=== PATIENT | female | born 1950 | race Caucasian/White ===

== ENCOUNTER → 2020-02-15 11:07 | Outpatient (BNVA) | payer MEDICARE, OTHER, SELFPAY | PROVIDERS: PCP Nurse Practitioner Family; Visit Provider Specialist | DX: R00.2 Palpitations (principal); I99.8 Other disorder of circulatory system; I10 Essential (primary) hypertension; F17.210 Nicotine dependence, cigarettes, uncomplicated | CPT/HCPCS: 99204 ==

== ENCOUNTER 2020-02-28 08:28 | Outpatient (CLI) | payer MEDICARE, OTHER, SELFPAY ==
--- NOTE | 2020-02-28 08:41 | MR_ITS ---
WS: [id number] MRI HEAD WITHOUT CONTRAST TECHNIQUE: Sagittal T1, T2 axial, T2 axial FLAIR, axial and coronal T1 images, axial susceptibility w eighted imaging, axial diffusion weighted images, and coronal T2 images were obtained. CLINICAL INFORMATION: TIA COMPARISON: None. FINDINGS: No evidence of restricted diffusion to suggest acute ischemia. Ventricular system and basal cisterns are patent. Moderate small vessel changes. Moderate parenchymal volume loss. Small vessel changes in the subhash. Normal posterior fossa. Normal vascular flow voids at the skull base. No extra-axial fluid collections. Paranasal sinuses and mastoid air cells well aerated. No hemosiderin on susceptibly weighted images. Normal optic chiasm and pituitary infundibulum. Mild s ymmetric atrophy involving the temporal lobes and hippocampal formations. MR/MR head wo con* [id number] IMPRESSION: 1. No evidence of restricted diffusion to suggest acute ischemia. 2. Moderate small vessel changes with moderate parenchymal volume loss. Small vessel changes in the subhash. 3. Paranasal sinuses and mastoid air cells are well aerated. 4. Mild symmetric atrophy temporal lobes and hippocampal formations. 5. No hemosiderin on susceptibly weighted images.
--- NOTE | 2020-02-28 09:51 | USCV_ITS ---
Janene Anne Age: 69 Gender: F : 1950 Exam Date: 02/28/2020 09:47 Ordering Phys: Golden Kruger MD ([email or web address]) Technologist: Alvino Ramos Exam Location: [facility] – [place] Indication: CCA DISEASE Risk Factors: None Previous Vascular Surgery: None Right Brachial BP: / Left Brachial BP: / Right Left Velocity (cm/s) Spectral Plaque Velocity (cm/s) Spectral Plaque Syst/Diast Broadening Syst/Diast Broadening 55.10/ 12.10 Prox CCA 55.00 / 14.50 57.30/ 14.30 Mid CCA 52.00 / 16.80 55.10/ 15.40 Homo Distal CCA 41.30 / 10.70 Hetro 99.80/ 31.40 Hetro Prox ICA 49.70 / 17.60 Hetro 54.30/ 13.40 Mid ICA 55.00 / 19.90 64.00/ 23.20 Distal ICA 71.10 / 19.90 85.30 ECA 81.80 1.74 ICA/CCA 1.29 Antegrade Vertebral Antegrade 42.80/ 16.00 cm/s 40.50/ 9.90 cm/s Tri Subclavian Tri CONCLUSIONS Right ICA stenosis <50%. Moderate atheromatous plaque right carotid bulb/ICA. Left ICA stenosis <50%. Moderate atheromatous plaque left carotid bulb/ICA. Normal antegrade Doppler flow noted in the right vertebral artery. Normal antegrade Doppler flow noted in the left vertebral artery. Leeroy Michael MD (Electronically Signed) Final Date: 29 Feb 2020 08:21 S
== END 2020-02-28 08:29 | disposition home or self-care (01) ==
PROVIDERS: Family Provider Nurse Practitioner Family; PCP Nurse Practitioner Family; Visit Provider Specialist
DX: I99.8 Other disorder of circulatory system (principal); I25.84 Coronary atherosclerosis due to calcified coronary lesion; I65.23 Occlusion and stenosis of bilateral carotid arteries
CPT/HCPCS: 70551; 93880

== ENCOUNTER → 2020-04-04 10:10 | Outpatient (BNVA) | payer MEDICARE, OTHER, SELFPAY | PROVIDERS: Family Provider Nurse Practitioner Family; PCP Nurse Practitioner Family; Visit Provider Obstetrics & Gynecology | DX: N39.3 Stress incontinence (female) (male) (principal); N81.10 Cystocele, unspecified | CPT/HCPCS: 81000 ==

== ENCOUNTER 2020-04-19 10:45 | Observation (INO) | payer MEDICARE, OTHER, SELFPAY ==
--- NOTE | 2020-04-17 10:36 | ANES.PREANE2 ---
Pre-Anesthetic Assessment Pre-Anesthetic Assessment: Height/Weight: Height 1.55 m Weight 66.678 kg Preop Diagnosis: Cystocele stage I and stress urinary incontinence Proposed Procedure: Operation Date: 04/19/20 11:00 Proposed Procedures p midurethral single incision sling(Not Applicable) - Kobe Alva MD Social: Social History: Tobacco and No alcohol Exam: Pre-Anes Outpt Exam: alert, oriented x 3, clear to auscultation bilaterally and regular rate & rhythm Airway: Submandibular: WNL Cervical ROM: WNL MP: 2 Dentition: False (lowers) and Partials (upper) History/ROS: No significant history except as noted Pulmonary: Pulmonary: None reported CV/HEM: CV/HEM: HTN : Comments: stress incontinance Hepatic: Hepatic: None reported GI: GI: GERD (well controlled) Metabolic: Metabolic: DM and Hyperlipidemia Musc/skel: Musc/skel: OA/DJD Neuropsych: Neuropsych: Anxiety, CVA (right side weakness, 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) and Depression Anesthetic Plan: ASA status: 3 Anesthesia: Anesthesia Evaluation and General Other: Scop patch Risk of > 500 ml blood loss (7ml/kg in children): Yes, adequate IV access and fluids planned PFSH Anesthesia PFSH: Medical History Carotid arterial disease Chest pain HTN (hypertension) Hx of dizziness Palpitations Tobacco abuse Vaginal prolapse Surgical History (Updated 04/17/20 @ 10:37 by Sathish Almeida MD) H/O arthroscopic knee surgery H/O bladder repair surgery H/O section H/O neck surgery History of carpal tunnel surgery Hx of cholecystectomy Hx of hysterectomy, total Family History Daughter No problems noted. Brother Colon cancer, Onset Age: 64 Diabetes Hypertension Mother Diabetes Hypertension Stroke Denies family history of Clotting disorder Hyperlipidemia Anesthesia complication Bleeding disorder Social History Smoking and tobacco status: current every day smoker cigarettes Packs smoked per day: 0.5 Alcohol intake: never Lives independently: Yes Household members: spouse Marital status: Data Anesthesia CBC & Chem 7: 04/17/20 10:06 Cardiac Studies: No Data to Display
[2020-04-17 11:06] LABS: Basophils # 0.1 10^3/uL (0.0-0.1); Basophils % 1.1 %; Eosinophils # 0.4 10^3/uL (0.0-0.8); Eosinophils % 3.6 %; Hematocrit 40.2 % (37.0-47.0); Hemoglobin 13.3 g/dL (11.5-15.3); Lymphocytes # 3.5 10^3/uL (0.8-4.8); Lymphocytes % 34.8 %; Mean Corpuscular HGB Conc 33.1 g/dL (30.0-36.0); Mean Corpuscular Hemoglobin 31.3 pg (28.0-34.0); Mean Corpuscular Volume 94.6 fL (81-99); Mean Platelet Volume 10.1 fL (7.4-10.4); Monocytes # 0.8 10^3/uL (0.2-0.9); Monocytes % 7.5 %; Neutrophils # 5.3 10^3/uL (1.8-7.7); Neutrophils % 52.8 %; Nucleated Red Blood Cells % 0 %; Platelet Count 229 10^3/cmm (130-400); Red Blood Count 4.25 10^6/uL (4.1-5.3); Red Cell Distribution Width 12.9 % (12.1-15.1)
[2020-04-17 11:09] LABS: Add Urine Microscopic? NO
[2020-04-17 11:30] LABS: Alanine Aminotransferase 21 U/L (0-33); Albumin Level 4.6 g/dL (3.5-5.2); Alkaline Phosphatase 40 IU/L (35-105); Anion Gap 18.8 (5-19); Aspartate Amino Transferase 29 U/L (0-32); Blood Urea Nitrogen 20 mg/dL (8-23); Calcium 9.9 mg/dL (8.5-10.5); Carbon Dioxide 25 mmol/L (22-29); Chloride 99 mmol/L (98-107); Globulin 3.1 g/dL (1.3-4.6); Glomerular Filtration Rate 49.2 mL/min (90-130); Glucose 116 mg/dL (65-115); Osmolality Calculated 284 mOsm/kg (285-295); Potassium 4.8 mmol/L (3.5-5.1); Sodium 138 mmol/L (136-145); Total Bilirubin 0.4 mg/dL (0.15-1.2); Total Protein 7.7 g/dL (6.6-8.7)
[2020-04-17 11:46] LABS: Bilirubin Urine Neg (NEGATIVE); Blood Urine Neg (Negative); Glucose Urine UA Norm (Normal); Ketones Urine Negative (Negative); Leukocyte Esterase Urine Negative (Negative); Nitrate Urine Negative (Negative); Protein Urine Neg (Negative); Urine Appearance Clear (CLEAR); Urine Color Yellow (Yellow); Urobilinogen Urine Norm (Negative); pH Urine 5 (5-7)
[2020-04-19] VITALS (17 sets, daily range): BP systolic 96–128; BP diastolic 53–85; PULSE 62–90; RESP 12–21; TEMP 35.8–36.7; O2SAT 93–100
[2020-04-19] MEDS: sodium chloride 0.9% 1,000 ML 30 ML IV (08:25)
[2020-04-19] MEDS: gabapentin 300 mg Capsule PO (08:34)
[2020-04-19] MEDS: ketorolac 30 mg/mL INJ IVP ×3 (08:34→17:27)
[2020-04-19 08:35] LABS: Glucose Point of Care 133 mg/dL (70-110)
--- NOTE | 2020-04-19 09:04 | W.PM.OPSUD ---
Surgery/Procedure H&P Update DATE OF PROCEDURE: April 19, 2020 DATE H&P PERFORMED: 04/17/20 H&P UPDATE INFORMATION: I have reviewed H&P completed within last 30 days, I have examined patient prior to procedure and No changes to prior documentation PREOP DIAGNOSIS: Cystocele stage I and stress urinary incontinence PLANNED PROCEDURE: Operation Date: 04/19/20 09:10 Proposed Procedures p midurethral single incision sling(Not Applicable) - Kobe Alva MD
--- NOTE | 2020-04-19 10:22 | PM.OP ---
Operative Report Date of procedure: April 19, 2020 Pre-op Diagnosis: Cystocele stage I and stress urinary incontinence Post-op diagnosis: same Procedure Done: Single incision midurethral sling Pathology: none sent Anesthesia: General Estimated blood loss (mL): 10 IV fluids (mL): 900 Urine output (mL): 100 Condition: stable Disposition: PACU Brief History: 69-year-old female post hysterectomy and anterior repair with TOT developed stress urinary incontinence. Procedure: After obtaining informed consent, the patient was taken to the operating room and placed in the supine position, given general anesthesia, and prepped and draped in sterile fashion. The abdomen, vulva and vagina were prepped and draped in a sterile manner. A time out procedure was performed. Exam under anesthesia performed. A Ramirez catheter was placed in the bladder. The anterior vaginal mucosa beneath the midurethra was infiltrated with 0.5% Marcaine with epinephrine. A vertical midline incision was made beneath the midurethra, nearly 1.5 cm length. Careful submucosal dissection was performed bilaterally up to the interior portion of the inferior pubic ramus. The insertion of adductor longus tendon on the patient?s pubic ramus was identified as reference land johnson. Palpated the notch along the internal edge of ischiopubic ramus where the adductor longus tendon and the inferior pubic ramus meet. The needle of the SIS inserted aiming at the location of this notch. One of the integrated self-fixating tips place onto the needle by sliding it over the end of the needle. The needle/sling assembly was inserted toward the location of identified reference notch making sure that the flat of the handle is perpendicular to the desired path. The needle was tracked along the posterior surface of the ischiopubic ramus until the midline johnson on the mesh is approximately at the midline position under the urethra. The needle was removed and the same was repeated on the contralateral side until the appropriate sling tension under the urethra was achieved ensuring that the mesh lays flat. The needle was removed and vaginal incision was closed in a running interlocking fashion with 2-0 Vicryl. Excellent hemostasis was obtained. Sponge, lap, needle, and instrument counts were correct times three. The patient was taken to the recovery room, awake and in stable condition.
--- NOTE | 2020-04-19 10:39 | SUR.PHASEI ---
PT ON RA TRIAL, PT AWAKES TO VOICE, DENIES PAIN AND NAUSEA, VSS ABD SOFT WISAM PAD D/I
[2020-04-19] MEDS: sodium chloride 0.9% 1,000 ML 100 ML IV (10:45)
--- NOTE | 2020-04-19 11:07 | SUR.PHASEI ---
1052 PT RECOVERED AND OUT OF PHASE 1 NOW IN HOLDING , REPORT CALLED , PT NOW WAITING FOR BED PT SLEEPS IF NOT DISTURBED 1107 PT SLEEPING WITH NO COMPLAINTS VSS, WAITING FOR ROOM TO BE CLEANED.
--- NOTE | 2020-04-19 11:38 | SUR.PHASEI ---
1125 PT TO FLOOR MOVES SELF TO BED WITHOUT ASSIST, ROSE PATENT OF CLEAR YELLOW URINE, VSS
[2020-04-19] MEDS: pantoprazole DR 40 mg Tablet PO (12:32)
[2020-04-19] MEDS: sodium chloride 0.9% 500 ML IV (16:09)
[2020-04-19] MEDS: docusate sodium 100 mg Capsule PO (17:27)
[2020-04-19] MEDS: dextrose 5%-lactated ringers 1,000 ML 125 ML IV (17:30)
[2020-04-19] MEDS: sodium chloride 0.9% 500 ML 999 ML IV ×2 (18:18→18:56)
[2020-04-19] MEDS: atorvastatin 40 mg Tablet PO (20:51)
[2020-04-19] MEDS: ALPRAZolam 0.5 mg Tablet PO (20:51)
[2020-04-20 04:15] VITALS: BP 103/64; PULSE 71; RESP 18; TEMP 36.7
[2020-04-20 05:23] LABS: Hematocrit 31.5 % (37.0-47.0); Hemoglobin 9.9 g/dL (11.5-15.3); Mean Corpuscular HGB Conc 31.4 g/dL (30.0-36.0); Mean Corpuscular Hemoglobin 30.7 pg (28.0-34.0); Mean Corpuscular Volume 97.8 fL (81-99); Mean Platelet Volume 10.4 fL (7.4-10.4); Platelet Count 167 10^3/cmm (130-400); Red Blood Count 3.22 10^6/uL (4.1-5.3); Red Cell Distribution Width 13.2 % (12.1-15.1); White Blood Count 8.6 10^3/uL (4.0-10.0)
[2020-04-20 06:15] VITALS: PULSE 77; RESP 18; O2SAT 95
--- NOTE | 2020-04-20 09:00 | P.DS_ITS ---
Discharge Providers MULTI LINE CLAIMS ADJUSTER Date of Admission: 04/19/20 10:45 Date of Discharge: 05/25/20 Attending Provider at Admission: Kobe Alva MD Attending Provider at Discharge: Kobe Alva MD Primary Care Provider: EVARISTO Nunez Reason for Visit Reason for Visit: urinary stress incontinence vaginal prolapse Hospital Course Hospital Course: 69-year-old female with stress urinary incontinence. Single incision mid urethral sling was performed without complication. Overnight observation was uneventful. Physical Exam Narrative: EXAM NARRATIVE: GA: Alert and oriented ?3. HEENT: WNL. Heart: Regular rate and rhythm. Lungs: Clear to auscultation bilaterally. Abdomen: Bowel sounds present, nontender, minimal tenderness, incision clean and dry, no redness, pain or edema. 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 Extremities: No edema, no cyanosis, no calves pain. Urinary Catheter Management^: Ramirez: Cath Placed During This Visit: yes Urinary Catheter Date of Insertion: 04/19/20 Urinary Catheter Time of Insertion: 09:53 Discharge Data Data Completed and Pending: Labs from last 24 hours 04/20/20 04:40 WBC 8.6 RBC 3.22 L Hgb 9.9 L Hct 31.5 L MCV 97.8 MCH 30.7 MCHC 31.4 RDW 13.2 Plt Count 167 MPV 10.4 Vitals: Last Vital Signs Temp 98.1 F 04/20/20 04:15 Pulse 77 04/20/20 06:15 Resp 18 04/20/20 06:15 BP 103/64 04/20/20 04:15 Pulse Ox 95 04/20/20 06:15 Discharge Plan Discharge Patient Disposition: Home Condition: Stable Prescriptions: Continued lisinopril-hydrochlorothiazide 20-12.5 mg tablet 1 tab PO DAILY RF: 0 duloxetine [Cymbalta] 60 mg capsule,delayed release(DR/EC) 60 mg PO DAILY RF: 0 alprazolam 0.5 mg tablet 0.5 mg PO DAILY RF: 0 metoprolol succinate 50 mg tablet extended release 24 hr 50 mg PO DAILY RF: 0 atorvastatin 40 mg tablet 40 mg PO DAILY RF: 0 duloxetine 30 mg capsule, delayed rel sprinkle 60 mg PO DAILY RF: 0 levothyroxine 50 mcg tablet 25 mcg PO DAILY RF: 0 metformin 500 mg tablet 500 mg PO DAILY RF: 0 omeprazole 20 mg capsule,delayed release(DR/EC) 20 mg PO DAILY RF: 0 No Action nitrofurantoin macrocrystal 100 mg capsule 100 mg PO BID 5 Days Qty: 10 RF: 0 Discharge Orders: Discharge Order (Routine); Ordered 04/20/20 Ordered By: Kobe Alva Referrals: Kobe Alva MD [Physician] - 04/28/20 2:45 pm (Please keep these appointments and disregard the appointments that was pr eviously given to you * Your 2 week incision check is 04/28/2020 at 2:45 * Your 6 week appointment is 05/30/2020 at 12:45) Discharge Diet: As Directed Discharge Activity: Increase activity as tolerated Patient Instructions: Hydrocodone/Acetaminophen (By mouth), Ramirez Catheter Placement and Care (DC), Bladder Sling Procedures (DC), Urinary Leg Bag (GEN), OB Abdominal Surgery - [facility], OB Discharge Report, OB Food/Drug Interaction Guide, Post Anesthesia Care Activity Restrictions/Additional Instructions: Pelvic rest for 6 weeks (no sex, no tampons, no vaginal douches). Return to the emergency room if any fever, increased bleeding or pain. Discharge Date/Time: 04/20/20 16:30 Discharge Attestations MULTI LINE CLAIMS ADJUSTER Time Spent in Discharge Care*: greater than 30 min Specific Discharge Activities: Specific discharge activities: educating patient Coding Level of Care Code Acute Axle And Frame Mechanic for Tanya Thompson
[2020-04-20] MEDS: lisinopril 20 mg Tablet PO (09:41)
[2020-04-20] MEDS: levothyroxine 25 mcg Tablet PO (09:42)
[2020-04-20] MEDS: hydroCHLOROthiazide 25 mg Tablet 12.5 MG PO (09:43)
[2020-04-20] MEDS: docusate sodium 100 mg Capsule PO (09:44)
[2020-04-20] MEDS: pantoprazole DR 40 mg Tablet PO (09:44)
[2020-04-20] MEDS: duloxetine 60 mg Capsule PO (09:44)
[2020-04-20] MEDS: metoprolol succinate ER (24 HR) 50 mg Tablet PO (09:47)
[2020-04-20 12:00] VITALS: BP 128/66; PULSE 72; RESP 16; TEMP 36.7; O2SAT 98
[2020-04-20 16:00] VITALS: BP 128/63; PULSE 71; RESP 18; TEMP 36.8; O2SAT 96
== END 2020-04-20 16:30 | disposition home or self-care (01) ==
LOC: OBGYN 10:45
PROVIDERS: Admitting Provider Obstetrics & Gynecology; PCP Nurse Practitioner Family; Visit Provider Obstetrics & Gynecology
PROC: (CPT 57288; principal; 2020-04-19 09:10)
DX: N81.10 Cystocele, unspecified (principal); N39.3 Stress incontinence (female) (male); E11.65 Type 2 diabetes mellitus with hyperglycemia; I10 Essential (primary) hypertension; E78.5 Hyperlipidemia, unspecified; F17.210 Nicotine dependence, cigarettes, uncomplicated; I69.351 Hemiplegia and hemiparesis following cerebral infarction affecting right dominant side; Z79.84 Long term (current) use of oral hypoglycemic drugs; Z90.710 Acquired absence of both cervix and uterus
CPT/HCPCS: 57288; 12345; 36415; 36416; 51702; 51798; 80053; 81003; 82962; 85025; 85027; 86850; 86900; 96361; 96365; 96374; 96375; C1713; G0378; J0690; J1885; J2001; J2704; J3010; J3490; J7030; J7040

== ENCOUNTER → 2020-06-21 07:54 | Outpatient (BNVA) | payer MEDICARE, OTHER, SELFPAY | PROVIDERS: PCP Nurse Practitioner Family; Visit Provider Specialist | DX: I99.8 Other disorder of circulatory system (principal); G31.84 Mild cognitive impairment of uncertain or unknown etiology; I67.9 Cerebrovascular disease, unspecified; F17.210 Nicotine dependence, cigarettes, uncomplicated; I10 Essential (primary) hypertension; E11.9 Type 2 diabetes mellitus without complications | CPT/HCPCS: 96116; 99214 ==

== ENCOUNTER → 2020-08-30 09:15 | Outpatient (BNVA) | payer MEDICARE, OTHER, SELFPAY | PROVIDERS: PCP Nurse Practitioner Family; Visit Provider Specialist | DX: G31.84 Mild cognitive impairment of uncertain or unknown etiology (principal); R56.9 Unspecified convulsions; I99.8 Other disorder of circulatory system; I67.9 Cerebrovascular disease, unspecified; F17.210 Nicotine dependence, cigarettes, uncomplicated | CPT/HCPCS: 96116; 99214 ==

== ENCOUNTER 2020-09-11 07:34 | Outpatient (CLI) | payer MEDICARE, OTHER, SELFPAY ==
--- NOTE | 2020-09-11 08:13 | MR_ITS ---
WS: [id number] MRI BRAIN WITHOUT CONTRAST HISTORY: I99.8 - Other disorder of circulatory system COMPARISON: 02/28/2020 TECHNIQUE: Diffusion imaging, multiplanar T1, T2 and FLAIR imaging obtained. No evidence for acute infarct or hemorrhage. Huggins-white matter differentiation is normal. Mild atrophy with more moderate chronic ischemic changes in the white matter. Bilateral distribution T2 and FLAIR signal hyperintensities. There is additional moderate bilateral microvascular ischemic c hanges in the subhash. No significant progression. Ventricles and extra-axial spaces are normal. No inferior displacement of cerebellar tonsils. The sella turcica and pituitary gland are unremarkabl e. Posterior fossa is also unremarkable. Dural venous sinuses and [place] demonstrate no abnormality on this unenhanced studies. Paranasal sinuses: Clear. Mastoid air cells: Normal. Calvarium and scalp: Intact. MR/MR head wo con* [id number] IMPRESSION: 1. No acute infarct or hemorrhage. 2. Mild stable cerebral atrophy. 3. Moderate chronic microvascular ischemic disease in the supratentorial white matter and bilaterally within the subhash. No significant progression since 2019.
== END 2020-09-11 07:35 | disposition home or self-care (01) ==
LOC: RADWPI 07:37
PROVIDERS: PCP Nurse Practitioner Family; Visit Provider Specialist
DX: I99.8 Other disorder of circulatory system (principal); G31.9 Degenerative disease of nervous system, unspecified; I67.82 Cerebral ischemia
CPT/HCPCS: 70551

== ENCOUNTER 2020-09-27 18:23 | Emergency (ER) | payer MEDICARE, OTHER, SELFPAY ==
--- NOTE | 2020-09-27 18:28 | ECG_ITS ---
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 Measurements Intervals [place] Rate: 78 P: 21 MI: 105 QRS: 81 QRSD: 76 T: 80 QT: 339 QTc: 387 Interpretive Statements SINUS RHYTHM WITH SHORT MI INTERVAL INTERPRETATION BASED ON A DEFAULT AGE OF 40 YEARS Compared to ECG 09/23/2019 10:39:19 Short MI interval now present Electronically Signed On 09-28-2020 22:23:51 BIT TRIPOL[employer] by Sheyla Ervin M.D. [email or web address]
--- NOTE | 2020-09-27 18:28 | XR_ITS ---
WS: [id number] PORTABLE CHEST HISTORY: sob COMPARISON: 09/26/2020 Lungs are clear and well expanded. No pleural effusion or pneumothorax. Cardiac size: Normal. Mediastinum/Aorta: Mild atherosclerosis aorta. Prior anterior cervical fusion. XR/XR chest 1V portable [id number] IMPRESSION: Partially calcified thoracic aorta. No pneumonia.
[2020-09-27 18:34] VITALS: BP 139/83; PULSE 86; RESP 18; TEMP 37; O2SAT 95; BMI 28.7
--- NOTE | 2020-09-27 18:36 | ECG_ITS ---
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 Measurements Intervals [place] Rate: 78 P: 21 MA: 105 QRS: 81 QRSD: 76 T: 80 QT: 339 QTc: 387 Interpretive Statements SINUS RHYTHM WITH SHORT MA INTERVAL INTERPRETATION BASED ON A DEFAULT AGE OF 40 YEARS Compared to ECG 09/23/2019 10:39:19 Short MA interval now present Electronically Signed On 09-28-2020 22:23:06 SALES REPRESENTATIVE FACILITY [employer] by Sheyla Ervin M.D. [email or web address]
--- NOTE | 2020-09-27 18:37 | ED_ITS ---
HPI - SOB/Dyspnea General: Chief Complaint: Shortness of Breath/Dyspnea Stated Complaint: pneumonia, SOB Time Seen by Provider: 09/27/20 18:27 Source: patient Mode of arrival: ambulatory Limitations: no limitations History of Present Illness: HPI Narrative: Mrs. Anne is a very nice 69-year-old female who comes in complaining of shortness of breath and cough. Patient states she has been sick since September 12 and has had 2 rounds of steroids and has been tested for Covid but has not improved. Her Covid test was negative. Patient states her cough is occasionally productive and when is she has yellow-green sputum. She denies any hemoptysis. Symptoms are made worse with exertion. She is wheezing. Patient stopped her steroids approximately 3 to 4 days ago and she started antibiotics yesterday. She was placed on doxycycline. Patient had outpatient lab work and a chest x-ray which showed a markedly elevated white blood cell count and because of this and what she states was a pneumonia on her chest x-ray she was referred here for reevaluation. Patient states overall her symptoms are not better but worse. She did state at the beginning of this that she had some diarrhea and nausea but that has since passed. Patient has a history of smoking but does not carry the diagnosis of COPD or emphysema. Other than what she is described here she denies any other complaints or concerns other than generalized flulike symptoms. Associated symptoms: Reports chest congestion and fever(s); Deny abdominal pain, chest pain, diaphoresis, dizziness, extremity pain, hemoptysis, lightheadedness, nausea, orthopnea, palpitations, syncope or vomiting Review of Systems Const: Reports: fever(s), chills, body aches, fatigue and malaise; Denies: diaphoresis Eyes: Denies: change in vision, blurry vision, photophobia, eye discomfort, eye discharge, eye redness or yellow eyes ENMT: Denies: throat pain, odynophagia, hoarseness, swelling of lips/tongue, ear or mastoid pain, ear discharge, change in hearing or nasal discharge Card: Denies: chest pain, palpitations, irregular heart rhythm, edema, lightheadedness, syncope, pre-syncope, dyspnea on exertion or orthopnea Resp: Reports: dyspnea, productive cough, wheezing and chest congestion; Denies: non-productive cough or hemoptysis GI: Denies: abdominal pain, nausea, vomiting, hematemesis, coffee ground emesis, heartburn, diarrhea, constipation, GI cramping, hematochezia or melena : Denies: flank pain, dysuria, urinary frequency, urinary urgency or hematuria Musc: Denies: neck pain, back pain, extremity pain, extremity swelling, joint pain, joint swelling, joint redness, joint warmth or joint stiffness Skin/Breast: Denies: rash, pruritus, erythema, skin pain or skin tenderness Neuro: Denies: headache(s), numbness in extremities, weakness in extremities, sensory changes, lack of coordination, difficulty walking, dizziness, vertigo, confusion, Slurred speech present or seizure-like activity Rui/Lymph: Denies: easy bruising, easy bleeding, petechiae, purpura or enlarged lymph nodes All/Imm: Denies: urticaria, throat swelling, tongue swelling, facial swelling or acute wheezing PFSH ED PFSH: Medical History Aftercare following surgery of the genitourinary system Anxiety Carotid arterial disease Chest pain DM type 2 (diabetes mellitus, type 2) GERD (gastroesophageal reflux disease) HTN (hypertension) Hx of dizziness Hyperlipidemia Hypertension Hypothyroidism Palpitations Tobacco abuse Vaginal prolapse Surgical History H/O arthroscopic knee surgery H/O bladder repair surgery H/O section H/O neck surgery History of carpal tunnel surgery Hx of cholecystectomy Hx of hysterectomy, total Family History Daughter No problems noted. Brother Colon cancer, Onset Age: 64 Diabetes Hypertension Mother Diabetes Hypertension Stroke Denies family history of Clotting disorder Hyperlipidemia Anesthesia complication Bleeding disorder Social History Smoking and tobacco status: current every day smoker cigarettes Packs smoked per day: 0.5 Alcohol intake: never Lives independently: Yes Marital status: Physical Exam Const: COMMON NORMALS: no acute distress, patient oriented x3, no limitations and alert GENERAL APPEARANCE: cooperative HENMT: COMMON NORMALS: normocephalic, atraumatic, external ears normal, EAC's normal and Normal external nose present HEAD & SCALP: normal to inspection, normocephalic and atraumatic FACE & SINUS: normal facial exam and face symmetric NOSE: Normal external nose present and Normal nares present EXTERNAL EAR: Yes external ears normal EXTERNAL AUDITORY CANAL: EAC's normal MOUTH: Normal oral and palatal mucosa present, lip normal and tongue normal Eye: COMMON NORMALS: Equal, round and reactive pupils present and conjunctivae normal GENERAL EYE: appearance normal, both eyes and all related structures ALIGNMENT: Yes alignment normal PERIORBITAL: periorbital findings normal EYELID: eyelids normal CONJUNCTIVA: Yes conjunctivae normal SCLERA: sclerae normal PUPIL: Yes Equal, round and reactive pupils present Neck/C-Spine: COMMON NORMALS: full ROM, no lymphadenopathy, supple, no meningeal signs and no JVD GENERAL: Yes normal visual inspection and Yes trachea midline Chest: COMMONS NORMALS: normal inspection of the chest and normal palpation of entire chest wall Resp: COMMON NORMALS: No retractions and No use of accessory muscles EFFORT & INSPECTION: Yes able to speak in complete sentences, Yes symmetric chest movement, Yes labored, Yes Actively coughing and Yes audible wheezes AUSCULTATION: no crackles, no rales, rhonchi and wheezes Cardio: COMMON NORMALS: no JVD, regular rate, regular rhythm, S1 normal heart sound present and S2 normal heart sound present RATE: regular rate RHYTHM: regular rhythm HEART SOUNDS: S1 normal heart sound present, S2 normal heart sound present, no click, no gallops, no murmurs and no rubs GI: COMMON NORMALS: Soft to palpation and No hepatosplenomegaly present PALPATION: Yes Soft to palpation, No Tenderness to palpation present (GI), No Guarding due to palpation present (GI), No Rigid due to palpation, Yes No hepatosplenomegaly present, No Hernia present, No Palpable mass present and No Pulsatile mass present : COMMON NORMALS: Yes no CVA tenderness BLADDER/KIDNEY EXAM: Yes no CVA tenderness EXTERNAL FEMALE EXAM: No Hernia present Back/Pelvis: COMMON NORMALS: no CVA tenderness, thoracic and lumbar spine normal to inspection, no thoracic nor lumbar tenderness and thoraco-lumbar ROM normal Extremity: COMMON NORMALS: normal to inspection, full ROM, capillary refill normal, no joint enlargement, no clubbing, cyanosis or edema and no calf tenderness Neuro: COMMON NORMALS: patient oriented x3, CN's II-XII intact bilaterally, moves all extremities, no focal motor deficits and no sensory deficits noted SENSORIUM/ORIENTATION: Yes alert MENINGEAL SIGNS: Yes no meningeal signs SPEECH: speech normal Psych: COMMON NORMALS: mental status grossly normal, Normal thought process present, cooperative, normal affect, speech normal and activity/motor behavior normal SPEECH: Yes normal speech THOUGHT PROCESS: Normal thought process present Skin: COMMON NORMALS: no rashes or lesions noted, turgor normal, no jaundice, no petechiae and no mottling GENERAL SKIN EXAM: no rashes or lesions noted and turgor normal Course Vital Signs: Vital signs: Vital Signs Temperature 99.6 F 09/27/20 21:53 Pulse Rate 86 09/27/20 22:42 Respiratory Rate 18 09/27/20 22:42 Blood Pressure 98/66 09/27/20 21:53 Pulse Oximetry 96 09/27/20 22:42 MDM - SOB/Dyspnea MDM Narrative: Medical decision making narrative: 2209 -patient is feeling much better and is ready to go home. I have offered to put her in the hospital for further care but she declines. I am going to send the PTC test for Covid as I think the patient likely had this and may be does have a rebound bacterial infection. After her albuterol and fluids here and her fever has resolved she is feeling much better. The patient was offered admission but she declined. She feels that she would rest better at home. Her white blood cell count is markedly elevated but she has been on 10 days of steroids finishing 2 days ago. I think this along with an acute infection is likely the cause for this significant raise in her white blood cell count. Overall the patient is not significantly hypoxic and at rest she looks much better. She is ready to go home and declines admission but she does understand she is more than welcome to return if her symptoms worsen or she changes her mind. Lab Data: Attestation: I reviewed the patient's lab results. Labs: Lab Results 09/27/20 09/27/20 09/27/20 Range/Units 19:02 19:02 19:02 WBC 25.6 H (4.0-10.0) 10^3/ uL RBC 4.69 (4.1-5.3) 10^6/u L Hgb 13.8 (11.5-15.3) g/dL Hct 41.7 (37.0-47.0) % MCV 88.9 (81-99) fL MCH 29.4 (28.0-34.0) pg MCHC 33.1 (30.0-36.0) g/dL RDW 13.3 (12.1-15.1) % Plt Count 307 (130-400) 10^3/c mm MPV 10.0 (7.4-10.4) fL Neut % (Auto) 73.3 % Lymph % (Auto) 19.7 % Sierra % (Auto) 5.1 % Eos % (Auto) 0.7 % Baso % (Auto) 0.3 % Neut # (Auto) 18.83 H (1.8-7.7) 10^3/u L Lymph # (Auto) 5.0 H (0.8-4.8) 10^3/u L Sierra # (Auto) 1.3 H (0.2-0.9) 10^3/u L Eos # (Auto) 0.2 (0.0-0.8) 10^3/u L Baso # (Auto) 0.1 (0.0-0.1) 10^3/u L Nucleated RBC % (a uto) 0 % Nucleated RBCs # 0.0 /100WBC PT 12.70 (12.1-14.9) SECO NDS INR 0.93 (0.8-1.2) D-Dimer (0-0.59) ug/mIFE U Specimen Type Sample Site ABG pH (7.35-7.45) ABG pCO2 (35-45) mmHg ABG pO2 (80.0-100.0) mmH g ABG HCO3 (22-26) mmol/L ABG Base Excess (-2.0-2.0) mmol/ L Ben Test Hematocrit (37-47) % O2 Delivery Device O2 Liters/Min % Accounting Technician ID Sodium 135 L (136-145) mmol/L Potassium 5.1 (3.5-5.1) mmol/L Chloride 95 L (98-107) mmol/L Carbon Dioxide 27 (22-29) mmol/L Anion Gap 18.1 (5-19) BUN 23 (8-23) mg/dL Creatinine 1.1 H (0.5-0.9) mg/dL GFR Calculation 49.2 L (90-130) mL/min Glucose 114 (65-115) mg/dL Calculated Osmolal ity 285 (285-295) mOsm/k g Calcium 10.0 (8.5-10.5) mg/dL Total Bilirubin 0.5 (0.15-1.2) mg/dL AST 23 (0-32) U/L ALT 23 (0-33) U/L Alkaline Phosphata se 59 (35-105) IU/L Troponin T Baselin e (0-10) ng/L Troponin T 120 Min [place] (0-10) ng/L Delta Troponin T (0-10) ABS# NT-Pro-B Natriuret Pep 490 H (0-125) pg/mL Total Protein 6.6 (6.6-8.7) g/dL Albumin 3.7 (3.5-5.2) g/dL Globulin 2.9 (1.3-4.6) g/dL Influenza Type A A g (Negative) Influenza Type B A g (Negative) SARS-CoV-2 Ag (Rap id) (Negative) 09/27/20 09/27/20 09/27/20 Range/Units 19:02 19:02 19:02 WBC (4.0-10.0) 10^3/ uL RBC (4.1-5.3) 10^6/u L Hgb (11.5-15.3) g/dL Hct (37.0-47.0) % MCV (81-99) fL MCH (28.0-34.0) pg MCHC (30.0-36.0) g/dL RDW (12.1-15.1) % Plt Count (130-400) 10^3/c mm MPV (7.4-10.4) fL Neut % (Auto) % Lymph % (Auto) % Sierra % (Auto) % Eos % (Auto) % Baso % (Auto) % Neut # (Auto) (1.8-7.7) 10^3/u L Lymph # (Auto) (0.8-4.8) 10^3/u L Sierra # (Auto) (0.2-0.9) 10^3/u L Eos # (Auto) (0.0-0.8) 10^3/u L Baso # (Auto) (0.0-0.1) 10^3/u L Nucleated RBC % (a uto) % Nucleated RBCs # /100WBC PT (12.1-14.9) SECO NDS INR (0.8-1.2) D-Dimer 1.70 H (0-0.59) ug/mIFE U Specimen Type Arterial Sample Site Brachial, right ABG pH 7.55 H (7.35-7.45) ABG pCO2 32.2 L (35-45) mmHg ABG pO2 93.2 (80.0-100.0) mmH g ABG HCO3 27.9 H (22-26) mmol/L ABG Base Excess 5.8 H (-2.0-2.0) mmol/ L Ben Test N/a Hematocrit 42.9 (37-47) % O2 Delivery Device Nc O2 Liters/Min 2.0 % Accounting Technician ID Harkr Sodium (136-145) mmol/L Potassium (3.5-5.1) mmol/L Chloride (98-107) mmol/L Carbon Dioxide (22-29) mmol/L Anion Gap (5-19) BUN (8-23) mg/dL Creatinine (0.5-0.9) mg/dL GFR Calculation (90-130) mL/min Glucose (65-115) mg/dL Calculated Osmolal ity (285-295) mOsm/k g Calcium (8.5-10.5) mg/dL Total Bilirubin (0.15-1.2) mg/dL AST (0-32) U/L ALT (0-33) U/L Alkaline Phosphata se (35-105) IU/L Troponin T Baselin e 18 H (0-10) ng/L Troponin T 120 Min [place] (0-10) ng/L Delta Troponin T (0-10) ABS# NT-Pro-B Natriuret Pep (0-125) pg/mL Total Protein (6.6-8.7) g/dL Albumin (3.5-5.2) g/dL Globulin (1.3-4.6) g/dL Influenza Type A A g (Negative) Influenza Type B A g (Negative) SARS-CoV-2 Ag (Rap id) (Negative) 09/27/20 09/27/20 09/27/20 Range/Units 19:15 19:15 21:51 WBC (4.0-10.0) 10^3/ uL RBC (4.1-5.3) 10^6/u L Hgb (11.5-15.3) g/dL Hct (37.0-47.0) % MCV (81-99) fL MCH (28.0-34.0) pg MCHC (30.0-36.0) g/dL RDW (12.1-15.1) % Plt Count (130-400) 10^3/c mm MPV (7.4-10.4) fL Neut % (Auto) % Lymph % (Auto) % Sierra % (Auto) % Eos % (Auto) % Baso % (Auto) % Neut # (Auto) (1.8-7.7) 10^3/u L Lymph # (Auto) (0.8-4.8) 10^3/u L Sierra # (Auto) (0.2-0.9) 10^3/u L Eos # (Auto) (0.0-0.8) 10^3/u L Baso # (Auto) (0.0-0.1) 10^3/u L Nucleated RBC % (a uto) % Nucleated RBCs # /100WBC PT (12.1-14.9) SECO NDS INR (0.8-1.2) D-Dimer (0-0.59) ug/mIFE U Specimen Type Sample Site ABG pH (7.35-7.45) ABG pCO2 (35-45) mmHg ABG pO2 (80.0-100.0) mmH g ABG HCO3 (22-26) mmol/L ABG Base Excess (-2.0-2.0) mmol/ L Ben Test Hematocrit (37-47) % O2 Delivery Device O2 Liters/Min % Accounting Technician ID Sodium (136-145) mmol/L Potassium (3.5-5.1) mmol/L Chloride (98-107) mmol/L Carbon Dioxide (22-29) mmol/L Anion Gap (5-19) BUN (8-23) mg/dL Creatinine (0.5-0.9) mg/dL GFR Calculation (90-130) mL/min Glucose (65-115) mg/dL Calculated Osmolal ity (285-295) mOsm/k g Calcium (8.5-10.5) mg/dL Total Bilirubin (0.15-1.2) mg/dL AST (0-32) U/L ALT (0-33) U/L Alkaline Phosphata se (35-105) IU/L Troponin T Baselin e (0-10) ng/L Troponin T 120 Min [place] 14.75 H (0-10) ng/L Delta Troponin T -3.25 L (0-10) ABS# NT-Pro-B Natriuret Pep (0-125) pg/mL Total Protein (6.6-8.7) g/dL Albumin (3.5-5.2) g/dL Globulin (1.3-4.6) g/dL Influenza Type A A g Negative (Negative) Influenza Type B A g Negative (Negative) SARS-CoV-2 Ag (Rap id) Negative (Negative) Imaging Data^: CXR: Attestation: I personally reviewed and interpreted this imaging study as follows: My impression: Possible bilateral lower lobe interstitial infiltrates, right greater than left. CT Chest: Radiologist's impression: [address] [address] [address] Scan Report Signed Patient: Janene Anne Unit #: [id number] : 1950 Age/Sex: 69 / F ADM Date: 09/27/20 Loc: ER Room/Bed: Attending Dr: Ordering Provider/Ordering MD: Mary Danielle DO Date of Service: 09/27/20 Procedure(s): CT angio chest PE protcl [id number] Accession Number(s): [id number] Report Number: [id number] PROCEDURE INFORMATION: Exam: CT Angiography Chest With Contrast Exam date and time: 09/27/2020 9:08 PM Age: 69 years old Clinical indication: Cough and dyspnea; Additional info: Dyspnea, positive d-dimer TECHNIQUE: Imaging protocol: Computed tomographic angiography of the chest with intravenous contrast. 3D rendering (Not supervised by radiologist): MIP and/or 3D reconstructed images were created by the technologist. Radiation optimization: All CT scans at this facility use at least one of these dose optimization techniques: automated exposure control; mA and/or kV adjustment per patient size (includes targeted exams where dose is matched to clinical indication); or iterative reconstruction. Contrast material: VISI 320; Contrast volume: 61.5 ml; Contrast route: INTRAVENOUS (IV); COMPARISON: CTA Chest-Pulmonary Emb [id number] 12/09/2016 12:13 AM RADIATION DOSE METRICS: Total DLP (mGy-cm): 593.91 FINDINGS: Pulmonary arteries: Normal. No pulmonary emboli. Aorta: Unremarkable. No aortic aneurysm. No aortic dissection. Lungs: Bilateral airspace opacities greatest in the mid to lower lung field suggestive of an infectious process. Pleural space: Unremarkable. No pneumothorax. No pleural effusion. Heart: Unremarkable. No cardiomegaly. No pericardial effusion. Lymph nodes: Unremarkable. No enlarged lymph nodes. Gallbladder and bile ducts: Cholecystectomy. Bones/joints: Unremarkable. No acute fracture. Soft tissues: Unremarkable. CT/CT angio chest PE protcl [id number] IMPRESSION: 1. Negative for pulmonary embolus. 2. Bilateral airspace opacities greatest in the mid to lower lung field suggestive of an infectious process. 3. Cholecystectomy. Radiation Dose CTDIVOL = (mGy): DLP = 593.91 (mGy-cm) Dictated By: Rome Tanner MD Signed By: Rome Tanner MD Signed Date/Time: 09/27/202144 DD/ 42 EKG Data^: EKG 1: Attestation: I personally reviewed and interpreted this EKG as follows: EKG Interpretation Date: 09/27/20 EKG interpretation time: 18:40 Interpretation: Normal sinus rhythm at 78 beats a minute, short AK interval, normal QTC, normal axis, T waves inverted in aVL otherwise no acute ST or T wave changes. Discharge Plan Discharge Patient Disposition: Home Clinical Impression: Pneumonia Qualifiers: Pneumonia type: due to unspecified organism Laterality: bilateral Lung location: lower lobe of lung Qualified Code(s): J18.9 - Pneumonia, unspecified organism Condition: Stable Prescriptions: New Zofran 4 mg tablet 4 mg PO Q6H PRN (Reason: nausea and vomiting) Qty: 20 RF: 0 Tessalon Perles 100 mg capsule 200 mg PO TID PRN (Reason: cough) Qty: 60 RF: 0 cefdinir 300 mg capsule 300 mg PO Q12H 10 Days Qty: 20 RF: 0 albuterol sulfate 90 mcg/actuation HFA aerosol inhaler 2 inh INHALATION Q4H PRN (Reason: shortness of breath or wheezing) Qty: 6.7 RF: 0 No Action lisinopril-hydrochlorothiazide 20-12.5 mg tablet 1 tab PO BID@, RF: 0 duloxetine [Cymbalta] 60 mg capsule,delayed release(DR/EC) 60 mg PO DAILY@ RF: 0 atorvastatin 40 mg tablet 40 mg PO DAILY@ RF: 0 duloxetine 30 mg capsule, delayed rel sprinkle 30 mg PO DAILY@ RF: 0 metformin 500 mg tablet 500 mg PO DAILY@ RF: 0 omeprazole 20 mg capsule,delayed release(DR/EC) 20 mg PO DAILY PRN (Reason: Acid Reflux) RF: 0 doxycycline hyclate 100 mg capsule 100 mg PO BID@, RF: 0 tizanidine 2 mg tablet 2 mg PO DAILY@21 PRN (Reason: Muscle Spasm) RF: 0 alprazolam 1 mg tablet 1 mg PO DAILY@ RF: 0 Aspir-81 81 mg Tablet,Delayed Release (Dr/Ec) 81 mg PO DAILY@ RF: 0 levothyroxine 25 mcg tablet 25 mcg PO DAILY@ RF: 0 metoprolol tartrate 50 mg tablet 50 mg PO DAILY@ RF: 0 rivastigmine tartrate 3 mg capsule See Rx Instructions .ROUTE .COMPLEX RF: 0 Discharge Orders: Discharge ED (Routine); Ordered 09/27/20 Ordered By: Mary Danielle Referrals: Meghan Holley FNP [Primary Care Provider] - 1-3 days Discharge Diet: Advance as tolerated Discharge Activity: Limit activity as instructed Patient Instructions: Pneumonia (ED) Activity Restrictions/Additional Instructions: Please return to the ER immediately for any of the signs or symptoms listed on your discharge instruction sheets, worsening/changing of your symptoms, you are not getting better as quickly as expected, or for ANY other cause or concerns. Return to the ER for difficulty breathing, vomiting, you are feeling worse at all, or for any other cause for concern. A second Covid test has been sent on you so keep yourself at home and quarantined until advised further by us. Take the antibiotics previously prescribed you in addition to the medicines I have prescribed. You have been offered admission for further evaluation and care but declined, if you change your mind or your symptoms worsen at all please return here immediately for recheck. 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
[2020-09-27] MEDS: acetaminophen 500 mg Tablet 1000 MG PO (19:12)
[2020-09-27] MEDS: cefTRIAXone 1,000 MG in sodium chloride 0.9% (plus) 50 ML 100 MG IV (19:13)
[2020-09-27] MEDS: albuterol 8 gm MDI 6 PUFF INHALATION (19:16)
[2020-09-27 19:17] VITALS: PULSE 80; RESP 18; O2SAT 90
[2020-09-27 19:23] VITALS: PULSE 89
[2020-09-27 19:48] LABS: Basophils # 0.1 10^3/uL (0.0-0.1); Basophils % 0.3 %; Eosinophils # 0.2 10^3/uL (0.0-0.8); Eosinophils % 0.7 %; Hematocrit 41.7 % (37.0-47.0); Hemoglobin 13.8 g/dL (11.5-15.3); Lymphocytes % 19.7 %; Mean Corpuscular HGB Conc 33.1 g/dL (30.0-36.0); Mean Corpuscular Hemoglobin 29.4 pg (28.0-34.0); Mean Corpuscular Volume 88.9 fL (81-99); Monocytes # 1.3 10^3/uL (0.2-0.9); Monocytes % 5.1 %; Neutrophils # 18.83 10^3/uL (1.8-7.7); Neutrophils % 73.3 %; Nucleated Red Blood Cells % 0 %; Platelet Count 307 10^3/cmm (130-400); Red Blood Count 4.69 10^6/uL (4.1-5.3); Red Cell Distribution Width 13.3 % (12.1-15.1); White Blood Count 25.6 10^3/uL (4.0-10.0)
[2020-09-27 19:50] LABS: INR 0.93 (0.8-1.2)
[2020-09-27 19:54] VITALS: BP 171/98; PULSE 76; RESP 25; TEMP 38.6; O2SAT 95
[2020-09-27 20:00] LABS: Troponin(5th) Baseline 18 ng/L (0-10)
[2020-09-27 20:05] LABS: Alanine Aminotransferase 23 U/L (0-33); Albumin Level 3.7 g/dL (3.5-5.2); Alkaline Phosphatase 59 IU/L (35-105); Blood Urea Nitrogen 23 mg/dL (8-23); Carbon Dioxide 27 mmol/L (22-29); Chloride 95 mmol/L (98-107); Creatinine Clr Calc Pharmacy 41.1258; Globulin 2.9 g/dL (1.3-4.6); Glomerular Filtration Rate 49.2 mL/min (90-130); Glucose 114 mg/dL (65-115); NT Pro B Type Natriuretic Pept 490 pg/mL (0-125); Osmolality Calculated 285 mOsm/kg (285-295); Sodium 135 mmol/L (136-145); Total Bilirubin 0.5 mg/dL (0.15-1.2); Total Protein 6.6 g/dL (6.6-8.7)
[2020-09-27 20:12] LABS: ABG PCO2 32.2 mmHg (35-45); ABG PH Result 7.55 (7.35-7.45); Arterial Blood Gas Hematocrit 42.9 % (37-47); Base Excess ABG 5.8 mmol/L (-2.0-2.0); Blood Gas Sample Type Arterial; HCO3 ABG 27.9 mmol/L (22-26); PO2 ABG 93.2 mmHg (80.0-100.0)
[2020-09-27 20:13] LABS: Blood Gas Operator Identificat HARKR; Blood Gas Sample Site Brachial, right; Oxygen Device NC
[2020-09-27 20:19] LABS: Anion Gap 18.1 (5-19); Aspartate Amino Transferase 23 U/L (0-32); Potassium 5.1 mmol/L (3.5-5.1)
[2020-09-27] MEDS: dexamethasone 4 mg/mL INJ 10 MG IVP (20:34)
[2020-09-27] MEDS: ondansetron 2 mg/ML SDV 2 mL 4 MG IVP (20:43)
--- NOTE | 2020-09-27 20:43 | CTR_ITS ---
PROCEDURE INFORMATION: Exam: CT Angiography Chest With Contrast Exam date and time: 09/27/2020 9:08 PM Age: 69 years old Clinical indication: Cough and dyspnea; Additional info: Dyspnea, positive d-dimer TECHNIQUE: Imaging protocol: Computed tomographic angiography of the chest with intravenous contrast. 3D rendering (Not supervised by radiologist): MIP and/or 3D reconstructed images were created by the technologist. Radiation optimization: All CT scans at this facility use at least one of these dose optimization techniques: automated exposure control; mA and/or kV adjustment per patient size (includes targeted exams where dose is matched to clinical indication); or iterative reconstruction. Contrast material: VISI 320; Contrast volume: 61.5 ml; Contrast route: INTRAVENOUS (IV); COMPARISON: CTA Chest-Pulmonary Emb [id number] 12/09/2016 12:13 AM RADIATION DOSE METRICS: Total DLP (mGy-cm): 593.91 FINDINGS: Pulmonary arteries: Normal. No pulmonary emboli. Aorta: Unremarkable. No aortic aneurysm. No aortic dissection. Lungs: Bilateral airspace opacities greatest in the mid to lower lung field suggestive of an infectious process. Pleural space: Unremarkable. No pneumothorax. No pleural effusion. Heart: Unremarkable. No cardiomegaly. No pericardial effusion. Lymph nodes: Unremarkable. No enlarged lymph nodes. Gallbladder and bile ducts: Cholecystectomy. Bones/joints: Unremarkable. No acute fracture. Soft tissues: Unremarkable. CT/CT angio chest PE protcl [id number] IMPRESSION: 1. Negative for pulmonary embolus. 2. Bilateral airspace opacities greatest in the mid to lower lung field suggestive of an infectious process. 3. Cholecystectomy. Radiation Dose CTDIVOL = (mGy): DLP = 593.91 (mGy-cm)
[2020-09-27 20:59] LABS: Influenza A by IFA Negative (Negative); Influenza B by IFA Negative (Negative)
[2020-09-27 21:00] LABS: SARS Covid-2 Antigen Negative (Negative)
[2020-09-27 21:53] VITALS: BP 98/66; PULSE 64; RESP 21; TEMP 37.6; O2SAT 93
[2020-09-27 22:15] LABS: Troponin 5 2HR 14.75 ng/L (0-10)
[2020-09-27 22:37] LABS: Troponin 5 2HR Delta -3.25 ABS# (0-10)
[2020-09-27 22:42] VITALS: PULSE 86; RESP 18; O2SAT 96
[2020-09-27] MEDS: albuterol 8 gm MDI 2 PUFF INHALATION (22:42)
[2020-09-28 17:12] LABS: Coronavirus Lab Test PTC Negative
--- NOTE | 2020-09-29 09:00 | PC.NURSE ---
Pt called and notified of negative COVID results.
== END 2020-09-27 22:50 | disposition home or self-care (01) ==
PROVIDERS: Emergency Medicine; Emergency Provider Emergency Medicine; PCP Nurse Practitioner Family
DX: J18.9 Pneumonia, unspecified organism (principal); Z79.82 Long term (current) use of aspirin; E11.9 Type 2 diabetes mellitus without complications; I10 Essential (primary) hypertension; E78.5 Hyperlipidemia, unspecified; F17.210 Nicotine dependence, cigarettes, uncomplicated
CPT/HCPCS: 12345; 36415; 36600; 71045; 71275; 80053; 82803; 83880; 84484; 85025; 85378; 85610; 87040; 87426; 87635; 87804; 93005; 94640; 96365; 96367; 96375; 99282; 99284; J0456; J0696; J1100; J2405; J3535

== ENCOUNTER 2021-05-03 08:19 | Outpatient (CLI) | payer MEDICARE, OTHER, SELFPAY ==
--- NOTE | 2021-05-03 08:29 | MM_ITS ---
WS: [id number] Bilateral screening digital mammogram, 05/03/2021 Clinical Data: SCREENING Comparison: 05/21/2018, 07/14/2014, 07/13/2013, 04/23/2012. 03/08/2008. Findings: The breast parenchymal pattern shows fibroglandular tissue No spiculated masses or clustered calcific ations are seen. There are no secondary signs of carcinoma. There is a mole marker on the left breast . There are lymph nodes in both axilla. MM/[place] [id number] Impression: 1. Negative bilateral mammogram unchanged. 2. Recommend annual screening mammograms. BIRADS: 1-Negative FOLLOW UP: 1 Year Follow-up The CAD checker product design was used.
== END 2021-05-03 08:20 | disposition home or self-care (01) ==
LOC: RADSHAW 08:23
PROVIDERS: PCP Nurse Practitioner Family; Visit Provider Nurse Practitioner Family
DX: Z12.31 Encounter for screening mammogram for malignant neoplasm of breast (principal)
CPT/HCPCS: 77067

== ENCOUNTER 2021-05-27 20:27 | Emergency (ER) | payer MEDICARE, OTHER, SELFPAY ==
[2021-05-27 20:35] VITALS: BP 132/64; PULSE 87; RESP 26; TEMP 37.9; O2SAT 94; BMI 28.5
[2021-05-27 20:37] VITALS: BP 129/85; PULSE 88; RESP 28; TEMP 38.4; O2SAT 93
[2021-05-27 21:07] VITALS: BP 127/80; PULSE 92; RESP 24; O2SAT 94
--- NOTE | 2021-05-27 21:08 | XRR_ITS ---
PROCEDURE INFORMATION: Exam: XR Chest Exam date and time: 05/27/2021 9:08 PM Age: 70 years old Clinical indication: Shortness of breath; Additional info: SOB TECHNIQUE: Imaging protocol: XR of the chest. Views: 1 view. COMPARISON: CR XR chest 2V* [id number] 04/16/2021 4:21 PM FINDINGS: Lungs: The lungs are hyperinflated, consistent with COPD. Mild fibrosis the left lung base. No consolidative pulmonary infiltrates are noted. Pleural spaces: No pleural effusion. No pneumothorax. Heart/Mediastinum: No cardiomegaly. Bones/joints: Postop changes of the cervical spine. Degenerative change of the thoracic spine. XR/XR chest 1V portable [id number] IMPRESSION: 1. The lungs are hyperinflated, consistent with COPD. 2. Mild fibrosis the left lung base. No consolidative pulmonary infiltrates are noted. 3. There is no interval change from the prior examination.
--- NOTE | 2021-05-27 21:08 | ECG_ITS ---
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 Measurements Intervals [place] Rate: 87 P: 75 RI: 168 QRS: 68 QRSD: 70 T: 66 QT: 336 QTc: 405 Interpretive Statements SINUS RHYTHM Compared to ECG 09/27/2020 18:40:15 Short RI interval no longer present Electronically Signed On 05-28-2021 23:55:04 CDT by Sheyla Ervin M.D. [id number] [email or web address]
[2021-05-27 21:30] LABS: ABG PCO2 36.2 mmHg (35-45); ABG PH Result 7.45 (7.35-7.45); Arterial Blood Gas Hematocrit 41.1 % (37-47); Base Excess ABG 1.5 mmol/L (-2.0-2.0); Blood Gas Allen Test Pos; Blood Gas Sample Site Radial, left; Blood Gas Sample Type Arterial; HCO3 ABG 25.2 mmol/L (22-26); Oxygen Device ROOM AIR; PO2 ABG 56.8 mmHg (80.0-100.0)
--- NOTE | 2021-05-27 21:36 | W.ED.COVID ---
HPI - COVID General: Chief Complaint: COVID symptoms Stated Complaint: cough/sob Time Seen by Provider: 05/27/21 20:40 Triage information: Has fever, cough or shortness of breath. Exposure to COVID + person last 14 days History of Present Illness: HPI Narrative: 70-year-old female with a history of pneumonia, and hypertension. She presents with sudden onset of shortness of breath, wheezing, and fever yesterday. Symptoms worsened today. She has taken some ibuprofen for headache and fever. She was vaccinated in November for COVID-19 Prior covid testing: no COVID 19 common symptoms: positive fever(s), chills, cough, non-productive cough, dyspnea, fatigue, headache(s), nasal congestion and nausea; negative vomiting or diarrhea COVID 19 other sytmptoms: positive chest pressure Onset (ago): hour(s) (24) Pertinent comorbid conditions: diabetes and hypertension COVID Results: SARS-CoV-2 Antigen (Rapid) Negative (Negative) 05/27/21 21:50 05/27/21 SARS-CoV-2 RNA (RT-PCR) Pending 05/27/21 21:50 05/27/21 Nasal/Oral Coronavirus 2019 PCR Negative 09/27/20 22:40 09/27/20 Review of Systems Const: Reports: fever(s), chills and fatigue ENMT: Reports: nasal congestion Resp: Reports: dyspnea and non-productive cough GI: Reports: nausea; Denies: vomiting or diarrhea Neuro: Reports: headache(s) PFS ED PFSH: Medical History (Updated 05/28/21 @ 00:50 by Jagdish Mcclain DO) Aftercare following surgery of the genitourinary system Anxiety Carotid arterial disease Chest pain DM type 2 (diabetes mellitus, type 2) GERD (gastroesophageal reflux disease) History of TIA (transient ischemic attack) HTN (hypertension) Hx of dizziness Hyperlipidemia Hypertension Hypothyroidism Palpitations Tobacco abuse Vaginal prolapse Surgical History H/O arthroscopic knee surgery H/O bladder repair surgery H/O section H/O neck surgery History of carpal tunnel surgery Hx of cholecystectomy Hx of hysterectomy, total Family History Daughter No problems noted. Brother Colon cancer, Onset Age: 64 Diabetes Hypertension Mother Diabetes Hypertension Stroke Denies family history of Clotting disorder Hyperlipidemia Anesthesia complication Bleeding disorder Social History Smoking and tobacco status: current every day smoker cigarettes Packs smoked per day: 0.5 Alcohol intake: never Lives independently: Yes Marital status: Physical Exam Const: GENERAL APPEARANCE: cooperative, well kempt and ill appearing ORIENTATION/CONSCIOUSNESS: Yes awake, Yes oriented to person, Yes oriented to place and Yes oriented to time HENMT: COMMON NORMALS: normocephalic HEAD & SCALP: normocephalic Eye: COMMON NORMALS: Equal, round and reactive pupils present and EOMs intact bilaterally PUPIL: Yes Equal, round and reactive pupils present Chest: COMMONS NORMALS: normal inspection of the chest Resp: EFFORT & INSPECTION: Yes tachypneic, Yes respiratory distress, Yes Actively coughing and Yes uses accessory muscles AUSCULTATION: wheezes Cardio: COMMON NORMALS: regular rate and regular rhythm RATE: regular rate RHYTHM: regular rhythm GI: COMMON NORMALS: Normal to inspection, nondistended, normoactive bowel sounds present, Soft to palpation and non-tender PALPATION: Yes Soft to palpation Neuro: SENSORIUM/ORIENTATION: Yes oriented to person, Yes oriented to place and Yes oriented to time Psych: APPEARANCE: Yes well kempt Course Vital Signs: Vital signs: Vital Signs Temperature 101.2 F H 05/27/21 20:37 Pulse Rate 88 05/27/21 20:37 Respiratory Rate 24 H 05/27/21 22:35 Blood Pressure 129/85 05/27/21 20:37 Pulse Oximetry 94 05/27/21 22:35 MDM - COVID MDM Narrative: Medical decision making narrative: 70-year-old female, presents in with fever shortness of breath and headache. She has had Covid vaccination. Her chest x-ray is clear. CTA shows no pulmonary embolism, infiltrate, or pneumonitis. There is mild fibrosis present. Her white blood cell count is 15 her BMP is normal. Her fever is now broken and she is feeling better. She has had dexamethasone here. She is not requiring oxygen. She is wheezing significantly. She was offered admission, but would prefer to go home. She has a nebulizer machine. She will be prescribed albuterol, given corticosteroids for the wheezing, and she will be covered with doxycycline for now. Her rapid antigen COVID-19 test was negative, her PCR is pending. She was counseled regarding returning for monoclonal antibody infusion should her PCR turn positive. She was also counseled extensively on returning should her symptoms worsen despite treatment. Lab Data: Labs: Lab Results 05/27/21 05/27/21 05/27/21 Range/Units 21:20 21:35 21:35 WBC 15.0 H (4.0-10.0) 10^3/ uL RBC 4.38 (4.1-5.3) 10^6/u L Hgb 13.3 (11.5-15.3) g/dL Hct 39.1 (37.0-47.0) % MCV 89.3 (81-99) fl MCH 30.4 (28.0-34.0) pg MCHC 34.0 (30.0-36.0) g/dL RDW 13.3 (12.1-15.1) % Plt Count 236 (130-400) 10^3/c mm MPV 10.0 (7.4-10.4) fL Neut % (Auto) 69.8 % Lymph % (Auto) 19.1 % [place] % (Auto) 8.3 % Eos % (Auto) 1.7 % Baso % (Auto) 0.9 % Neut # (Auto) 10.47 H (1.8-7.7) 10^3/u L Lymph # (Auto) 2.9 (0.8-4.8) 10^3/u L [place] # (Auto) 1.3 H (0.2-0.9) 10^3/u L Eos # (Auto) 0.3 (0.0-0.8) 10^3/u L Baso # (Auto) 0.1 (0.0-0.1) 10^3/u L Nucleated RBC % (a uto) 0 % Nucleated RBCs # 0.0 /100WBC D-Dimer 0.91 H (0-0.59) ug/mIFE U Specimen Type Arterial Sample Site Radial, left ABG pH 7.45 (7.35-7.45) ABG pCO2 36.2 (35-45) mmHg ABG pO2 56.8 L (80.0-100.0) mmH g ABG HCO3 25.2 (22-26) mmol/L ABG Base Excess 1.5 (-2.0-2.0) mmol/ L Ben Test Pos Hematocrit 41.1 (37-47) % O2 Delivery Device Room air Labor Economics Professor ID ellpe Sodium (136-145) mmol/L Potassium (3.5-5.1) mmol/L Chloride (98-107) mmol/L Carbon Dioxide (22-29) mmol/L Anion Gap (5-19) BUN (8-23) mg/dL Creatinine (0.5-0.9) mg/dL GFR Calculation (90-130) mL/min Glucose (65-115) mg/dL Calculated Osmolal ity (285-295) mOsm/k g Lactic Acid (0.5-2.2) mmol/L Calcium (8.5-10.5) mg/dL Total Bilirubin (0.15-1.2) mg/dL AST (0-32) U/L ALT (0-33) U/L Alkaline Phosphata se (35-105) IU/L Lactate Dehydrogen ase (135-214) U/L C-Reactive Protein (0.0-4.9) mg/L NT-Pro-B Natriuret Pep (0-125) pg/mL Total Protein (6.6-8.7) g/dL Albumin (3.5-5.2) g/dL Globulin (1.3-4.6) g/dL Procalcitonin (0-0.5) ng/mL SARS-CoV-2 Ag (Rap id) (Negative) 05/27/21 05/27/21 05/27/21 Range/Units 21:35 21:35 21:50 WBC (4.0-10.0) 10^3/ uL RBC (4.1-5.3) 10^6/u L Hgb (11.5-15.3) g/dL Hct (37.0-47.0) % MCV (81-99) fl MCH (28.0-34.0) pg MCHC (30.0-36.0) g/dL RDW (12.1-15.1) % Plt Count (130-400) 10^3/c mm MPV (7.4-10.4) fL Neut % (Auto) % Lymph % (Auto) % [place] % (Auto) % Eos % (Auto) % Baso % (Auto) % Neut # (Auto) (1.8-7.7) 10^3/u L Lymph # (Auto) (0.8-4.8) 10^3/u L [place] # (Auto) (0.2-0.9) 10^3/u L Eos # (Auto) (0.0-0.8) 10^3/u L Baso # (Auto) (0.0-0.1) 10^3/u L Nucleated RBC % (a uto) % Nucleated RBCs # /100WBC D-Dimer (0-0.59) ug/mIFE U Specimen Type Sample Site ABG pH (7.35-7.45) ABG pCO2 (35-45) mmHg ABG pO2 (80.0-100.0) mmH g ABG HCO3 (22-26) mmol/L ABG Base Excess (-2.0-2.0) mmol/ L Ben Test Hematocrit (37-47) % O2 Delivery Device Labor Economics Professor ID Sodium 139 (136-145) mmol/L Potassium 4.2 (3.5-5.1) mmol/L Chloride 103 (98-107) mmol/L Carbon Dioxide 24 (22-29) mmol/L Anion Gap 16.2 (5-19) BUN 17 (8-23) mg/dL Creatinine 0.8 (0.5-0.9) mg/dL GFR Calculation 70.9 L (90-130) mL/min Glucose 106 (65-115) mg/dL Calculated Osmolal ity 290 (285-295) mOsm/k g Lactic Acid 1.2 (0.5-2.2) mmol/L Calcium 9.4 (8.5-10.5) mg/dL Total Bilirubin 0.8 (0.15-1.2) mg/dL AST 18 (0-32) U/L ALT 13 (0-33) U/L Alkaline Phosphata se 57 (35-105) IU/L Lactate Dehydrogen ase 196 (135-214) U/L C-Reactive Protein 64.1 H (0.0-4.9) mg/L NT-Pro-B Natriuret Pep 250 H (0-125) pg/mL Total Protein 6.8 (6.6-8.7) g/dL Albumin 4.3 (3.5-5.2) g/dL Globulin 2.5 (1.3-4.6) g/dL Procalcitonin 0.08 (0-0.5) ng/mL SARS-CoV-2 Ag (Rap id) Negative (Negative) COVID Results: SARS-CoV-2 Antigen (Rapid) Negative (Negative) 05/27/21 21:50 05/27/21 SARS-CoV-2 RNA (RT-PCR) Pending 05/27/21 21:50 05/27/21 Nasal/Oral Coronavirus 2019 PCR Negative 09/27/20 22:40 09/27/20 Discharge Plan Discharge Patient Disposition: Home Clinical Impression: Bronchitis Condition: Stable Prescriptions: New albuterol sulfate 2.5 mg /3 mL (0.083 %) solution for nebulization 2.5 mg inhalation Q4H PRN (Reason: shortness of breath or wheezing) Qty: 90 RF: 0 doxycycline hyclate 100 mg capsule 100 mg PO BID 7 Days Qty: 14 RF: 0 prednisone 20 mg tablet 40 mg PO DAILY 5 Days Qty: 10 RF: 0 No Action lisinopril-hydrochlorothiazide 20-12.5 mg tablet 1 tab PO BID@, RF: 0 duloxetine [Cymbalta] 60 mg capsule,delayed release(DR/EC) 60 mg PO DAILY@ RF: 0 atorvastatin 40 mg tablet 40 mg PO DAILY@21 RF: 0 duloxetine 30 mg capsule, delayed rel sprinkle 30 mg PO DAILY@09 RF: 0 metformin 500 mg tablet 500 mg PO DAILY@ RF: 0 omeprazole 20 mg capsule,delayed release(DR/EC) 20 mg PO DAILY PRN (Reason: Acid Reflux) RF: 0 amlodipine 5 mg tablet 5 mg PO DAILY Qty: 90 RF: 3 tizanidine 2 mg tablet 2 mg PO DAILY@21 PRN (Reason: Muscle Spasm) RF: 0 alprazolam 1 mg tablet 1 mg PO DAILY@21 RF: 0 Aspir-81 81 mg Tablet,Delayed Release (Dr/Ec) 81 mg PO DAILY@09 RF: 0 levothyroxine 25 mcg tablet 25 mcg PO DAILY@09 RF: 0 metoprolol tartrate 50 mg tablet 50 mg PO DAILY@09 RF: 0 rivastigmine tartrate 3 mg capsule See Rx Instructions .ROUTE .COMPLEX RF: 0 albuterol sulfate 90 mcg/actuation HFA aerosol inhaler 2 inh INHALATION Q4H PRN (Reason: shortness of breath or wheezing) Qty: 6.7 RF: 0 Discharge Orders: Discharge ED (Routine); Ordered 05/28/21 Ordered By: Jagdish Mcclain Referrals: Meghan Holley FNP [Primary Care Provider] - 1-3 days Patient Instructions: Acute Bronchitis (ED) Activity Restrictions/Additional Instructions: Use albuterol every 4 hours scheduled for the next 36 hours, then as needed. Other medications as directed. Return for worsening shortness of breath, inability to control fever, vomiting liquids or medications, lethargy, any other concerning symptoms. You will get a call if your COVID-19 PCR test comes back positive. If it does, dial the hospital at [phone], ask for the Covid hotline, and a nurse will direct you as to how to get the monoclonal antibody infusion. Coding Level of Care Code ED Dental Scheduling Coordinator for Tanya Fwmarcie Exam Detailed
[2021-05-27] MEDS: ketorolac 30 mg/mL INJ 15 MG IVP (21:50)
[2021-05-27] MEDS: dexamethasone 4 mg/mL INJ 6 MG IVP (21:50)
[2021-05-27] MEDS: ondansetron 2 mg/ML SDV 2 mL 4 MG IVP (21:50)
[2021-05-27 22:00] VITALS: BP 137/80; PULSE 88; RESP 24; O2SAT 93
[2021-05-27 22:00] LABS: Basophils # 0.1 10^3/uL (0.0-0.1); Basophils % 0.9 %; Eosinophils # 0.3 10^3/uL (0.0-0.8); Eosinophils % 1.7 %; Hematocrit 39.1 % (37.0-47.0); Hemoglobin 13.3 g/dL (11.5-15.3); Lymphocytes # 2.9 10^3/uL (0.8-4.8); Lymphocytes % 19.1 %; Mean Corpuscular Hemoglobin 30.4 pg (28.0-34.0); Mean Corpuscular Volume 89.3 fl (81-99); Monocytes # 1.3 10^3/uL (0.2-0.9); Monocytes % 8.3 %; Neutrophils # 10.47 10^3/uL (1.8-7.7); Neutrophils % 69.8 %; Nucleated Red Blood Cells % 0 %; Platelet Count 236 10^3/cmm (130-400); Red Blood Count 4.38 10^6/uL (4.1-5.3); Red Cell Distribution Width 13.3 % (12.1-15.1)
[2021-05-27] MEDS: sodium chloride 0.9% 1,000 ML 150 ML IV (22:08)
[2021-05-27 22:18] LABS: D Dimer 0.91 ug/mIFEU (0-0.59)
[2021-05-27 22:20] LABS: Lactic Sepsis W/Reflex 1.2 mmol/L (0.5-2.2)
[2021-05-27 22:27] LABS: NT Pro B Type Natriuretic Pept 250 pg/mL (0-125); Procalcitonin 0.08 ng/mL (0-0.5)
[2021-05-27 22:35] VITALS: RESP 24; O2SAT 94
[2021-05-27 22:35] LABS: SARS Covid-2 Antigen Negative (Negative)
[2021-05-27] MEDS: morphine 4 mg/mL SDV 1 mL IVP (22:35)
[2021-05-27 22:38] LABS: Alanine Aminotransferase 13 U/L (0-33); Albumin Level 4.3 g/dL (3.5-5.2); Alkaline Phosphatase 57 IU/L (35-105); Anion Gap 16.2 (5-19); Aspartate Amino Transferase 18 U/L (0-32); Blood Urea Nitrogen 17 mg/dL (8-23); C Reactive Protein 64.1 mg/L (0.0-4.9); Calcium 9.4 mg/dL (8.5-10.5); Carbon Dioxide 24 mmol/L (22-29); Chloride 103 mmol/L (98-107); Creatinine Clr Calc Pharmacy 55.5639; Globulin 2.5 g/dL (1.3-4.6); Glomerular Filtration Rate 70.9 mL/min (90-130); Glucose 106 mg/dL (65-115); Lactate Dehydrogenase 196 U/L (135-214); Osmolality Calculated 290 mOsm/kg (285-295); Potassium 4.2 mmol/L (3.5-5.1); Sodium 139 mmol/L (136-145); Total Bilirubin 0.8 mg/dL (0.15-1.2); Total Protein 6.8 g/dL (6.6-8.7)
--- NOTE | 2021-05-27 23:07 | CTR_ITS ---
PROCEDURE INFORMATION: Exam: CTA Chest With Contrast Exam date and time: 05/27/2021 11:07 PM Age: 70 years old Clinical indication: Cough and fever and shortness of breath; Patient HX: C/O SOB, cough and fever; Additional info: Chest pain TECHNIQUE: Imaging protocol: Computed tomographic angiography of the chest with contrast. 3D rendering (Not supervised by radiologist): MIP and/or 3D reconstructed images were created by the technologist. Radiation optimization: All CT scans at this facility use at least one of these dose optimization techniques: automated exposure control; mA and/or kV adjustment per patient size (includes targeted exams where dose is matched to clinical indication); or iterative reconstruction. Contrast material: OMNI 350; Contrast volume: 73 ml; Contrast route: INTRAVENOUS (IV); COMPARISON: CT angio chest PE protcl [id number] 09/27/2020 9:17 PM RADIATION DOSE METRICS: Total DLP (mGy-cm): 600.44 FINDINGS: Pulmonary arteries: No pulmonary emboli. Aorta: Mild aortic atherosclerosis. No aortic aneurysm. No aortic dissection. Lungs: Mild fibrosis at the lung apices. No consolidative pulmonary infiltrate noted. Pleural spaces: No pleural effusion or pneumothorax noted. Heart: No cardiomegaly. No pericardial effusion. Lymph nodes: No enlarged lymph nodes. Bones/joints: No postop changes of the cervical spine. Degenerative thoracic spine changes are noted. No fracture or other acute osseous abnormality. Soft tissues: The soft tissues appear unremarkable. CT/CT angio chest PE protcl [id number] IMPRESSION: 1. Pulmonary arteries appear unremarkable. No evidence of pulmonary embolism. 2. No evidence of thoracic aortic aneurysm or dissection. 3. Mild fibrosis at the lung apices. No consolidative pulmonary infiltrate noted. Radiation Dose CTDIVOL = (mGy): DLP = 600.44 (mGy-cm)
[2021-05-27 23:30] VITALS: BP 124/77; PULSE 87; RESP 22; O2SAT 93
[2021-05-27] MEDS: iohexol 350 mg/mL 100 mL Btl IV (23:53)
[2021-05-28 00:45] VITALS: BP 121/70; PULSE 89; RESP 22; O2SAT 93
[2021-05-28 01:02] VITALS: PULSE 70; RESP 22; O2SAT 96
[2021-05-28] MEDS: doxycycline 100 mg Tablet PO (01:26)
[2021-05-28 01:40] VITALS: BP 119/88; PULSE 89; RESP 22; TEMP 37.2; O2SAT 93
[2021-05-29 19:42] LABS: Quest SARS-CoV-2 RNA NOT DETECTED (NOT DETECTED)
--- NOTE | 2021-05-30 09:22 | PC.NURSE ---
notified of negative covid results by message
== END 2021-05-28 01:40 | disposition home or self-care (01) ==
PROVIDERS: Emergency Provider Emergency Medicine; PCP Nurse Practitioner Family
DX: J40 Bronchitis, not specified as acute or chronic (principal); Z79.84 Long term (current) use of oral hypoglycemic drugs; Z79.82 Long term (current) use of aspirin; E11.9 Type 2 diabetes mellitus without complications; Z86.73 Personal history of transient ischemic attack (TIA), and cerebral infarction without residual deficits; I10 Essential (primary) hypertension; E78.5 Hyperlipidemia, unspecified; F17.210 Nicotine dependence, cigarettes, uncomplicated; Z20.822 Contact with and (suspected) exposure to COVID-19
CPT/HCPCS: 36600; 71045; 71275; 80053; 82803; 83605; 83615; 83880; 84145; 85025; 85378; 86140; 87040; 87426; 87635; 93005; 94640; 96361; 96374; 96375; 99284; J1100; J1885; J2270; J2405; J7030; J7611; Q9967

== ENCOUNTER 2021-09-09 17:08 | Emergency (ER) | payer MEDICARE, OTHER, SELFPAY ==
[2021-09-09 17:41] VITALS: BP 128/79; PULSE 79; RESP 16; TEMP 36.8; O2SAT 96; BMI 27.9
--- NOTE | 2021-09-09 17:52 | XRR_ITS ---
PROCEDURE INFORMATION: Exam: XR Left Knee Exam date and time: 09/09/2021 5:52 PM Age: 70 years old Clinical indication: Pain; Knee; Left TECHNIQUE: Imaging protocol: XR Left knee. Views: 3 views. COMPARISON: No relevant prior studies available. FINDINGS: Bones/joints: Negative for acute bony abnormality. Soft tissues: There is an ossific density in the suprapatellar bursa corresponding to normal variation XR/XR knee LT 3V* [id number] IMPRESSION: No acute left knee bone abnormality Radiation Dose CTDIVOL = (mGy): DLP = (mGy-cm)
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
[2021-09-09] MEDS: acetaminophen 500 mg Tablet PO (19:01)
[2021-09-09] MEDS: ibuprofen 200 mg Tablet 400 MG PO (19:01)
[2021-09-09 19:02] VITALS: BP 128/79; PULSE 79; RESP 16; TEMP 36.8; O2SAT 96
--- NOTE | 2021-09-10 11:03 | DCPLANNER ---
seaport planning manager had message to schedule a follow up appointment for patient with ortho. seaport planning manager called the ortho clinic, spoke with Micaela, gave clinic patients information. seaport planning manager was told that patients information would be printed and reviewed. Clinic will call patient with appointment information.
--- NOTE | 2021-09-12 11:29 | DCPLANNER ---
Patient has a follow up appointment scheduled for Friday, October 29, 2020 at 2:[address] Lara at ortho. Clinic will call patient with appointment information.
--- NOTE | 2021-10-30 08:42 | DCPLANNER ---
Patient had a follow up appointment scheduled for 10.29.[address] Lara at [facility] - patient did attend appointment.
== END 2021-09-09 19:02 | disposition home or self-care (01) ==
PROVIDERS: Emergency Provider Nurse Practitioner Family; PCP Nurse Practitioner Family
DX: M17.12 Unilateral primary osteoarthritis, left knee (principal); Z79.84 Long term (current) use of oral hypoglycemic drugs; Z79.82 Long term (current) use of aspirin; E11.9 Type 2 diabetes mellitus without complications; Z86.73 Personal history of transient ischemic attack (TIA), and cerebral infarction without residual deficits; I10 Essential (primary) hypertension; E78.5 Hyperlipidemia, unspecified; F17.210 Nicotine dependence, cigarettes, uncomplicated
CPT/HCPCS: 73562; 99283

== ENCOUNTER 2021-10-03 17:45 | Emergency (ER) | payer MEDICARE, OTHER, SELFPAY ==
[2021-10-03 18:28] VITALS: BP 148/72; PULSE 62; RESP 18; TEMP 37.1; O2SAT 99; BMI 27.6
--- NOTE | 2021-10-03 20:05 | CTR_ITS ---
PROCEDURE INFORMATION: Exam: CT Head Without Contrast Exam date and time: 10/03/2021 8:05 PM Age: 70 years old Clinical indication: Pain; Dizziness; Headache; Additional info: Dizziness and headache TECHNIQUE: Imaging protocol: Computed tomography of the head without contrast. Radiation optimization: All CT scans at this facility use at least one of these dose optimization techniques: automated exposure control; mA and/or kV adjustment per patient size (includes targeted exams where dose is matched to clinical indication); or iterative reconstruction. COMPARISON: 1. MR head wo con* [id number] 2020-09-11 08:06 2. MR head wo con* [id number] 2020-02-28 08:52 RADIATION DOSE METRICS: Total DLP (mGy-cm): 736.1 FINDINGS: Brain: Diffuse mild cerebral age related volume loss. Mild patchy low attenuation in the white matter compatible with mild chronic small vessel ischemic disease. No midline shift, mass, fluid collection, or evidence of hemorrhage. Cerebral ventricles: Ventricular enlargement proportional to volume loss. Paranasal sinuses: Visualized sinuses are unremarkable. No fluid levels. Mastoid air cells: Visualized mastoid air cells are well aerated. Bones/joints: Unremarkable. No acute fracture. Soft tissues: Unremarkable. CT/CT head wo con* [id number] IMPRESSION: Mild involutional changes, no acute intracranial abnormality.
--- NOTE | 2021-10-03 20:06 | ECG_ITS ---
[facility] Test Date: 2021-10-03 Pat Name: Janene Anne Department: Room: Gender: Female Platform Stapler: : 1950 Requested By: Jhonny Paul Order Number: [id number] Jani MD: Justin Patterson M.D. Measurements Intervals Lottie Rate: 60 P: 3 HI: 144 QRS: 52 QRSD: 85 T: 64 QT: 421 QTc: 422 Interpretive Statements SINUS RHYTHM LOW QRS VOLTAGE IN PRECORDIAL LEADS [QRS DEFLECTION < 1.0 mV IN CHEST LEADS] Compared to ECG 05/27/2021 20:45:17 Low QRS voltage now present Electronically Signed On 10-04-2021 8:45:34 SHIP KEEPER by Justin Patterson M.D. [id number]
--- NOTE | 2021-10-03 20:22 | ED_ITS ---
HPI - Dizziness General: Chief Complaint: Dizziness Stated Complaint: DIZZY SPELL THIS A.M. H/A Time Seen by Provider: 10/03/21 20:05 History of Present Illness: HPI Narrative: Patient is a 70-year-old female comes to the ED with sudden onset of strokelike symptoms earlier today. Patient says symptoms started at around 2:15 PM. Patient was at [employer] grocery store and pushing a cart when all of a sudden she felt nauseous, her hands started shaking and dizziness. Dizziness described more as feeling off balance versus any spinning sensation. She also felt some mental confusion and her tongue felt numb. Symptoms lasted for a couple hours and resolved while patient was here in the ED waiting room. After symptoms resolved she now is complaining of having a headache. Headache is located at the vertex of the head and she rates it about a 7 out of 10. Denies any palpitations, chest pain, shortness of breath, diaphoresis, nausea/vomiting, abdominal pain, bladder or bowel symptoms. Associated symptoms: Reports headache(s); Denies chest pain, chills, nausea, nasal congestion, palpitations or vomiting Associated neuro symptoms: Reports confusion (resolved); Deny numbness in extremities Review of Systems Const: Denies: fever(s), chills or fatigue Eyes: Denies: change in vision or eye discomfort ENMT: Denies: throat pain, odynophagia, nasal discharge or nasal congestion Card: Denies: chest pain, palpitations, edema, swelling of feet/ankles, dyspnea on exertion or orthopnea Resp: Denies: dyspnea, productive cough or non-productive cough GI: Denies: abdominal pain, nausea, vomiting, diarrhea, constipation or hematochezia : Denies: flank pain, dysuria or hematuria Musc: Denies: neck pain, back pain or extremity swelling Skin/Breast: Denies: rash or new lesions Neuro: Reports: headache(s), sensory changes (tongue numbness-resolved), dizziness (resolved) and confusion (resolved); Denies: numbness in extremities or weakness in extremities [facility] ED PFSH: Medical History Aftercare following surgery of the genitourinary system Anxiety Carotid arterial disease Chest pain DM type 2 (diabetes mellitus, type 2) GERD (gastroesophageal reflux disease) History of TIA (transient ischemic attack) HTN (hypertension) Hx of dizziness Hyperlipidemia Hypertension Hypothyroidism Palpitations Tobacco abuse Vaginal prolapse Surgical History H/O arthroscopic knee surgery H/O bladder repair surgery H/O section H/O neck surgery History of carpal tunnel surgery Hx of cholecystectomy Hx of hysterectomy, total Family History Daughter No problems noted. Brother Colon cancer, Onset Age: 64 Diabetes Hypertension Mother Diabetes Hypertension Stroke Denies family history of Clotting disorder Hyperlipidemia Anesthesia complication Bleeding disorder Social History Smoking and tobacco status: current every day smoker cigarettes Packs smoked per day: 0.5 Alcohol intake: never Lives independently: Yes Marital status: Physical Exam Const: COMMON NORMALS: no acute distress, patient oriented x3, healthy appearing and alert GENERAL APPEARANCE: cooperative and comfortable HENMT: COMMON NORMALS: normocephalic HEAD & SCALP: normocephalic MOUTH: Normal oral and palatal mucosa present THROAT: posterior oropharynx normal and uvula midline Neck/C-Spine: COMMON NORMALS: supple GENERAL: Yes normal visual inspection Resp: COMMON NORMALS: normal respiratory effort, No retractions, No use of accessory muscles and clear to auscultation bilaterally AUSCULTATION: clear to auscultation bilaterally Cardio: COMMON NORMALS: regular rate, regular rhythm, S1 normal heart sound present, S2 normal heart sound present, No gallops present (Cardio), No clicks present (Cardio), No murmurs present (Cardio) and Peripheral pulses 2+ throughout RATE: regular rate RHYTHM: regular rhythm HEART SOUNDS: S1 normal heart sound present and S2 normal heart sound present PERIPHERAL PULSES: Peripheral pulses 2+ throughout GI: COMMON NORMALS: Normal to inspection, nondistended, normoactive bowel sounds present, Soft to palpation, non-tender and no masses PALPATION: Yes Soft to palpation : COMMON NORMALS: Yes no CVA tenderness BLADDER/KIDNEY EXAM: Yes no CVA tenderness Back/Pelvis: COMMON NORMALS: no CVA tenderness Extremity: COMMON NORMALS: normal to inspection Neuro: COMMON NORMALS: patient oriented x3, CN's II-XII intact bilaterally, moves all extremities, no focal motor deficits and no sensory deficits noted SENSORIUM/ORIENTATION: Yes alert SENSORY EXAM: Yes extremities (intact) MOTOR EXAM: 5/5 motor strength present throughout Skin: GENERAL SKIN EXAM: dry skin Course Vital Signs: Vital signs: Vital Signs Temperature 98.7 F 10/03/21 18:28 Pulse Rate 64 10/03/21 22:37 Respiratory Rate 18 10/03/21 22:37 Blood Pressure 145/70 10/03/21 22:37 Pulse Oximetry 99 10/03/21 22:37 MDM - Dizziness MDM Narrative: Medical decision making narrative: Patient is a 70-year-old female comes to the ED after having an episode of dizziness, confusion and tongue numbness. Symptoms resolved while in the waiting room in the ED. She started developing a headache right after other symptoms resolved. Denies any chest pain, shortness of breath, diaphoresis. Vital stable. Exam is benign and no neuro deficits noted. Labs were unremarkable. CT of head showed no acute findings. CTA of neck and head showed no acute findings. EKG showed normal sinus rhythm, [address] segment elevation or depression seen. Patient was given a dose of Toradol while here in the ED and headache improved. She had no reoccurring symptoms while here in the ED. Patient diagnosed with a headache and dizziness discharged home. She was told to follow-up with her PCP in 7 to 10 days for reevaluation. Return to ED precautions given. Patient stood agree with plan. Lab Data: Attestation: I reviewed the patient's lab results. Labs: Lab Results 10/03/21 10/03/21 10/03/21 20:49 20:49 20:49 WBC 12.8 10^3/uL H 10 ^3/uL (4.0-10.0) RBC 5.02 10^6/uL 10^6 /uL (4.1-5.3) Hgb 15.3 g/dL g/dL (11.5-15.3) Hct 44.3 % % (37.0-47.0) MCV 88.2 fl fl (81-99) MCH 30.5 pg pg (28.0-34.0) MCHC 34.5 g/dL g/dL (30.0-36.0) RDW 13.3 % % (12.1-15.1) Plt Count 270 10^3/cmm 10^3 /cmm (130-400) MPV 10.2 fL fL (7.4-10.4) Neut % (Auto) 60.3 % % Lymph % (Auto) 30.1 % % Wood[place] % (Auto) 6.4 % % Eos % (Auto) 2.0 % % Baso % (Auto) 1.0 % % Neut # (Auto) 7.73 10^3/uL H 10 ^3/uL (1.8-7.7) Lymph # (Auto) 3.9 10^3/uL 10^3/ uL (0.8-4.8) Woodson # (Auto) 0.8 10^3/uL 10^3/ uL (0.2-0.9) Eos # (Auto) 0.3 10^3/uL 10^3/ uL (0.0-0.8) Baso # (Auto) 0.1 10^3/uL 10^3/ uL (0.0-0.1) Nucleated RBC % (a uto) 0 % % Nucleated RBCs # 0.0 /100WBC /100W BC Sodium 142 mmol/L mmol/L (136-145) Potassium 4.6 mmol/L mmol/L (3.5-5.1) Chloride 105 mmol/L mmol/L (98-107) Carbon Dioxide 22 mmol/L mmol/L (22-29) Anion Gap 19.6 H (5-19) BUN 13 mg/dL mg/dL (8-23) Creatinine 0.8 mg/dL mg/dL (0.5-0.9) GFR Calculation 70.9 mL/min L mL/ min (90-130) Glucose 94 mg/dL mg/dL (65-115) Calculated Osmolal ity 294 mOsm/kg mOsm/ kg (285-295) Calcium 9.7 mg/dL mg/dL (8.5-10.5) Total Bilirubin 0.5 mg/dL mg/dL (0.15-1.2) AST 24 U/L U/L (0-32) ALT 18 U/L U/L (0-33) Alkaline Phosphata se 56 IU/L IU/L (35-105) Troponin T Baselin e 9 ng/L ng/L (0-10) Troponin T 120 Min [place] Troponin T Total Protein 8.3 g/dL g/dL (6.6-8.7) Albumin 4.9 g/dL g/dL (3.5-5.2) Globulin 3.4 g/dL g/dL (1.3-4.6) 10/03/21 22:40 WBC RBC Hgb Hct MCV MCH MCHC RDW Plt Count MPV Neut % (Auto) Lymph % (Auto) Woodson % (Auto) Eos % (Auto) Baso % (Auto) Neut # (Auto) Lymph # (Auto) Woodson # (Auto) Eos # (Auto) Baso # (Auto) Nucleated RBC % (a uto) Nucleated RBCs # Sodium Potassium Chloride Carbon Dioxide Anion Gap BUN Creatinine GFR Calculation Glucose Calculated Osmolal ity Calcium Total Bilirubin AST ALT Alkaline Phosphata se Troponin T Baselin e Troponin T 120 Min [place] Cancelled Delta Troponin T Cancelled Total Protein Albumin Globulin Imaging Data^: CT Head: Attestation: I personally reviewed and interpreted this imaging study as follows: Radiologist's impression: [address] [address] [address] Scan Report Signed Patient: Janene Anne Unit #: [id number] : 1950 Age/Sex: 70 / F ADM Date: 10/03/21 Loc: ER Room/Bed: Attending Dr: Ordering Provider/Ordering MD: Jhonny Paul Date of Service: 10/03/21 Procedure(s): CT head wo con* [id number] Accession Number(s): [id number] Report Number: [id number] PROCEDURE INFORMATION: Exam: CT Head Without Contrast Exam date and time: 10/03/2021 8:05 PM Age: 70 years old Clinical indication: Pain; Dizziness; Headache; Additional info: Dizziness and headache TECHNIQUE: Imaging protocol: Computed tomography of the head without contrast. Radiation optimization: All CT scans at this facility use at least one of these dose optimization techniques: automated exposure control; mA and/or kV adjustment per patient size (includes targeted exams where dose is matched to clinical indication); or iterative reconstruction. COMPARISON: 1. MR head wo con* [id number] 2020-09-11 08:06 2. MR head wo con* [id number] 2020-02-28 08:52 RADIATION DOSE METRICS: Total DLP (mGy-cm): 736.1 FINDINGS: Brain: Diffuse mild cerebral age related volume loss. Mild patchy low attenuation in the white matter compatible with mild chronic small vessel ischemic disease. No midline shift, mass, fluid collection, or evidence of hemorrhage. Cerebral ventricles: Ventricular enlargement proportional to volume loss. Paranasal sinuses: Visualized sinuses are unremarkable. No fluid levels. Mastoid air cells: Visualized mastoid air cells are well aerated. Bones/joints: Unremarkable. No acute fracture. Soft tissues: Unremarkable. CT/CT head wo con* [id number] IMPRESSION: Mild involutional changes, no acute intracranial abnormality. Dictated By: Thai Alonzo MD Signed By: Thai Alonzo MD Signed Date/Time: 10/03/212151 DD/ [address]: Attestation: I personally reviewed and interpreted this imaging study as follows: Radiologist's impression: [address] [address] [address] Scan Report Signed Patient: Janene Anne Unit #: [id number] : 1950 Age/Sex: 70 / F ADM Date: 10/03/21 Loc: ER Room/Bed: Attending Dr: Ordering Provider/Ordering MD: Jhonny Paul Date of Service: 10/03/21 Procedure(s): CT angio headneck* [id number] Accession Number(s): [id number] Report Number: [id number] PROCEDURE INFORMATION: Exam: CT Angiography Head With Contrast, Arteriography Exam date and time: 10/03/2021 8:21 PM Age: 70 years old Clinical indication: Dizziness and giddiness and speech disturbance; Prior surgery; Surgery type: Cervical fusion; Patient HX: Patient had sudden onset of severe dizziness with shakiness and slurred speech earlier today. ; Additional info: Sudden onset of dizziness and headache TECHNIQUE: Imaging protocol: Computed tomography angiography of the head with contrast. Exam focused on the arteries. 3D rendering (Not supervised by radiologist): MIP and/or 3D reconstructed images were created by the technologist. Radiation optimization: All CT scans at this facility use at least one of these dose optimization techniques: automated exposure control; mA and/or kV adjustment per patient size (includes targeted exams where dose is matched to clinical indication); or iterative reconstruction. Contrast material: OMNI 350; Contrast volume: 95 ml; Contrast route: INTRAVENOUS (IV); COMPARISON: 1. MRA Head [id number] 2019-09-24 09:[address] head wo con* [id number] 2021-10-03 21:35 RADIATION DOSE METRICS: Total DLP (mGy-cm): 4148.41 FINDINGS: ANTERIOR CIRCULATION: Right internal carotid artery: Unremarkable. Intracranial segment is patent with no significant stenosis. No aneurysm. Right middle cerebral artery: Unremarkable. No occlusion or significant stenosis. No aneurysm. Right anterior cerebral artery: Unremarkable. No occlusion or significant stenosis. No aneurysm. Left internal carotid artery: Unremarkable. Intracranial segment is patent with no significant stenosis. No aneurysm. Left middle cerebral artery: Unremarkable. No occlusion or significant stenosis. No aneurysm. Left anterior cerebral artery: Unremarkable. No occlusion or significant stenosis. No aneurysm. POSTERIOR CIRCULATION: Right vertebral artery: Unremarkable. No occlusion or significant stenosis. No aneurysm. Left vertebral artery: Unremarkable. No occlusion or significant stenosis. No aneurysm. Basilar artery: Unremarkable. No occlusion or significant stenosis. No aneurysm. Right posterior cerebral artery: Unremarkable. No occlusion or significant stenosis. No aneurysm. Left posterior cerebral artery: Unremarkable. No occlusion or significant stenosis. No aneurysm. Veins: The visualized deep and superficial dural venous sinuses and cortical veins are patent. Brain: No definite mass, mass effect, or midline shift. Cerebral ventricles: No ventriculomegaly. Bones/joints: Unremarkable. No acute fracture. Soft tissues: Unremarkable. PROCEDURE INFORMATION: Exam: CT Angiography Neck With Contrast Exam date and time: 10/03/2021 8:21 PM Age: 70 years old Clinical indication: Dizziness and giddiness and speech disturbance; Prior surgery; Surgery type: Cervical fusion; Patient HX: Patient had sudden onset of severe dizziness with shakiness and slurred speech earlier today. ; Additional info: Sudden onset of dizziness and headache TECHNIQUE: Imaging protocol: Computed tomography angiography of the neck with contrast. 3D rendering (Not supervised by radiologist): MIP and/or 3D reconstructed images were created by the technologist. Radiation optimization: All CT scans at this facility use at least one of these dose optimization techniques: automated exposure control; mA and/or kV adjustment per patient size (includes targeted exams where dose is matched to clinical indication); or iterative reconstruction. Contrast material: OMNI 350; Contrast volume: 95 ml; Contrast route: INTRAVENOUS (IV); COMPARISON: 1. MRA Head [id number] 2019-09-24 09:[address] head wo con* [id number] 2021-10-03 21:35 RADIATION DOSE METRICS: Total DLP (mGy-cm): 4148.41 FINDINGS: Right common carotid artery: No stenosis. No dissection or occlusion. Right internal carotid artery: No stenosis of the extracranial segment. No dissection or occlusion. Right external carotid artery: No occlusion or stenosis of the origin. Left common carotid artery: Mild atherosclerotic plaque in the predominately distal left common carotid artery and the bifurcation. Left internal carotid artery: Mild atherosclerotic plaque in the proximal left internal carotid artery and carotid bulb with less than 50% stenosis by NASCET criteria. Left external carotid artery: Mild atherosclerotic plaque at the left external carotid artery origin. Right vertebral artery: No stenosis. No dissection or occlusion. Left vertebral artery: No stenosis. No dissection or occlusion. Left subclavian artery: Mild left subclavian artery origin stenosis. Soft tissues: Normal. No significant soft tissue swelling. Bones/joints: Cervical spinal fusion. CT/CT angio headneck* [id number] IMPRESSION: No large vessel stenosis or occlusion. IMPRESSION: Mild proximal left ICA stenosis. REFERENCES: NASCET CRITERIA. The degree of internal carotid artery stenosis is based on NASCET criteria. Normal is no stenosis. Mild is less than 50% stenosis. Moderate is 50-69% stenosis. Severe is 70% to 99% stenosis. Total occlusion is no detectable patent lumen. Dictated By: Thai Alonzo MD Signed By: Thai Alonzo MD Signed Date/Time: 10/03/212199 DD/ 20 EKG Data^: EKG 1: Attestation: I personally reviewed and interpreted this EKG as follows: EKG interpretation date: 10/03/21 Interpretation: Sinus rhythm, 60 bpm, no ST segment elevation or depression seen. EKG 2: Attestation: I personally reviewed and interpreted this EKG as follows: EKG interpretation date: 10/03/21 Interpretation: Sinus rhythm, 63 bpm, no ST segment elevation or depression seen. Discharge Plan Discharge Patient Disposition: Home Clinical Impression: Dizziness Headache Qualifiers: Headache type: unspecified Headache chronicity pattern: acute headache Intracta bility: not intractable Qualified Code(s): R51.9 - Headache, unspecified Condition: Stable Prescriptions: No Action lisinopril-hydrochlorothiazide 20-12.5 mg tablet 1 tab PO BID@,21 RF: 0 duloxetine [Cymbalta] 60 mg capsule,delayed release(DR/EC) 60 mg PO DAILY@09 RF: 0 atorvastatin 40 mg tablet 40 mg PO DAILY@21 RF: 0 duloxetine 30 mg capsule, delayed rel sprinkle 30 mg PO DAILY@09 RF: 0 metformin 500 mg tablet 500 mg PO DAILY@09 RF: 0 omeprazole 20 mg capsule,delayed release(DR/EC) 20 mg PO DAILY PRN (Reason: Acid Reflux) RF: 0 amlodipine 5 mg tablet 5 mg PO DAILY Qty: 90 RF: 3 tizanidine 2 mg tablet 2 mg PO DAILY@21 PRN (Reason: Muscle Spasm) RF: 0 alprazolam 1 mg tablet 1 mg PO DAILY@21 RF: 0 Aspir-81 81 mg Tablet,Delayed Release (Dr/Ec) 81 mg PO DAILY@09 RF: 0 levothyroxine 25 mcg tablet 25 mcg PO DAILY@ RF: 0 metoprolol tartrate 50 mg tablet 50 mg PO DAILY@09 RF: 0 rivastigmine tartrate 3 mg capsule See Rx Instructions .ROUTE .COMPLEX RF: 0 albuterol sulfate 90 mcg/actuation HFA aerosol inhaler 2 inh INHALATION Q4H PRN (Reason: shortness of breath or wheezing) Qty: 6.7 RF: 0 albuterol sulfate 2.5 mg /3 mL (0.083 %) solution for nebulization 2.5 mg inhalation Q4H PRN (Reason: shortness of breath or wheezing) Qty: 90 RF: 0 diclofenac sodium 50 mg tablet,delayed release (DR/EC) 50 mg PO BID Qty: 14 RF: 0 Discharge Orders: Discharge ED (Routine); Ordered 10/03/21 Ordered By: Jhonny Paul Referrals: Meghan Holley FNP [Primary Care Provider] - Discharge Diet: Regular Discharge Activity: Increase activity as tolerated Patient Instructions: Acute Headache (ED), Dizziness (ED) Activity Restrictions/Additional Instructions: Follow-up with medical provider as directed in 7 to 10 days reevaluation. Continue taking home medications as previously prescribed. Return to the ER or your medical provider if condition worsens. Please read and understand discharge instructions. Thank you for choosing [facility] for your healthcare needs today. Please realize this is an emergency room and that we are providing you with a medical screening exam and this may not be complete and all inclusive of all the testing and or work up that you may need to determine your ailment or severity of your illness. It is very important that you follow up as instructed or that you return to the Emergency Department should you have concerns or if your condition changes or worsens in any way. Stand Alone Forms: Work/School Release Coding Level of Care Code ED Marketing Strategy Lead for Tanya Thompson Exam Comprehensive
[2021-10-03 21:14] LABS: Basophils # 0.1 10^3/uL (0.0-0.1); Eosinophils # 0.3 10^3/uL (0.0-0.8); Hematocrit 44.3 % (37.0-47.0); Hemoglobin 15.3 g/dL (11.5-15.3); Lymphocytes # 3.9 10^3/uL (0.8-4.8); Lymphocytes % 30.1 %; Mean Corpuscular HGB Conc 34.5 g/dL (30.0-36.0); Mean Corpuscular Hemoglobin 30.5 pg (28.0-34.0); Mean Corpuscular Volume 88.2 fl (81-99); Mean Platelet Volume 10.2 fL (7.4-10.4); Monocytes # 0.8 10^3/uL (0.2-0.9); Monocytes % 6.4 %; Neutrophils # 7.73 10^3/uL (1.8-7.7); Neutrophils % 60.3 %; Nucleated Red Blood Cells % 0 %; Platelet Count 270 10^3/cmm (130-400); Red Blood Count 5.02 10^6/uL (4.1-5.3); Red Cell Distribution Width 13.3 % (12.1-15.1); White Blood Count 12.8 10^3/uL (4.0-10.0)
[2021-10-03 21:24] LABS: Alanine Aminotransferase 18 U/L (0-33); Albumin Level 4.9 g/dL (3.5-5.2); Alkaline Phosphatase 56 IU/L (35-105); Aspartate Amino Transferase 24 U/L (0-32); Blood Urea Nitrogen 13 mg/dL (8-23); Calcium 9.7 mg/dL (8.5-10.5); Carbon Dioxide 22 mmol/L (22-29); Chloride 105 mmol/L (98-107); Globulin 3.4 g/dL (1.3-4.6); Glomerular Filtration Rate 70.9 mL/min (90-130); Glucose 94 mg/dL (65-115); Osmolality Calculated 294 mOsm/kg (285-295); Sodium 142 mmol/L (136-145); Total Bilirubin 0.5 mg/dL (0.15-1.2); Total Protein 8.3 g/dL (6.6-8.7)
[2021-10-03 21:26] LABS: Anion Gap 19.6 (5-19); Potassium 4.6 mmol/L (3.5-5.1)
[2021-10-03 21:28] LABS: Troponin(5th) Baseline 9 ng/L (0-10)
[2021-10-03] MEDS: iohexol 350 mg/mL 100 mL Btl IV (21:36)
--- NOTE | 2021-10-03 22:06 | ECG_ITS ---
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 Measurements Intervals [place] Rate: 63 P: 10 WA: 144 QRS: 62 QRSD: 77 T: 64 QT: 415 QTc: 426 Interpretive Statements SINUS RHYTHM LOW QRS VOLTAGE IN PRECORDIAL LEADS [QRS DEFLECTION < 1.0 mV IN CHEST LEADS] Compared to ECG 10/03/2021 21:00:24 No significant changes Electronically Signed On 10-04-2021 8:54:33 PATTERN HANGER by Justin Patterson M.D. [id number]
[2021-10-03] MEDS: ketorolac 30 mg/mL INJ IVP (22:07)
[2021-10-03 22:37] VITALS: BP 145/70; PULSE 64; RESP 18; O2SAT 99
== END 2021-10-03 22:40 | disposition home or self-care (01) ==
PROVIDERS: Emergency Provider Physician Assistant; PCP Nurse Practitioner Family
DX: R51.9 Headache, unspecified (principal); R42 Dizziness and giddiness; Z79.84 Long term (current) use of oral hypoglycemic drugs; Z79.82 Long term (current) use of aspirin; E11.9 Type 2 diabetes mellitus without complications; Z86.73 Personal history of transient ischemic attack (TIA), and cerebral infarction without residual deficits; I10 Essential (primary) hypertension; E78.5 Hyperlipidemia, unspecified; F17.210 Nicotine dependence, cigarettes, uncomplicated
CPT/HCPCS: 70450; 70496; 70498; 80053; 84484; 85025; 93005; 96374; 99283; J1885; Q9967

== ENCOUNTER → 2021-10-29 14:18 | Outpatient (BNVA) | payer MEDICARE, OTHER, SELFPAY | PROVIDERS: PCP Nurse Practitioner Family; Referring Provider Nurse Practitioner Family; Visit Provider Specialist | DX: M17.12 Unilateral primary osteoarthritis, left knee (principal) | CPT/HCPCS: 73560; 73565 ==

== ENCOUNTER → 2022-05-28 07:57 | Outpatient (BNVA) | payer MEDICARE, OTHER, SELFPAY | PROVIDERS: PCP Nurse Practitioner Family; Referring Provider Nurse Practitioner Family; Visit Provider Student in an Organized Health Care Education/Training Program | DX: M65.311 Trigger thumb, right thumb (principal); M79.644 Pain in right finger(s); M79.641 Pain in right hand | CPT/HCPCS: 20600; 73130; 99203; J3301; J3490 ==

== ENCOUNTER 2022-07-08 13:04 | Outpatient (CLI) | payer MEDICARE, OTHER, SELFPAY ==
--- NOTE | 2022-07-08 13:10 | CT_ITS ---
WS: [id number] CT ABDOMEN WITHOUT CONTRAST HISTORY: PERIUMBILICAL ABDOMINAL PAIN Contiguous single phase 5 mm axial imaging performed through the abdomen. Oral contrast has been prov ided. Coronal and sagittal reformats are submitted. All CT scans at [facility] use at least o ne of these dose optimization techniques: automated exposure control; mA and/or kV adjustment per pat ient size (includes targeted exams where dose is matched to clinical indication); or iterative recons truction. CONTRAST: None DLP: 643.90 mGy.cm COMPARISON: 06/09/2019 Lower thorax: Unremarkable. Liver: Normal. No intrahepatic dilatation. Gallbladder: Prior cholecystectomy. Pancreas: Normal. Spleen: Normal. Adrenals: Normal. Right kidney: Normal. Left kidney: Normal. Aorta: Atherosclerosis aorta. No aneurysm. GI tract: Stomach is well distended with oral contrast. No proximal small bowel obstruction. The colo n within the upper abdomen is normal. No adenopathy or free fluid. Abdominal wall: There may be a very tiny supraumbilical hernia measuring 4 mm containing fat only. No large supraumbilical hernia. Visualized osseous structures: Unremarkable. CT/CT abdomen wo con [id number] IMPRESSION: 1. Very tiny, 4 mm supraumbilical fat-containing hernia. 2. Atherosclerosis aorta. 3. Prior cholecystectomy.
[2022-07-08] MEDS: iohexol 350 mg/mL 100 mL Btl PO (14:21)
== END 2022-07-08 13:05 | disposition home or self-care (01) ==
LOC: RAD 13:05
PROVIDERS: PCP Nurse Practitioner Family; Visit Provider Nurse Practitioner Family
DX: R10.33 Periumbilical pain (principal); I70.0 Atherosclerosis of aorta; Z90.49 Acquired absence of other specified parts of digestive tract; K43.9 Ventral hernia without obstruction or gangrene
CPT/HCPCS: 74150

== ENCOUNTER 2022-12-16 20:51 | Inpatient (IN) | payer MEDICARE, OTHER, SELFPAY ==
[2022-12-16 20:55] VITALS: BP 154/80; PULSE 102; RESP 24; TEMP 37.5; O2SAT 92; BMI 27.9
[2022-12-16 20:58] VITALS: BP 147/68; PULSE 20; RESP 22; O2SAT 98
--- NOTE | 2022-12-16 20:58 | ECG_ITS ---
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 Measurements Intervals [place] Rate: 84 P: 31 PA: 145 QRS: 42 QRSD: 80 T: 35 QT: 351 QTc: 416 Interpretive Statements SINUS RHYTHM LOW QRS VOLTAGE IN EXTREMITY LEADS [QRS DEFLECTION < 0.5 mV IN LIMB LEADS] Compared to ECG 12/17/2022 01:46:50 No significant changes Electronically Signed On 12-17-2022 18:16:26 SET UP MOLD TECHNICIAN by Golden Kruger M.D. [id number]
--- NOTE | 2022-12-16 21:22 | XRR_ITS ---
PROCEDURE INFORMATION: Exam: XR Chest Exam date and time: 12/16/2022 9:29 PM Age: 71 years old Clinical indication: Shortness of breath; Additional info: SOB TECHNIQUE: Imaging protocol: Radiologic exam of the chest. Views: 1 view. COMPARISON: CR XR chest 1V portable [id number] 05/27/2021 9:11 PM FINDINGS: Lungs: Stable mild scarring left lung base. No consolidation. Pleural spaces: Unremarkable. No pleural effusion. No pneumothorax. Heart/Mediastinum: Unremarkable. No cardiomegaly. Bones/joints: Stable postsurgical changes in the cervical spine. XR/XR chest 1V portable [id number] IMPRESSION: No acute findings.
--- NOTE | 2022-12-16 21:37 | W.ED.SOB ---
HPI - SOB/Dyspnea General: Chief Complaint: Shortness of Breath/Dyspnea Stated Complaint: SOB Time Seen by Provider: 12/16/22 21:25 History of Present Illness: HPI Narrative: Ms. Anne is a 71-year-old lady with history of COPD no baseline oxygen requirement presenting to the emergency department for respiratory symptoms. She reports symptoms have mildly been worsening for a few days however markedly worsening over the past 2 days. She has dyspnea on exertion as well as low oxygen saturations at home. She notes cough which is productive with green sputum. She has had fevers and chills today. She endorses generalized malaise. No other specific changes in health, exacerbating, or alleviating factors identified. Onset (ago): day(s) Context: other Timing: progressively worsening Severity: severe Exacerbating factors: exertion and coughing Relieving factors: nothing Known history of: COPD Associated symptoms: Reports chest congestion and cough Review of Systems General: Reports: 10 or more systems reviewed and unremarkable except in HPI and below Resp: Reports: chest congestion PFS ED PFSH: Medical History (Updated 12/20/22 @ 00:00 by DIANA Eng) Aftercare following surgery of the genitourinary system Anxiety Carotid arterial disease Chest pain DM type 2 (diabetes mellitus, type 2) GERD (gastroesophageal reflux disease) History of TIA (transient ischemic attack) HTN (hypertension) Hx of dizziness Hyperlipidemia Hypertension Hypothyroidism Mild cognitive impairment with memory loss Palpitations Small vessel disease, cerebrovascular Tobacco abuse Trigger thumb, right thumb Urinary retention with incomplete bladder emptying Vaginal prolapse Surgical History (Updated 12/17/22 @ 13:10 by Audelia Joy MD) H/O arthroscopic knee surgery H/O bladder repair surgery H/O section H/O neck surgery History of carpal tunnel surgery Hx of cholecystectomy Hx of hysterectomy, total S/P bladder repair single incision midurethral sling performed on 04/19/[address] Alva at [facility] Family History Daughter No problems noted. Brother Colon cancer, Onset Age: 64 Diabetes Hypertension Mother Diabetes Hypertension Stroke Denies family history of Clotting disorder Hyperlipidemia Anesthesia complication Bleeding disorder Social History Smoking and tobacco status: current every day smoker cigarettes Packs smoked per day: 0.5 Alcohol intake: never Lives independently: Yes Marital status: Physical Exam Const: COMMON NORMALS: alert GENERAL APPEARANCE: cooperative and well developed HENMT: COMMON NORMALS: normocephalic and atraumatic HEAD & SCALP: normocephalic and atraumatic Eye: COMMON NORMALS: conjunctivae normal CONJUNCTIVA: Yes conjunctivae normal SCLERA: sclerae normal Neck/C-Spine: COMMON NORMALS: supple GENERAL: Yes trachea midline Resp: EFFORT & INSPECTION: Yes tachypneic and Yes labored AUSCULTATION: diminished lung sounds Cardio: COMMON NORMALS: regular rate and regular rhythm RATE: regular rate RHYTHM: regular rhythm GI: COMMON NORMALS: Soft to palpation PALPATION: Yes Soft to palpation and No Tenderness to palpation present (GI) Extremity: GENERAL: Yes normal exam except as noted and No edema Neuro: COMMON NORMALS: moves all extremities SENSORIUM/ORIENTATION: Yes alert and No Orientation impaired Psych: COMMON NORMALS: mental status grossly normal and Normal thought process present THOUGHT PROCESS: Normal thought process present Course Vital Signs: Vital signs: Vital Signs Temperature 98.1 F 12/19/22 12:00 Pulse Rate 68 12/19/22 12:00 Respiratory Rate 17 12/19/22 12:00 Blood Pressure 128/74 12/19/22 12:00 Pulse Oximetry 95 12/19/22 12:00 Oxygen Delivery Me thod 12/19/22 07:48 Oxygen Flow Rate 2 12/19/22 11:43 Fraction of Inspir ed Oxygen 2 12/19/22 07:48 MDM - SOB/Dyspnea Medical Decision Making 72-year-old lady with history of COPD presenting with worsening respiratory symptoms including new oxygen requirement. Exam as above EKG notable for sinus tachycardia, normal axis and intervals, no STEMI. Labs notable for leukocytosis without other significant hematologic abnormality. Metabolic panel with mild elevation in creatinine. ABG with respiratory alkalosis, TSH elevated with normal free T4. Rapid COVID and flu negative. Chest x-ray with no lobar consolidation or pneumothorax. During ED course patient treated with albuterol, steroids, repeat albuterol, antibiotic coverage for COPD exacerbation and despite this with mild improvement still requiring oxygen which is new. Most likely etiology of patient's symptoms is COPD exacerbation with hypoxia. The results of ED evaluation were discussed with the patient including plan for admission due to requirement for level of care not available if discharged to prevent significant worsening/deterioration. Patient agreeable with plan. Discussed with hospitalist service who was agreeable to admit patient. Medical Records I reviewed the patient's medical records. Lab Data I reviewed the patient's lab results. 12/19/22 04:17 12/19/22 04:17 Labs/Radiology: Radiology Impressions Chest X-Ray 12/16/22 21:22 IMPRESSION: No acute findings. Chest CT 12/17/22 10:19 IMPRESSION: No acute chest findings Laboratory Results WBC 15.0 10^3/uL (4.0-10.0) H 12/16/22 21:30 RBC 4.98 10^6/uL (4.1-5.3) 12/16/22 21:30 Hgb 14.9 g/dL (11.5-15.3) 12/16/22 21:30 Hct 45.0 % (37.0-47.0) 12/16/22 21:30 MCV 90.4 fl (81-99) 12/16/22 21:30 MCH 29.9 pg (28.0-34.0) 12/16/22 21:30 MCHC 33.1 g/dL (30.0-36.0) 12/16/22 21:30 RDW 14.0 % (12.1-15.1) 12/16/22 21:30 Plt Count 306 10^3/cmm (130-400) 12/16/22 21:30 MPV 10.3 fL (7.4-10.4) 12/16/22 21:30 Neut % (Auto) 63.9 % 12/16/22 21:30 Lymph % (Auto) 24.8 % 12/16/22 21:30 [place] % (Auto) 9.5 % 12/16/22 21:30 Eos % (Auto) 0.6 % 12/16/22 21:30 Baso % (Auto) 0.7 % 12/16/22 21:30 Neut # (Auto) 9.59 10^3/uL (1.8-7.7) H 12/16/22 21:30 Lymph # (Auto) 3.7 10^3/uL (0.8-4.8) 12/16/22 21:30 [place] # (Auto) 1.4 10^3/uL (0.2-0.9) H 12/16/22 21:30 Eos # (Auto) 0.1 10^3/uL (0.0-0.8) 12/16/22 21:30 Baso # (Auto) 0.1 10^3/uL (0.0-0.1) 12/16/22 21:30 Nucleated RBC % (auto) 0 % 12/16/22 21:30 Nucleated RBCs # 0.0 /100WBC 12/16/22 21:30 D-Dimer 0.77 ug/mIFEU (0-0.59) H 12/16/22 21:30 Specimen Type Arterial 12/16/22 23:46 Sample Site Radial, right 12/16/22 23:46 ABG pH 7.47 (7.35-7.45) H 12/16/22 23:46 ABG pCO2 34.1 mmHg (35-45) L 12/16/22 23:46 ABG pO2 80.3 mmHg (80.0-100.0) 12/16/22 23:46 ABG HCO3 24.9 mmol/L (22-26) 12/16/22 23:46 ABG Base Excess 1.8 mmol/L (-2.0-2.0) 12/16/22 23:46 Ben Test Pos 12/16/22 23:46 Hematocrit 44.4 % (37-47) 12/16/22 23:46 O2 Delivery Device Nc 12/16/22 23:46 O2 Liters/Min 5.0 % 12/16/22 23:46 Assisted Living Nursing Director ID [email or web address] 12/16/22 23:46 Sodium 139 mmol/L (136-145) 12/16/22 21:30 Potassium 4.2 mmol/L (3.5-5.1) 12/16/22 21:30 Chloride 99 mmol/L (98-107) 12/16/22 21:30 Carbon Dioxide 26 mmol/L (22-29) 12/16/22 21:30 Anion Gap 18.2 (5-19) 12/16/22 21:30 BUN 24 mg/dL (8-23) H 12/16/22 21:30 Creatinine 1.2 mg/dL (0.5-0.9) H 12/16/22 21:30 GFR Calculation Not Reportable 12/16/22 21:30 Glucose 135 mg/dL (65-115) H 12/16/22 21:30 Calculated Osmolality 294 mOsm/kg (285-295) 12/16/22 21:30 Calcium 9.9 mg/dL (8.5-10.5) 12/16/22 21:30 Iron 18 ug/dL (37-145) L 12/16/22 21:30 TIBC 285 mcg/dl 12/16/22 21:30 % Saturation 6.3 % (20-50) L 12/16/22 21:30 Unsat Iron Binding 267 ug/dL (112-347) 12/16/22 21:30 Total Bilirubin 0.2 mg/dL (0.15-1.2) 12/16/22 21:30 AST 30 U/L (0-32) 12/16/22 21:30 ALT 31 U/L (0-33) 12/16/22 21:30 Alkaline Phosphatase 54 U/L (35-105) 12/16/22 21:30 Troponin T Gen 5 ng/L 14 ng/L (0-10) H 12/16/22 21:30 NT-Pro-B Natriuret Pep 191 pg/mL (0-125) H 12/16/22 21:30 Total Protein 7.5 g/dL (6.6-8.7) 12/16/22 21:30 Albumin 4.3 g/dL (3.5-5.2) 12/16/22 21:30 Globulin 3.2 g/dL (1.3-4.6) 12/16/22 21:30 Vitamin B12 485 pg/mL (232-1245) 12/16/22 21:30 Procalcitonin 0.15 ng/mL (0-0.5) 12/16/22 21:30 TSH 5.81 uIU/mL (0.27-4.20) H 12/16/22 21:30 Free T4 0.99 ng/dL (0.82-1.77) 12/16/22 21:30 Free T3 3.0 PG/ML (2.0-4.4) 12/16/22 21:30 Influenza Type A Ag negative (Negative) 12/16/22 22:15 Influenza Type B Ag negative (Negative) 03/06/23 22:15 SARS-CoV-2 Ag (Rapid) negative (Negative) 12/16/22 22:15 Discharge Plan Discharge Patient Disposition: Admitted As Inpatient Admit Provider: Audelia Joy Clinical Impression: Acute exacerbation of chronic obstructive airways disease Condition: Stable Discharge Diet: Regular Discharge Activity: Resume usual activity and Increase activity as tolerated Coding Level of Care Code ED Seat Installer for Tanya Thompson
[2022-12-16] MEDS: ipratropium-albuterol 3 mL Neb INHALATION (21:51)
[2022-12-16 21:52] VITALS: PULSE 94; RESP 18; O2SAT 91
[2022-12-16] MEDS: albuterol 2.5 mg/3 mL Neb INHALATION ×3 (21:55→22:31)
[2022-12-16] MEDS: doxycycline 100 MG in sodium chloride 0.9% (plus) 100 ML IV (21:58)
[2022-12-16 22:11] LABS: Basophils # 0.1 10^3/uL (0.0-0.1); Basophils % 0.7 %; Eosinophils # 0.1 10^3/uL (0.0-0.8); Eosinophils % 0.6 %; Hemoglobin 14.9 g/dL (11.5-15.3); Lymphocytes # 3.7 10^3/uL (0.8-4.8); Lymphocytes % 24.8 %; Mean Corpuscular HGB Conc 33.1 g/dL (30.0-36.0); Mean Corpuscular Hemoglobin 29.9 pg (28.0-34.0); Mean Corpuscular Volume 90.4 fl (81-99); Mean Platelet Volume 10.3 fL (7.4-10.4); Monocytes # 1.4 10^3/uL (0.2-0.9); Monocytes % 9.5 %; Neutrophils # 9.59 10^3/uL (1.8-7.7); Neutrophils % 63.9 %; Nucleated Red Blood Cells % 0 %; Platelet Count 306 10^3/cmm (130-400); Red Blood Count 4.98 10^6/uL (4.1-5.3)
[2022-12-16 22:31] LABS: Alanine Aminotransferase 31 U/L (0-33); Albumin Level 4.3 g/dL (3.5-5.2); Alkaline Phosphatase 54 U/L (35-105); Anion Gap 18.2 (5-19); Aspartate Amino Transferase 30 U/L (0-32); Blood Urea Nitrogen 24 mg/dL (8-23); Calcium 9.9 mg/dL (8.5-10.5); Carbon Dioxide 26 mmol/L (22-29); Chloride 99 mmol/L (98-107); Globulin 3.2 g/dL (1.3-4.6); Glucose 135 mg/dL (65-115); NT Pro B Type Natriuretic Pept 191 pg/mL (0-125); Osmolality Calculated 294 mOsm/kg (285-295); Potassium 4.2 mmol/L (3.5-5.1); Sodium 139 mmol/L (136-145); Total Bilirubin 0.2 mg/dL (0.15-1.2); Total Protein 7.5 g/dL (6.6-8.7)
[2022-12-16 22:32] VITALS: PULSE 96; RESP 25; O2SAT 96
[2022-12-16 22:38] LABS: Influenza A by IFA negative (Negative); Influenza B by IFA negative (Negative); SARS Covid-2 Antigen negative (Negative)
[2022-12-16 22:58] VITALS: BP 157/64; PULSE 96; RESP 17; O2SAT 96
[2022-12-16 23:55] LABS: ABG PCO2 34.1 mmHg (35-45); ABG PH Result 7.47 (7.35-7.45); Arterial Blood Gas Hematocrit 44.4 % (37-47); Base Excess ABG 1.8 mmol/L (-2.0-2.0); Blood Gas Allen Test Pos; Blood Gas Sample Type Arterial; HCO3 ABG 24.9 mmol/L (22-26); PO2 ABG 80.3 mmHg (80.0-100.0)
[2022-12-16 23:57] LABS: Blood Gas Sample Site Radial, right; Oxygen Device NC
[2022-12-16 23:58] VITALS: BP 149/59; PULSE 94; RESP 24; O2SAT 89
[2022-12-17] VITALS (19 sets, daily range): BP systolic 102–150; BP diastolic 56–79; PULSE 62–95; RESP 16–25; TEMP 36.3–36.6; O2SAT 87–97
--- NOTE | 2022-12-17 00:13 | ECG_ITS ---
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 Measurements Intervals [place] Rate: 83 P: 38 TN: 122 QRS: 44 QRSD: 79 T: 65 QT: 355 QTc: 419 Interpretive Statements SINUS RHYTHM LOW QRS VOLTAGE IN EXTREMITY LEADS [QRS DEFLECTION < 0.5 mV IN LIMB LEADS] Compared to ECG 10/03/2021 21:54:54 No significant changes Electronically Signed On 12-17-2022 18:21:05 AFFIRMATIVE ACTION SPECIALIST by Golden Kruger M.D. [id number]
--- NOTE | 2022-12-17 00:17 | PM.HP ---
Providers/Chief Complaint Admitting Physician: Audelia Joy MD Primary Care Provider: EVARISTO Nunez Chief Complaint: SOB History of Present Illness Janene Anne is a 71 year old female with past medical history of hypertension, hypothyroidism, chronic smoker, type 2 diabetes mellitus which is diet controlled patient to the ER today because of worsening difficulty in breathing gradually over the last 2 days. In the ER she was found to be hypoxic requiring 4 L oxygen supplementation. At baseline patient does not use any oxygen. As per patient oral intake of liquids for last couple of days. She hurt her back few weeks ago for which she has been on oral steroids as per her PCP which finished 3 days ago and since then her breathing has gradually gotten worse. Patient denies any known history of COPD in the past but does use occasional rescue inhaler on and off. Review of Systems General: Reports: 10 or more systems reviewed and unremarkable except in HPI and below Const: Denies: fever(s), chills or body aches Eyes: Denies: change in vision, blurry vision or photophobia ENMT: Reports: hoarseness; Denies: throat pain, enlarged tonsils, odynophagia or nasal congestion Card: Denies: chest pain, palpitations, irregular heart rhythm, edema, swelling of feet/ankles, lightheadedness, pre-syncope, dyspnea on exertion or orthopnea Resp: Denies: dyspnea, productive cough, non-productive cough, wheezing, stridor, pain on inspiration, change in phlegm color, hemoptysis or chest congestion GI: Denies: abdominal pain, nausea, vomiting, hematemesis, coffee ground emesis, dysphagia, heartburn, diarrhea, constipation, GI cramping, change in stool character, hematochezia or melena : Denies: flank pain, difficulty voiding, dysuria, urinary frequency, urinary urgency, urinary hesitancy or hematuria Musc: Denies: neck pain, back pain, extremity pain, joint swelling, joint warmth or deformity Neuro: Denies: headache(s), numbness in extremities, weakness in extremities, sensory changes, difficulty walking, frequent falls, dizziness, vertigo, behavioral changes, Slurred speech present or seizure-like activity Psych: Denies: anxiety, depression, suicidal ideation or homicidal ideation Endo: Denies: polyuria, polydipsia, tired all the time, cold intolerance or hot flashes Rui/Lymph: Denies: easy bruising or easy bleeding Medications/Allergies Home Medications Medication Instructions Recorded Confirmed Last Taken Type atorvastatin 40 mg tablet 40 mg PO DAILY@02/15/20 12/17/22 12/15/22 21:00 History duloxetine 60 mg capsule,delayed 60 mg PO DAILY@02/15/20 12/17/22 12/16/22 09:00 History release (Cymbalta) duloxetine 30 mg capsule,delayed 30 mg PO DAILY@04/04/20 12/17/22 12/16/22 09:00 History release sprinkle albuterol sulfate 90 mcg/actuation 2 inh inhalation Q4H PRN shortness 09/27/20 12/17/22 Unknown Rx aerosol inhaler of breath or wheezing #6.7 grams alprazolam 1 mg tablet 1 mg PO DAILY@09/27/20 12/17/22 12/15/22 21:00 History aspirin 81 mg tablet,delayed 81 mg PO DAILY@09/27/20 12/17/22 09/27/20 History release levothyroxine 25 mcg tablet 25 mcg PO DAILY@09/27/20 12/17/22 12/16/22 09:00 History metoprolol tartrate 50 mg tablet 50 mg PO DAILY@09/27/20 12/17/22 12/16/22 09:00 History tizanidine 2 mg tablet 2 mg PO DAILY@ PRN Muscle Spasm 09/27/20 12/17/22 12/15/22 21:00 History albuterol sulfate 2.5 mg/3 mL 2.5 mg (3 mL) inhalation Q4H PRN 05/28/21 12/17/22 Unknown Rx (0.083 %) solution for nebulization shortness of breath or wheezing #90 mL diclofenac sodium 50 mg 50 mg PO BID #14 tabs 09/09/21 12/17/22 Unknown Rx tablet,delayed release amlodipine 5 mg tablet 5 mg PO DAILY #90 tabs 10/30/21 12/17/22 12/16/22 09:00 Rx Allergies Allergy/AdvReac Type Severity Reaction Status Date / Time codeine Allergy Unknown Verified 05/28/22 08:01 PFSH Acute PFSH: Medical History (Updated 12/17/22 @ 13:13 by Audelia Joy MD) Aftercare following surgery of the genitourinary system Anxiety Carotid arterial disease Chest pain DM type 2 (diabetes mellitus, type 2) GERD (gastroesophageal reflux disease) History of TIA (transient ischemic attack) HTN (hypertension) Hx of dizziness Hyperlipidemia Hypertension Hypothyroidism Mild cognitive impairment with memory loss Palpitations Small vessel disease, cerebrovascular Tobacco abuse Trigger thumb, right thumb Urinary retention with incomplete bladder emptying Vaginal prolapse Surgical History (Updated 12/17/22 @ 13:10 by Audelia Joy MD) H/O arthroscopic knee surgery H/O bladder repair surgery H/O section H/O neck surgery History of carpal tunnel surgery Hx of cholecystectomy Hx of hysterectomy, total S/P bladder repair single incision midurethral sling performed on 04/19/[address] Alva at [facility] Family History Daughter No problems noted. Brother Colon cancer, Onset Age: 64 Diabetes Hypertension Mother Diabetes Hypertension Stroke Denies family history of Clotting disorder Hyperlipidemia Anesthesia complication Bleeding disorder Social History Smoking and tobacco status: current every day smoker cigarettes Packs smoked per day: 0.5 Alcohol intake: never Lives independently: Yes Marital status: Vitals/I&O/Wt Last Vital Signs Temp 99.5 F 12/16/22 20:55 Pulse 96 12/16/22 22:32 Resp 25 H 12/16/22 22:32 BP 154/80 12/16/22 20:55 Pulse Ox 96 12/16/22 22:32 O2 Del Method 12/16/22 22:32 O2 Flow Rate 4 12/16/22 22:32 12/16/22 12/16/22 12/17/22 14:59 22:59 06:59 Intake Total 100 / 100 Balance 100 / 100 Weight last 48 hrs Weight 67.132 kg Physical Exam Narrative: General: No acute distress, AO 3 HEENT: PERRLA, pupils bilaterally equal and reactive, pallors not present Chest: Bilateral bronchial breath sounds all over lung moe with diffuse rhonchi all over the lung moe, bilateral slightly decreased air entry CVS: S1-S2 regular, no murmurs, no tachycardia, no gallops, no rubs Abdomen: Soft, nontender, no organomegaly, bowel sounds present Neuro: No focal deficits, no facial deformity, AO x3, power 5/5 in all limbs Data 12/16/22 21:30 12/16/22 21:30 A&P Assessment and plan (1) Respiratory failure with hypoxia: In setting of possible COPD exacerbation. Patient is chronic smoker. Chest x-ray results appreciated. Negative for any signs of pneumonia. Check D-dimer, TSH. Depending on D-dimer and can plan for CTA. Check sputum culture. Start on IV Solu-Medrol every 12 hourly, DuoNebs every 6 hour, budesonide twice daily. Ox supplementation keeping saturation over 92%. (2) Acute exacerbation of chronic obstructive airways disease: (3) GERD (gastroesophageal reflux disease): (4) DM type 2 (diabetes mellitus, type 2): On diet control. Last A1c 6.7 in 2019. (5) Hypothyroidism: Continue home dose of levothyroxine. (6) Cigarette smoker: Discussed in detail regarding smoking cessation. Patient is agreeable. States she is trying to come down by herself. Currently using 1 pack within 2 to 3 days. (7) RADHA (acute kidney injury): Insetting of poor oral intake. Encourage increase fluid intake. Medical reconstruction and for nephrotoxic drugs. Monitor BMP daily. No electrolyte abnormality. Plan Continue other chronic medications including aspirin, statin, duloxetine, metoprolol and tizanidine. Full code. Regular diet. Protonix for PUD prophylaxis Attestations Medical Necessity Statement*: Admit under observation for management of hypoxic respiratory failure setting of COPD exacerbation Diagnoses Respiratory failure with hypoxia J96.91 Acute exacerbation of chronic obstructive airways disease J44.1 GERD (gastroesophageal reflux disease) K21.9 DM type 2 (diabetes mellitus, type 2) E11.9 Hypothyroidism E03.9 Cigarette smoker F17.210 RADHA (acute kidney injury) N17.9
[2022-12-17 00:46] LABS: Troponin T (5th) Once 14 ng/L (0-10)
[2022-12-17 01:04] LABS: D Dimer 0.77 ug/mIFEU (0-0.59)
[2022-12-17] MEDS: acetaminophen 325 mg Tablet 650 MG PO (01:32)
[2022-12-17] MEDS: ipratropium-albuterol 3 mL Neb INHALATION ×4 (01:49→15:20)
[2022-12-17] MEDS: budesonide 0.5 mg/2 mL Neb INHALATION ×2 (08:14→21:27)
[2022-12-17] MEDS: duloxetine 60 mg Capsule PO (09:29)
[2022-12-17] MEDS: levothyroxine 25 mcg Tablet PO (09:29)
[2022-12-17] MEDS: aspirin 81 mg EC Tablet PO (09:30)
[2022-12-17] MEDS: metoprolol tartrate 50 mg Tablet PO (09:31)
[2022-12-17] MEDS: amlodipine 5 mg Tablet PO (09:31)
--- NOTE | 2022-12-17 10:19 | CT_ITS ---
WS: [id number] CT CHEST TECHNIQUE: Noncontrast CT of the chest with coronal and sagittal reformatted images. CLINICAL INFORMATION: Copd COMPARISON: None. DLP: 334.[address] scans at [facility] use at least one of these dose optimization techniques: automated e xposure control; mA and/or kV adjustment per patient size (includes targeted exams where dose is matc hed to clinical indication); or iterative reconstruction. FINDINGS: Lungs appear well aerated. Mild chronic emphysematous changes. No acute pulmonary infiltrates. No foc al pneumonia or pleural fluid. Normal caliber thoracic aorta. Mild aortic calcification. No axillary lymphadenopathy. No mediastinal or hilar lymphadenopathy. Adrenal glands are normal. Diffuse fatty infiltration liver. Hepatomegaly. Cholecystectomy clips. Fat ty atrophy of the pancreas. Normal GE junction. Hypertrophic changes thoracic spine. Disc space narro wing mid thoracic spine. Postoperative changes lower cervical spine. CT/CT chest wo con [id number] IMPRESSION: No acute chest findings
[2022-12-17 10:34] LABS: Iron 18 ug/dL (37-145); Percent Saturation 6.3 % (20-50); Total Iron Binding Capacity 285 mcg/dl; Unsaturated Iron Binding 267 ug/dL (112-347)
[2022-12-17 10:40] LABS: Procalcitonin 0.15 ng/mL (0-0.5)
[2022-12-17 10:53] LABS: Thyroid Stimulating Hormone 5.81 uIU/mL (0.27-4.20); Vitamin B12 485 pg/mL (232-1245)
[2022-12-17] MEDS: azithromycin 250 mg Tablet 500 MG PO (11:13)
[2022-12-17] MEDS: sodium chloride 0.9% 1,000 ML 75 ML IV (11:47)
[2022-12-17 12:05] LABS: Free T4 Free Thyroxine 0.99 ng/dL (0.82-1.77)
--- NOTE | 2022-12-17 13:05 | PM.PN ---
Subjective Subjective: Seen earlier today morning. Patient states she is feeling better than when she came in but still having shortness of breath on minimal exertion. Continued on 4 L oxygen supplementation. Having diffuse wheezing all over the lung moe. Has remained hemodynamically stable and afebrile. Vitals/I&O/Wt Last Vital Signs Temp 97.7 F 12/17/22 08:00 Pulse 78 12/17/22 11:05 Resp 16 12/17/22 11:05 BP 140/76 12/17/22 08:00 Pulse Ox 96 12/17/22 11:05 O2 Del Method 12/17/22 11:05 O2 Flow Rate 3 12/17/22 11:05 12/16/22 12/17/22 12/17/22 22:59 06:59 14:59 Intake Total 100 / 100 Balance 100 / 100 Weight last 48 hrs Weight 67.132 kg Physical Exam Narrative: General: No acute distress, AO 3, on nasal cannula oxygen supplementation, requiring accessory muscle off oxygen with ambulation HEENT: PERRLA, pupils bilaterally equal and reactive, pallors not present Chest: Bilateral bronchial breath sounds all over lung moe with diffuse rhonchi all over the lung moe, bilateral slightly decreased air entry CVS: S1-S2 regular, no murmurs, no tachycardia, no gallops, no rubs Abdomen: Soft, nontender, no organomegaly, bowel sounds present Neuro: No focal deficits, no facial deformity, AO x3, power 5/5 in all limbs Data 12/16/22 21:30 12/16/22 21:30 A&P Assessment and plan (1) Respiratory failure with hypoxia: In setting of possible COPD exacerbation. Patient is chronic smoker. Pneumonia less likely. D-dimer negative. Procalcitonin negative. Increase Solu-Medrol to 40 mg every 6 hours. DuoNeb every 4 hour, budesonide twice daily. Check CT chest without contrast to rule out consolidation. Start on empiric azithromycin for now. Check urine Legionella, bacterial antigen, sputum culture. (2) Acute exacerbation of chronic obstructive airways disease: (3) GERD (gastroesophageal reflux disease): (4) DM type 2 (diabetes mellitus, type 2): On diet control. Last A1c 6.7 in 2019. (5) Hypothyroidism: Continue home dose of levothyroxine. (6) Cigarette smoker: Discussed in detail regarding smoking cessation. Patient is agreeable. States she is trying to come down by herself. Currently using 1 pack within 2 to 3 days. (7) RADHA (acute kidney injury): Monitor BMP daily. Medical reconciliation for nephrotoxic drugs. Gentle IV hydration 75 cc/h for 1 bag. Plan Continue other chronic medications including aspirin, statin, duloxetine, metoprolol and tizanidine. Full code. Regular diet. Protonix for PUD prophylaxis Attestations Medical Necessity Statement*: Janene David Anne is being changed to inpatient status as stay will now exceed 2 midnights. Ongoing hospital care is necessary for extensive COPD with exacerbation leading to hypoxic respiratory failure with patient requiring new oxygen supplementation up to 4 L, extensive desaturation of oxygen requiring IV steroids Coding Level of Care Code Acute Code for Chg Fwd Other Coding Information Prolonged care (total time indicated above or notated here) (Repeat evaluation and examination given worsening difficulty in breathing secondary COPD exacerbation) Diagnoses Respiratory failure with hypoxia J96.91 Acute exacerbation of chronic obstructive airways disease J44.1 GERD (gastroesophageal reflux disease) K21.9 DM type 2 (diabetes mellitus, type 2) E11.9 Hypothyroidism E03.9 Cigarette smoker F17.210 RADHA (acute kidney injury) N17.9
[2022-12-17 13:54] LABS: Add Urine Microscopic? NO; Charge for UA Resulting for Rev
[2022-12-17 13:59] LABS: Bilirubin Urine Neg (Negative); Blood Urine Neg (Negative); Glucose Urine UA Norm (Normal); Ketones Urine 1+ (Negative); Leukocyte Esterase Urine Negative (Negative); Nitrate Urine Negative (Negative); Protein Urine Neg (Negative); Urine Appearance Clear (CLEAR); Urine Color Yellow (Yellow); Urobilinogen Urine Neg (Negative); pH Urine 6 (5-7)
[2022-12-17 14:00] LABS: Folate Level 18.8 ng/mL (4.8-37.3)
[2022-12-17] MEDS: ALPRAZolam 0.5 mg Tablet 1 MG PO (21:14)
[2022-12-17] MEDS: atorvastatin 40 mg Tablet PO (21:14)
[2022-12-17] MEDS: tizanidine 4 mg Tablet 2 MG PO (21:15)
[2022-12-18] VITALS (14 sets, daily range): BP systolic 106–150; BP diastolic 58–88; PULSE 68–81; RESP 16–18; TEMP 36.5–36.8; O2SAT 91–98
[2022-12-18] MEDS: ipratropium-albuterol 3 mL Neb INHALATION ×5 (01:31→21:15)
[2022-12-18 05:28] LABS: Basophils % 0.1 %; Hematocrit 40.1 % (37.0-47.0); Hemoglobin 13.3 g/dL (11.5-15.3); Lymphocytes # 1.8 10^3/uL (0.8-4.8); Lymphocytes % 7.9 %; Mean Corpuscular HGB Conc 33.2 g/dL (30.0-36.0); Mean Corpuscular Hemoglobin 30.5 pg (28.0-34.0); Mean Platelet Volume 9.9 fL (7.4-10.4); Monocytes # 0.8 10^3/uL (0.2-0.9); Monocytes % 3.6 %; Neutrophils # 19.41 10^3/uL (1.8-7.7); Neutrophils % 87.7 %; Nucleated Red Blood Cells % 0 %; Platelet Count 253 10^3/cmm (130-400); Red Blood Count 4.36 10^6/uL (4.1-5.3); Red Cell Distribution Width 14.3 % (12.1-15.1); White Blood Count 22.1 10^3/uL (4.0-10.0)
[2022-12-18 05:46] LABS: Alanine Aminotransferase 26 U/L (0-33); Albumin Level 3.7 g/dL (3.5-5.2); Alkaline Phosphatase 41 U/L (35-105); Anion Gap 16.4 (5-19); Aspartate Amino Transferase 30 U/L (0-32); Blood Urea Nitrogen 30 mg/dL (8-23); Calcium 9.3 mg/dL (8.5-10.5); Carbon Dioxide 23 mmol/L (22-29); Chloride 104 mmol/L (98-107); Chol HDL Ratio 2.07 mg/dL (0.0-4.40); Cholesterol 172 mg/dL (0-200); Globulin 2.8 g/dL (1.3-4.6); Glucose 166 mg/dL (65-115); HDL Cholesterol 83 mg/dL (60-100); LDL Cholesterol Calculated 73 mg/dL (50-129); Osmolality Calculated 296 mOsm/kg (285-295); Potassium 5.4 mmol/L (3.5-5.1); Sodium 138 mmol/L (136-145); Total Bilirubin 0.3 mg/dL (0.15-1.2); Total Protein 6.5 g/dL (6.6-8.7); Triglycerides 79 mg/dL (0-150); VLDL Cholestrol Calculation 16 mg/dL (0-30)
[2022-12-18 06:15] LABS: Estmated Average Glucose 131; Hemoglobin A1C 6.2 % (4.0-6.0)
[2022-12-18] MEDS: budesonide 0.5 mg/2 mL Neb INHALATION ×2 (08:34→21:15)
[2022-12-18] MEDS: levothyroxine 25 mcg Tablet PO (08:35)
[2022-12-18] MEDS: aspirin 81 mg EC Tablet PO (08:36)
[2022-12-18] MEDS: azithromycin 250 mg Tablet 500 MG PO (08:36)
[2022-12-18] MEDS: duloxetine 60 mg Capsule PO (08:36)
[2022-12-18] MEDS: metoprolol tartrate 50 mg Tablet PO ×2 (08:36→21:27)
[2022-12-18] MEDS: amlodipine 5 mg Tablet PO (08:36)
--- NOTE | 2022-12-18 09:18 | PC.CHAP ---
Pastoral Care Encounter/Spiritual Assessment Type of Contact [] Declined notching press operator visit [] Patient/Family/Request visit [] Outpatient visit [] Follow-up visit [] Physician referral [] Code/Alert [x] Routine visit [] Staff referral [] Actively dying [] Patient sleeping [] Family support [] [] Out of room [] Palliative care [] [x] Receiving care in room [] Pre-surgical visit [] Trauma [] Long length of stay [] ICU visit [] Other: Relational/Emotional Strength [] Patient feels connected with others/family/visitors/staff [] Distress [] Loneliness/isolation [] Abandonment Spirituality of Patient [] Person of Kizzy [] Attends Zoroastrianism of their Kizzy [] Believes in Prayer [] Reads Bible or Roman Catholic materials [] There are Spiritual issues to be addressed Patient Account Specialist Interventions [] Prayer [] Active listening [] Non-anxious presence [] Spiritual/emotional support [] Crisis/trauma care [] Spiritual counseling [] Bereavement support [] Provided bereavement packet [] Provided Bible/devotional materials [] Provided toy/stuffed animal, coloring book to patient or family member [] Provided Communion [] Anointing/[place] [] Salvation [] Completed spiritual assessment [] Other: Impact on Illness or Injury [] Angry [] Fearful [] Anxious [] Often cries [] Exhaustion [] Unable to work [] Unable to attend advent [] Unable to walk/stand [] Unable to read [] Unable to drive [] Unable to eat/drink [] Unable to sleep [] Unable to be with family [] Patient intubated [] Other: Summary Time spent with patient
--- NOTE | 2022-12-18 10:24 | USCV_ITS ---
Janene Anne Age: 72 Gender: F : 1950 Exam Date: 12/18/2022 13:39 Ordering Phys: Ronnell Almaraz MD Technologist: DEBBIE Exam Location: [facility] – [place] Indication: SHORTNESS OF BREATH BP: 128 / 67 HR: 62 Rhythm: Sinus Technical Quality: Adequate MEASUREMENTS (Male / Female) Normal Values 2D ECHO LVOT Diameter 2.0 cm LV Ejection Fraction MOD 2C 63.2 % LV Ejection Fraction 2C AL 62.4 % LA Diameter 2.9 cm LA Width 2.7 cm LA Height 3.7 cm RA Width 2.6 cm RA Height 4.2 cm Aorta at Sinotubular Diameter 2.3 cm IVC Diameter 1.5 cm M-MODE Aortic Annulus Diameter 2.0 cm LA Ao Ratio MM 1.3 MV E Point Septal Separation 0.7 cm DOPPLER AV Peak Velocity 163.0 cm/s LVOT Peak Velocity 132.0 cm/s AV Area Cont Eq vti 2.4 cm squared AV Area Cont Eq pk 2.5 cm squared MV Peak Velocity 110.0 cm/s MV Area PHT 4.4 cm squared Mitral E to A Ratio 1.4 MV E' Velocity 62.5 cm/s Mitral E to MV E' Ratio 9.6 Mitral E to LV E' Lateral Ratio 9.2 Mitral E to LV E' Septal Ratio 10.1 TR Peak Velocity 196.8 cm/s TR Peak Gradient 15.5 mmHg TR Mean Velocity 154.6 cm/s TR Mean Gradient 10.5 mmHg TR Velocity Time Integral 57.3 cm TV Peak E Velocity 58.0 cm/s Right Atrial Pressure 3.0 mmHg Pulmonary Artery Systolic Pressu 18.5 mmHg PV Peak Velocity 111.0 cm/s RV Acceleration Time 0.1 s RV Ejection Time 0.3 s RV AcT/ET 0.3 FINDINGS Left Ventricle Normal left ventricular size and systolic function, EF 63 %. No regional wall motion abnormalities. Right Ventricle The right ventricle is normal in size and function. Right Atrium The right atrium is normal in size. Left Atrium The left atrium is normal in size. Mitral Valve No gross abnormalities no Aortic Valve Thickened aortic valve. Tricuspid Valve Trace tricuspid valve regurgitation. Pulmonic Valve Pulmonic valve not well visualized. Pericardium Normal pericardium without effusion. Aorta Normal ascending aorta dimension. IVC Normal inferior vena cava. CONCLUSIONS Normal left ventricular size and systolic function, EF 63 %. No regional wall motion abnormalities. Trace tricuspid valve regurgitation. Thickened aortic valve. There is no pericardial effusion. Technically difficult study because of the poor ultrasonic window. Dr Sheyla Ervin MD FAC (Electronically Signed) Final Date: 19 December 2022 14:22 S
[2022-12-18] MEDS: FUROsemide 40 mg Tablet PO (10:46)
[2022-12-18] MEDS: pantoprazole DR 40 mg Tablet PO (10:46)
[2022-12-18] MEDS: amoxicillin-clav 875-125 mg Tablet 1 TAB PO ×2 (10:46→17:37)
--- NOTE | 2022-12-18 14:01 | PM.PN ---
Subjective Subjective: No acute events overnight. Patient denies any nausea vomiting, headache. Continues to remain on oxygen to maintain saturation over 92%. Today morning seen sitting in chair. States feeling little better. But still looks considerably dyspneic on examination. Having less wheeze. States her son and are asking her to be discharged and come back home. We discussed need for continued hospitalization given significant wheeze specially with no history of COPD and new requirement oxygen. Patient is agreeable to stay for 1 more day. Vitals/I&O/Wt Last Vital Signs Temp 97.7 F 12/18/22 11:43 Pulse 69 12/18/22 11:43 Resp 18 12/18/22 11:43 BP 128/67 12/18/22 11:43 Pulse Ox 98 12/18/22 11:43 O2 Del Method 12/18/22 11:43 O2 Flow Rate 2 12/18/22 11:15 12/17/22 12/18/22 12/18/22 22:59 06:59 14:59 Intake Total 250 / 520 1000 / 1520 400 / 400 Output Total 400 / 400 Balance 250 / 120 1000 / 1120 0 / 0 Weight last 48 hrs Weight 67.132 kg Physical Exam Narrative: General: No acute distress, AO 3, on nasal cannula oxygen supplementation, not requiring assessment muscles for oxygenation today. HEENT: PERRLA, pupils bilaterally equal and reactive, pallors not present Chest: Bilateral bronchial breath sounds all over lung moe with diffuse rhonchi all over the lung moe, bilateral slightly decreased air entry CVS: S1-S2 regular, no murmurs, no tachycardia, no gallops, no rubs Abdomen: Soft, nontender, no organomegaly, bowel sounds present Neuro: No focal deficits, no facial deformity, AO x3, power 5/5 in all limbs Data 12/18/22 05:16 12/18/22 05:16 Micro: Microbiology 12/18/22 10:50 Bacterial Antigens - Final Urine Kidney 12/18/22 10:50 Legionella Urinary Antigen - Final Unknown Source A&P Assessment and plan (1) Respiratory failure with hypoxia: Chronic smoker. Most likely COPD exacerbation in setting of acute bronchitis Procalcitonin, D-dimer negative. CT chest results appreciated without active consolidation with consistent with mild emphysema. Oxygen supplementation keeping saturation over 88%. Change Solu-Medrol 40 mg every 12 hourly. Continue with DuoNebs every 4 hour, budesonide twice daily. Urine Legionella, bacterial antigen negative. Sputum culture pending. Patient does give history of recurrent admissions every year for difficulty in breathing and diagnosed of recurrent pneumonias. Check respiratory viral panel. For now switch to oral Levaquin and Augmentin. Stop azithromycin. Check echocardiogram. Oral Lasix 40 mg one-time. Strict and proper charting. (2) Acute exacerbation of chronic obstructive airways disease: (3) GERD (gastroesophageal reflux disease): (4) DM type 2 (diabetes mellitus, type 2): On diet control. Last A1c 6.7 in 2019. (5) Hypothyroidism: Continue home dose of levothyroxine. (6) Cigarette smoker: Discussed in detail regarding smoking cessation. Patient is agreeable. States she is trying to come down by herself. Currently using 1 pack within 2 to 3 days. (7) RADHA (acute kidney injury): Resolved. Diuresis as above. Continue to monitor BMP daily. Plan Continue other chronic medications including aspirin, statin, duloxetine, metoprolol and tizanidine. Full code. Regular diet. Protonix for PUD prophylaxis Attestations Medical Necessity Statement*: Requires further hospitalization for management of hypoxic respiratory failure in setting of COPD exacerbation most likely secondary bronchitis as patient is requiring new oxygen. Diagnoses Respiratory failure with hypoxia J96.91 Acute exacerbation of chronic obstructive airways disease J44.1 GERD (gastroesophageal reflux disease) K21.9 DM type 2 (diabetes mellitus, type 2) E11.9 Hypothyroidism E03.9 Cigarette smoker F17.210 RADHA (acute kidney injury) N17.9
[2022-12-18 17:17] LABS: Adenovirus Not Detected (NOT DETECT); Chlamydia Pneumoniae Not Detected (NOT DETECT); Coronavirus 229E,HKU1,NL63,OC4 Detected (NOT DETECT); Human Metapneumovirus Not Detected (NOT DETECT); Human Rhinovirus/Enterovirus Not Detected (NOT DETECT); Influenza A Not Detected (NOT DETECT); Influenza A H1 Not Detected (NOT DETECT); Influenza A H1-2009 Not Detected (NOT DETECT); Influenza A H3 Not Detected (NOT DETECT); Influenza B Not Detected (NOT DETECT); Mycoplasma Pneumoniae Not Detected (NOT DETECT); Parainfluenza Virus Type 1 Not Detected (NOT DETECT); Parainfluenza Virus Type 2 Not Detected (NOT DETECT); Parainfluenza Virus Type 3 Not Detected (NOT DETECT); Parainfluenza Virus Type 4 Not Detected (NOT DETECT); Respiratory Syncytial Virus A Not Detected (NOT DETECT); Respiratory Syncytial Virus B Not Detected (NOT DETECT); SARS-COV-2 Not Detected (NOT DETECT)
[2022-12-18] MEDS: atorvastatin 40 mg Tablet PO (21:27)
[2022-12-18] MEDS: ALPRAZolam 0.5 mg Tablet 1 MG PO (21:27)
[2022-12-18] MEDS: tizanidine 4 mg Tablet 2 MG PO (21:27)
[2022-12-19] VITALS (8 sets, daily range): BP systolic 103–128; BP diastolic 64–74; PULSE 63–73; RESP 15–17; TEMP 36.6–36.8; O2SAT 86–95
[2022-12-19] MEDS: ipratropium-albuterol 3 mL Neb INHALATION ×3 (00:27→07:48)
[2022-12-19] MEDS: levoFLOXacin 750 mg Tablet PO (05:04)
[2022-12-19 05:14] LABS: Basophils % 0.1 %; Hematocrit 39.3 % (37.0-47.0); Hemoglobin 12.9 g/dL (11.5-15.3); Lymphocytes # 1.6 10^3/uL (0.8-4.8); Lymphocytes % 6.8 %; Mean Corpuscular HGB Conc 32.8 g/dL (30.0-36.0); Mean Corpuscular Hemoglobin 30.8 pg (28.0-34.0); Mean Corpuscular Volume 93.8 fl (81-99); Mean Platelet Volume 10.5 fL (7.4-10.4); Monocytes # 0.9 10^3/uL (0.2-0.9); Monocytes % 3.8 %; Neutrophils # 20.56 10^3/uL (1.8-7.7); Nucleated Red Blood Cells % 0 %; Platelet Count 228 10^3/cmm (130-400); Red Blood Count 4.19 10^6/uL (4.1-5.3); Red Cell Distribution Width 14.5 % (12.1-15.1); White Blood Count 23.4 10^3/uL (4.0-10.0)
[2022-12-19 05:30] LABS: Alanine Aminotransferase 28 U/L (0-33); Albumin Level 3.6 g/dL (3.5-5.2); Alkaline Phosphatase 45 U/L (35-105); Aspartate Amino Transferase 32 U/L (0-32); Blood Urea Nitrogen 33 mg/dL (8-23); Calcium 8.9 mg/dL (8.5-10.5); Carbon Dioxide 24 mmol/L (22-29); Chloride 100 mmol/L (98-107); Globulin 2.8 g/dL (1.3-4.6); Glucose 169 mg/dL (65-115); Osmolality Calculated 293 mOsm/kg (285-295); Sodium 136 mmol/L (136-145); Total Bilirubin 0.2 mg/dL (0.15-1.2); Total Protein 6.4 g/dL (6.6-8.7)
[2022-12-19 05:40] LABS: Anion Gap 16.6 (5-19); Potassium 4.6 mmol/L (3.5-5.1)
[2022-12-19] MEDS: budesonide 0.5 mg/2 mL Neb INHALATION (07:48)
[2022-12-19] MEDS: duloxetine 60 mg Capsule PO (08:14)
[2022-12-19] MEDS: amoxicillin-clav 875-125 mg Tablet 1 TAB PO (08:14)
[2022-12-19] MEDS: pantoprazole DR 40 mg Tablet PO (08:14)
[2022-12-19] MEDS: amlodipine 5 mg Tablet PO (08:14)
[2022-12-19] MEDS: aspirin 81 mg EC Tablet PO (08:14)
[2022-12-19] MEDS: levothyroxine 25 mcg Tablet PO (08:14)
[2022-12-19] MEDS: metoprolol tartrate 50 mg Tablet PO (08:14)
--- NOTE | 2022-12-19 09:46 | PC.NURSE ---
follow-up appointment scheduled for 01/07/[address] burdick can see patient.
--- NOTE | 2022-12-19 09:59 | PM.DCS ---
Discharge Providers Date of Admission: 12/17/22 10:20 Date of Discharge: December 19, 2022 Attending Provider at Admission: Audelia Joy MD Attending Provider at Discharge: Ronnell Almaraz MD Primary Care Provider: EVARISTO Nunez Diagnoses at Discharge Discharge Diagnosis (1) Respiratory failure with hypoxia: Status: Acute (2) Acute exacerbation of chronic obstructive airways disease: Status: Acute (3) GERD (gastroesophageal reflux disease): Status: Acute (4) DM type 2 (diabetes mellitus, type 2): Status: Acute (5) Hypothyroidism: Status: Acute (6) Cigarette smoker: Status: Acute (7) RADHA (acute kidney injury): Status: Acute Reason for Visit Reason for Visit: SOB Hospital Course Hospital Course Janene Anne is a 71 year old female with past medical history of hypertension, hypothyroidism, chronic smoker, type 2 diabetes mellitus which is diet controlled patient to the ER today because of worsening difficulty in breathing gradually over the last 2 days.? In the ER she was found to be hypoxic requiring 4 L oxygen supplementation.? At baseline patient does not use any oxygen.? As per patient oral intake of liquids for last couple of days.? She hurt her back few weeks ago for which she has been on oral steroids as per her PCP which finished 3 days ago and since then her breathing has gradually gotten worse.? Patient denies any known history of COPD in the past but does use occasional rescue inhaler on and off. Patient admitted to the hospital for management of hypoxia with new oxygen requirement in setting of possible COPD exacerbation. She was started on IV steroids along with inhalation treatment. CT imaging ruled out any consolidation but was consistent with mild emphysema. Respiratory viral panel was positive for coronavirus without COVID-19. Patient's resolution of symptoms were very gradual. Her blood culture remain negative. Because of slow resolution of symptoms and her requiring high oxygen supplementation she was started on empiric antibiotics. Echocardiogram on 16 February showed a normal EF with trace TR. Home oxygen evaluation has been done prior to discharge. She has been discharged imminently stable condition on oral Levaquin and Augmentin for 5-day course along with steroid taper and inhalation treatment. She is advised to continue inhalation treatment even after resolution of symptoms secondary to COPD. She is advised to follow-up as an outpatient for pulmonary function test. Physical Exam Narrative: General: No acute distress, AO 3, on nasal cannula oxygen supplementation, not requiring assessment muscles for oxygenation today. HEENT: PERRLA, pupils bilaterally equal and reactive, pallors not present Chest: Bilateral bronchial breath sounds all over lung moe with diffuse rhonchi all over the lung moe, bilateral slightly decreased air entry CVS: S1-S2 regular, no murmurs, no tachycardia, no gallops, no rubs Abdomen: Soft, nontender, no organomegaly, bowel sounds present Neuro: No focal deficits, no facial deformity, AO x3, power 5/5 in all limbs Discharge Data Studies Completed and Pending Completed Studies During Hospitalization Category Date Time Status CT chest wo con [id number] Routine Cat Scan 12/17/22 10:19 Completed XR chest 1V portable [id number] Stat Exams 12/16/22 21:22 Completed Pending at discharge Category Date Time Status Sputum Culture and Gram Stain Stat Lab 12/17/22 13:17 Uncollected CV. echo complete* [id number] Routine Ultrasound 12/18/22 10:24 Taken Radiology Impressions Chest X-Ray 12/16/22 21:22 IMPRESSION: No acute findings. Chest CT 12/17/22 10:19 IMPRESSION: No acute chest findings Echocardiogram: CONCLUSIONS ?Normal left ventricular size and systolic function, EF 63 %. No ?regional wall motion abnormalities. ?Trace tricuspid valve regurgitation. ?Thickened aortic valve. ?There is no pericardial effusion. ?Technically difficult study because of the poor ultrasonic ?window. ?Dr Sheyla Ervin MD [facility] ?(Electronically Signed) ?Final Date:? ? ? 19 December 2022 ? 14:22 Laboratory Results WBC 23.4 10^3/uL (4.0-10.0) H 12/19/22 04:17 RBC 4.19 10^6/uL (4.1-5.3) 12/19/22 04:17 Hgb 12.9 g/dL (11.5-15.3) 12/19/22 04:17 Hct 39.3 % (37.0-47.0) 12/19/22 04:17 MCV 93.8 fl (81-99) 12/19/22 04:17 MCH 30.8 pg (28.0-34.0) 12/19/22 04:17 MCHC 32.8 g/dL (30.0-36.0) 12/19/22 04:17 RDW 14.5 % (12.1-15.1) 12/19/22 04:17 Plt Count 228 10^3/cmm (130-400) 12/19/22 04:17 MPV 10.5 fL (7.4-10.4) H 12/19/22 04:17 Neut % (Auto) 88.0 % 12/19/22 04:17 Lymph % (Auto) 6.8 % 12/19/22 04:17 Wilkinson % (Auto) 3.8 % 12/19/22 04:17 Eos % (Auto) 0.0 % 12/19/22 04:17 Baso % (Auto) 0.1 % 12/19/22 04:17 Neut # (Auto) 20.56 10^3/uL (1.8-7.7) H 12/19/22 04:17 Lymph # (Auto) 1.6 10^3/uL (0.8-4.8) 12/19/22 04:17 Wilkinson # (Auto) 0.9 10^3/uL (0.2-0.9) 12/19/22 04:17 Eos # (Auto) 0.0 10^3/uL (0.0-0.8) 12/19/22 04:17 Baso # (Auto) 0.0 10^3/uL (0.0-0.1) 12/19/22 04:17 Nucleated RBC % (auto) 0 % 12/19/22 04:17 Nucleated RBCs # 0.0 /100WBC 12/19/22 04:17 D-Dimer 0.77 ug/mIFEU (0-0.59) H 12/16/22 21:30 Specimen Type Arterial 12/16/22 23:46 Sample Site Radial, right 12/16/22 23:46 ABG pH 7.47 (7.35-7.45) H 12/16/22 23:46 ABG pCO2 34.1 mmHg (35-45) L 12/16/22 23:46 ABG pO2 80.3 mmHg (80.0-100.0) 12/16/22 23:46 ABG HCO3 24.9 mmol/L (22-26) 12/16/22 23:46 ABG Base Excess 1.8 mmol/L (-2.0-2.0) 12/16/22 23:46 Ben Test Pos 12/16/22 23:46 Hematocrit 44.4 % (37-47) 12/16/22 23:46 O2 Delivery Device Nc 12/16/22 23:46 O2 Liters/Min 5.0 % 12/16/22 23:46 Boiler Reliner ID [id number] 12/16/22 23:46 Sodium 136 mmol/L (136-145) 12/19/22 04:17 Potassium 4.6 mmol/L (3.5-5.1) 12/19/22 04:17 Chloride 100 mmol/L (98-107) 12/19/22 04:17 Carbon Dioxide 24 mmol/L (22-29) 12/19/22 04:17 Anion Gap 16.6 (5-19) 12/19/22 04:17 BUN 33 mg/dL (8-23) H 12/19/22 04:17 Creatinine 1.0 mg/dL (0.5-0.9) H 12/19/22 04:17 GFR Calculation Not Reportable 12/19/22 04:17 Glucose 169 mg/dL (65-115) H 12/19/22 04:17 Estimat Average Glucose 131 12/18/22 05:16 Hemoglobin A1c 6.2 % (4.0-6.0) H 12/18/22 05:16 Calculated Osmolality 293 mOsm/kg (285-295) 12/19/22 04:17 Calcium 8.9 mg/dL (8.5-10.5) 12/19/22 04:17 Iron 18 ug/dL (37-145) L 12/16/22 21:30 TIBC 285 mcg/dl 12/16/22 21:30 % Saturation 6.3 % (20-50) L 12/16/22 21:30 Unsat Iron Binding 267 ug/dL (112-347) 12/16/22 21:30 Total Bilirubin 0.2 mg/dL (0.15-1.2) 12/19/22 04:17 AST 32 U/L (0-32) 12/19/22 04:17 ALT 28 U/L (0-33) 12/19/22 04:17 Alkaline Phosphatase 45 U/L (35-105) 12/19/22 04:17 Troponin T Gen 5 ng/L 14 ng/L (0-10) H 12/16/22 21:30 NT-Pro-B Natriuret Pep 191 pg/mL (0-125) H 12/16/22 21:30 Total Protein 6.4 g/dL (6.6-8.7) L 12/19/22 04:17 Albumin 3.6 g/dL (3.5-5.2) 12/19/22 04:17 Globulin 2.8 g/dL (1.3-4.6) 12/19/22 04:17 Triglycerides 79 mg/dL (0-150) 12/18/22 05:16 Cholesterol 172 mg/dL (0-200) 12/18/22 05:16 LDL Cholesterol, Calc 73 mg/dL (50-129) 12/18/22 05:16 Total VLDL Cholesterol 16 mg/dL (0-30) 12/18/22 05:16 HDL Cholesterol 83 mg/dL (60-100) 12/18/22 05:16 Cholesterol/HDL Ratio 2.07 mg/dL (0.0-4.40) 12/18/22 05:16 Vitamin B12 485 pg/mL (232-1245) 12/16/22 21:30 Folate 18.8 ng/mL (4.8-37.3) 12/17/22 12:59 Procalcitonin 0.15 ng/mL (0-0.5) 12/16/22 21:30 TSH 5.81 uIU/mL (0.27-4.20) H 12/16/22 21:30 Free T4 0.99 ng/dL (0.82-1.77) 12/16/22 21:30 Free T3 3.0 PG/ML (2.0-4.4) 12/16/22 21:30 Urine Color Yellow (Yellow) 12/17/22 13:42 Urine Appearance Clear (CLEAR) 12/17/22 13:42 Urine pH 6 (5-7) 12/17/22 13:42 Ur Specific [place] 1.020 (1.005-1.030) 12/17/22 13:42 Urine Protein Neg (Negative) 12/17/22 13:42 Urine Glucose (UA) Norm (Normal) 12/17/22 13:42 Urine Ketones 1+ (Negative) H 12/17/22 13:42 Urine Blood Neg (Negative) 12/17/22 13:42 Urine Nitrate Negative (Negative) 12/17/22 13:42 Urine Bilirubin Neg (Negative) 12/17/22 13:42 Urine Urobilinogen Neg mg/dL (Negative) 12/17/22 13:42 Ur Leukocyte Esterase Negative (Negative) 12/17/22 13:42 Nasal Influ A H1 2009 PCR Not detected (NOT DETECT) 12/18/22 14:30 Adenovirus (PCR) Not detected (NOT DETECT) 12/18/22 14:30 C. pneumoniae DNA (PCR) Not detected (NOT DETECT) 12/18/22 14:30 Coronavirus 229E (PCR) Detected (NOT DETECT) A 12/18/22 14:30 Human Metapneumovir PCR Not detected (NOT DETECT) 12/18/22 14:30 Influenza A (H1) PCR Not detected (NOT DETECT) 12/18/22 14:30 Influenza A (H3) PCR Not detected (NOT DETECT) 12/18/22 14:30 Influenza Type A Ag negative (Negative) 12/16/22 22:15 Influenza Type A (PCR) Not detected (NOT DETECT) 12/18/22 14:30 Influenza Type B Ag negative (Negative) 12/16/22 22:15 Influenza Type B (PCR) Not detected (NOT DETECT) 12/18/22 14:30 M. pneumoniae (PCR) Not detected (NOT DETECT) 12/18/22 14:30 Parainfluenza 1 (PCR) Not detected (NOT DETECT) 12/18/22 14:30 Parainfluenza 2 (PCR) Not detected (NOT DETECT) 12/18/22 14:30 Parainfluenza 3 (PCR) Not detected (NOT DETECT) 12/18/22 14:30 Parainfluenza 4 (PCR) Not detected (NOT DETECT) 12/18/22 14:30 RSV Type A (PCR) Not detected (NOT DETECT) 12/18/22 14:30 RSV Type B (PCR) Not detected (NOT DETECT) 12/18/22 14:30 Entero/Rhino (PCR) Not detected (NOT DETECT) 12/18/22 14:30 SARS-CoV-2 (PCR) Not detected (NOT DETECT) 12/18/22 14:30 SARS-CoV-2 Ag (Rapid) negative (Negative) 12/16/22 22:15 Vitals Last Vital Signs Temp 98.2 F 12/19/22 08:00 Pulse 70 12/19/22 08:00 Resp 16 12/19/22 08:00 BP 114/66 12/19/22 08:00 Pulse Ox 94 12/19/22 08:00 O2 Del Method 12/19/22 07:48 O2 Flow Rate 2 12/19/22 04:00 FiO2 2 12/19/22 07:48 Discharge Plan Discharge Patient Disposition: Home Condition: Stable Prescriptions: New pantoprazole 40 mg Tablet,Delayed Release (Dr/Ec) 40 mg PO DAILY Qty: 14 0RF levofloxacin 750 mg Tablet 750 mg PO DAILY@0600 Qty: 4 0RF amoxicillin-pot clavulanate 875-125 mg Tablet 1 tab PO BID Qty: 8 0RF Advair Diskus 250-50 mcg/dose blister with device 1 inh inhalation BID Qty: 60 0RF Spiriva with HandiHaler 18 mcg capsule, w/inhalation device 1 cap inhalation DAILY Qty: 30 0RF Rx Instructions: puncture 1 cap using device; one dose = 2 inhalations Continued duloxetine [Cymbalta] 60 mg capsule,delayed release(DR/EC) 60 mg PO DAILY@09 atorvastatin 40 mg tablet 40 mg PO DAILY@21 duloxetine 30 mg capsule, delayed rel sprinkle 30 mg PO DAILY@09 amlodipine 5 mg tablet 5 mg PO DAILY Qty: 90 0RF tizanidine 2 mg tablet 2 mg PO DAILY@21 PRN (Reason: Muscle Spasm) alprazolam 1 mg tablet 1 mg PO DAILY@21 aspirin 81 mg Tablet,Delayed Release (Dr/Ec) 81 mg PO DAILY@09 levothyroxine 25 mcg tablet 25 mcg PO DAILY@09 metoprolol tartrate 50 mg tablet 50 mg PO DAILY@09 albuterol sulfate 90 mcg/actuation HFA aerosol inhaler 2 inh INHALATION Q4H PRN (Reason: shortness of breath or wheezing) Qty: 6.7 0RF albuterol sulfate 2.5 mg /3 mL (0.083 %) solution for nebulization 2.5 mg inhalation Q4H PRN (Reason: shortness of breath or wheezing) Qty: 90 0RF diclofenac sodium 50 mg tablet,delayed release (DR/EC) 50 mg PO BID Qty: 14 0RF cyclobenzaprine 5 mg Tablet 5 mg PO BID PRN (Reason: Muscle Spasm) Discharge Orders: Discharge Order (Routine); Ordered 12/19/22 Ordered By: Ronnell Almaraz Other Ambulatory Orders: DME: Oxygen (Order) Location: None Selected Ordered By: Ronnell Almaraz Pulmonary Function Screen with Bronchodilator (Routine) Timeframe: 2 Weeks Facility: [facility] - Location: Respiratory Therapy Ordered By: Ronnell Almaraz Referrals: [facility] [place] [Outside] Meghan Holley FNP [Primary Care Provider] - 01/07/23 10:00 am Discharge Diet: Regular Discharge Activity: Resume usual activity and Increase activity as tolerated Patient Instructions: Amoxicillin/Clavulanate Potassium (By mouth), Levofloxacin (By mouth), Pantoprazole (By mouth), Fluticasone/Salmeterol (By breathing), Tiotropium (By breathing), COPD (Chronic Obstructive Pulmonary Disease) (GEN), Opioid Safety Discharge Attestations Time Spent in Discharge Care*: greater than 30 min Specific Discharge Activities: educating patient, educating and/or supporting family/caregiver, discussing with pcp/other providers, discussing with classification case manager/social workers/dc planners, documenting/other paperwork and evaluating patient/reviewing data Status at Discharge: Cognitive status at discharge: cognitively intact, Behavioral status at discharge: cooperative, Functional status at discharge: independent ambulation, Overall status at discharge: patient is back to baseline Quality Metrics Clinical Quality Measures [ No reported AMI, CVA or VTE this stay] Coding Level of Care Code 12827 Total time (in minutes) for Discharge: 50 Diagnoses Respiratory failure with hypoxia J96.91 Acute exacerbation of chronic obstructive airways disease J44.1 GERD (gastroesophageal reflux disease) K21.9 DM type 2 (diabetes mellitus, type 2) E11.9 Hypothyroidism E03.9 Cigarette smoker F17.210 RADHA (acute kidney injury) N17.9
== END 2022-12-19 15:07 | disposition home or self-care (01) | DRG 189 ==
LOC: ER 23:34 → MEDSURG 12-17 00:31
PROVIDERS: Emergency Medicine; Admitting Provider Student in an Organized Health Care Education/Training Program; Emergency Provider Emergency Medicine; PCP Nurse Practitioner Family; Visit Provider Student in an Organized Health Care Education/Training Program
DX: J96.91 Respiratory failure, unspecified with hypoxia (principal); N17.9 Acute kidney failure, unspecified; J20.9 Acute bronchitis, unspecified; J43.9 Emphysema, unspecified; I10 Essential (primary) hypertension; E03.9 Hypothyroidism, unspecified; E11.9 Type 2 diabetes mellitus without complications; Z79.82 Long term (current) use of aspirin; Z79.51 Long term (current) use of inhaled steroids; F41.9 Anxiety disorder, unspecified; Z86.73 Personal history of transient ischemic attack (TIA), and cerebral infarction without residual deficits; E78.5 Hyperlipidemia, unspecified; F17.210 Nicotine dependence, cigarettes, uncomplicated; K21.9 Gastro-esophageal reflux disease without esophagitis; B97.29 Other coronavirus as the cause of diseases classified elsewhere
CPT/HCPCS: 36415; 36600; 71045; 71250; 80053; 80061; 81003; 82607; 82746; 82803; 83036; 83540; 83550; 83880; 84145; 84439; 84443; 84481; 84484; 85025; 85378; 86403; 87426; 87449; 87486; 87581; 87633; 87804; 93005; 93306; 94640; 94760; 96365; 96375; 99285; G0378; J2920; J2930; J3490; J7030; J7613; J7626; Q0144

== ENCOUNTER 2023-12-06 16:36 | Emergency (ER) | payer MEDICARE, OTHER, SELFPAY ==
[2023-12-06 16:45] VITALS: BP 119/67; PULSE 87; RESP 16; TEMP 36.9; O2SAT 95; BMI 27.9
--- NOTE | 2023-12-06 17:15 | CTR_ITS ---
PROCEDURE INFORMATION: Exam: CT Head Without Contrast Exam date and time: 12/06/2023 5:25 PM Age: 72 years old Clinical indication: Injury or trauma; Fall; Blunt trauma (contusions or hematomas); Additional info: Fall, trauma TECHNIQUE: Imaging protocol: Computed tomography of the head without contrast. Radiation optimization: All CT scans at this facility use at least one of these dose optimization techniques: automated exposure control; mA and/or kV adjustment per patient size (includes targeted exams where dose is matched to clinical indication); or iterative reconstruction. COMPARISON: CT angio headneck* [id number] 10/03/2021 9:38 PM RADIATION DOSE METRICS: Total DLP (mGy-cm): 885.2 FINDINGS: Brain: There is mild cerebral atrophy. There are mild deep white matter microangiopathic ischemic changes. No acute hemorrhage is identified. No mass or mass effect is identified. Cerebral ventricles: The ventricles are prominent secondary to atrophy. Paranasal sinuses: Visualized sinuses are unremarkable. No fluid levels. Mastoid air cells: Visualized mastoid air cells are well aerated. Bones/joints: Unremarkable. No acute fracture. Soft tissues: Unremarkable. CT/CT head wo con* [id number] IMPRESSION: 1. No acute intracranial pathology. 2. Senescent changes.
--- NOTE | 2023-12-06 17:15 | CTR_ITS ---
PROCEDURE INFORMATION: Exam: CT Cervical Spine Without Contrast Exam date and time: 12/06/2023 5:25 PM Age: 72 years old Clinical indication: Injury or trauma; Fall; Blunt trauma; Prior surgery; Surgery date: 6+ months; Surgery type: Fusion TECHNIQUE: Imaging protocol: Computed tomography of the cervical spine without contrast. Radiation optimization: All CT scans at this facility use at least one of these dose optimization techniques: automated exposure control; mA and/or kV adjustment per patient size (includes targeted exams where dose is matched to clinical indication); or iterative reconstruction. COMPARISON: CT angio headneck* [id number] 10/03/2021 9:38 PM RADIATION DOSE METRICS: Total DLP (mGy-cm): 605.2 FINDINGS: Bones/joints: Straightening and reversal of the normal cervical lordosis. Anterior fusion hardware C5-C7 . No evidence of acute fracture. Moderate multilevel degenerative changes. No evidence of acute fracture or dislocation. Lungs: Lung apices are normal. Soft tissues: Unremarkable. CT/CT cervical spin wo con* [id number] IMPRESSION: No evidence of acute fracture or dislocation.
--- NOTE | 2023-12-06 17:15 | CTR_ITS ---
PROCEDURE INFORMATION: Exam: CT Maxillofacial Without Contrast Exam date and time: 12/06/2023 5:25 PM Age: 72 years old Clinical indication: Injury or trauma; Fall; Blunt trauma (contusions or hematomas); Lip/oral cavity; Lower; Additional info: Fall, trauma TECHNIQUE: Imaging protocol: Computed tomography of the face without contrast. Radiation optimization: All CT scans at this facility use at least one of these dose optimization techniques: automated exposure control; mA and/or kV adjustment per patient size (includes targeted exams where dose is matched to clinical indication); or iterative reconstruction. COMPARISON: CT head wo con* [id number] 12/06/2023 5:25 PM RADIATION DOSE METRICS: Total DLP (mGy-cm): 590.3 FINDINGS: Orbital cavities: Orbits are normal. Globes are unremarkable. Bones/joints: Mildly displaced fracture of the maxillary spine. No other definitive facial fractures are identified. Paranasal sinuses: Normal. No air-fluid levels. Soft tissues: Apparent soft tissue swelling of the lip. Dental: Edentulous oral cavity. Mild periodontal disease on the right. CT/CT facial bones wo con* [id number] IMPRESSION: 1. Mildly displaced fracture of the maxillary spine. 2. No other definitive facial fractures are identified.
[2023-12-06] MEDS: ketorolac 30 mg/mL INJ 15 MG IVP (18:03)
[2023-12-06] MEDS: tetanus-dipt-pertussis 0.5 mL SDV IM (18:35)
--- NOTE | 2023-12-06 18:45 | W.ED.WOUNDLC ---
HPI - Wound/Laceration General: Chief Complaint: Wound/Laceration Stated Complaint: lip lac Time Seen by Provider: 12/06/23 17:01 History of Present Illness: Deena is a 72-year-old female that presents to the emergency department with a lip laceration. Patient was brought in by her daughter. Patient reports that she fell out of bed around 2 AM. She had difficulty getting back into bed but did not feel compelled to call for help. She states that she noted heavy bleeding from her lip. She has facial pain. Patient went back to sleep and then woke up at noon the next day once awake she said she was in too much pain so took another Xanax and went back to sleep. At 3:00 this afternoon her daughter found her noted an avulsion of the lower lip. Patient denies any headache, confusion, nausea or vomiting Patient has a 4 cm laceration/avulsion of the lower lip that crosses the vermilion border and is full-thickness. There is quite a bit of swelling but no active bleeding Associated symptoms: Denies chills, fever(s), nausea or vomiting Review of Systems General: Reports: 10 or more systems reviewed and unremarkable except in HPI and below Const: Reports: fatigue; Denies: fever(s), chills, change in appetite, change in weight or malaise Eyes: Denies: change in vision, eye discomfort, eye discharge or eye redness ENMT: Reports: mouth pain; Denies: throat pain, enlarged tonsils, odynophagia, hoarseness, ear or mastoid pain, ear discharge, change in hearing, tinnitus, nasal discharge, nasal congestion, post nasal drip or sinus pain Card: Denies: chest pain, palpitations, irregular heart rhythm, edema, dyspnea on exertion, orthopnea or leg pain with exertion Resp: Reports: non-productive cough (Present for the last 4 to 6 weeks); Denies: dyspnea, productive cough, wheezing, stridor or chest congestion GI: Denies: abdominal pain, nausea, vomiting, dysphagia, diarrhea, constipation, bloating, GI cramping or hematochezia : Denies: flank pain, difficulty voiding, dysuria, urinary frequency, urinary urgency, urinary hesitancy, oliguria or hematuria Musc: Denies: neck pain, back pain, extremity pain, joint pain, joint swelling, joint redness, joint warmth or muscle weakness Skin/Breast: Denies: rash, pruritus, erythema, photosensitivity or new lesions Neuro: Denies: headache(s), numbness in extremities, weakness in extremities, sensory changes, lack of coordination, difficulty walking, frequent falls, dizziness, confusion, Slurred speech present, difficulty communicating thoughts, seizure-like activity or involuntary movements Endo: Denies: polyuria, polydipsia or tired all the time Rui/Lymph: Denies: easy bruising or easy bleeding PFSH ED PFSH: Medical History (Updated 12/06/23 @ 19:56 by MARIA LUZ Saldaña) Urinary retention with incomplete bladder emptying Trigger thumb, right thumb History of TIA (transient ischemic attack) GERD (gastroesophageal reflux disease) DM type 2 (diabetes mellitus, type 2) Hypothyroidism Anxiety Hyperlipidemia Hypertension Small vessel disease, cerebrovascular Mild cognitive impairment with memory loss Aftercare following surgery of the genitourinary system Chest pain Tobacco abuse Hx of dizziness HTN (hypertension) Carotid arterial disease Palpitations Vaginal prolapse Surgical History (Updated 12/17/22 @ 13:10 by Audelia Joy MD) S/P bladder repair single incision midurethral sling performed on 04/19/[address] Alva at [facility] History of carpal tunnel surgery H/O arthroscopic knee surgery H/O bladder repair surgery H/O section Hx of cholecystectomy Hx of hysterectomy, total H/O neck surgery Family History Daughter No problems noted. Brother Colon cancer, Onset Age: 64 Diabetes Hypertension Mother Diabetes Hypertension Stroke Denies family history of Clotting disorder Hyperlipidemia Anesthesia complication Bleeding disorder Social History Smoking and tobacco/nicotine status: current every day tobacco/nicotine user cigarettes Packs smoked per day: 0.5 Alcohol intake: never Substance/Drug Use: never Lives independently: Yes Marital status: Physical Exam Const: COMMON NORMALS: no acute distress, patient oriented x3 and alert GENERAL APPEARANCE: cooperative ORIENTATION/CONSCIOUSNESS: Yes awake, Yes oriented to person, Yes oriented to place and Yes oriented to time HENMT: COMMON NORMALS: normocephalic and atraumatic HEAD & SCALP: normocephalic and atraumatic FACE & SINUS: normal facial exam MOUTH: tongue normal, lip abnormal (Full-thickness lip laceration, lower lip) and mouth trauma TEETH & GINGIVA: Yes dentures THROAT: posterior oropharynx normal Eye: COMMON NORMALS: Equal, round and reactive pupils present, EOMs intact bilaterally, conjunctivae normal and no scleral icterus GENERAL EYE: appearance normal, both eyes and all related structures ALIGNMENT: Yes alignment normal PERIORBITAL: periorbital findings normal CONJUNCTIVA: Yes conjunctivae normal PUPIL: Yes Equal, round and reactive pupils present Neck/C-Spine: COMMON NORMALS: full ROM GENERAL: Yes normal visual inspection Lymph: LYMPHATIC: no lymphadenopathy noted Chest: COMMONS NORMALS: normal inspection of the chest Breast/axilla inspection: Yes no chest deformity, asymmetry, normal contours, no nodules, masses, tenderness Resp: COMMON NORMALS: normal respiratory effort, No retractions and No use of accessory muscles EFFORT & INSPECTION: Yes able to speak in complete sentences and Yes symmetric chest movement Cardio: COMMON NORMALS: regular rate, regular rhythm and Peripheral pulses 2+ throughout RATE: regular rate RHYTHM: regular rhythm PERIPHERAL PULSES: Peripheral pulses 2+ throughout GI: COMMON NORMALS: Normal to inspection, nondistended, normoactive bowel sounds present, Soft to palpation, non-tender and No hepatosplenomegaly present INSPECTION: Yes normal to inspection AUSCULTATION: Yes normoactive bowel sounds PALPATION: Yes Soft to palpation and Yes No hepatosplenomegaly present RECTAL EXAM: deferred Extremity: COMMON NORMALS: normal to inspection GENERAL: Yes normal exam except as noted Neuro: COMMON NORMALS: patient oriented x3 SENSORIUM/ORIENTATION: Yes alert, Yes oriented to person, Yes oriented to place and Yes oriented to time CRANIAL NERVES: Yes CN normal except as noted Psych: COMMON NORMALS: mental status grossly normal, Normal thought process present, cooperative, speech normal, denies homicidal ideation and denies suicidal ideation SPEECH: Yes normal speech MOOD & AFFECT: Yes Blunted affect present (Patient took a Xanax at 12:00) THOUGHT PROCESS: Normal thought process present Skin: COMMON NORMALS: no rashes or lesions noted, no wounds and turgor normal GENERAL SKIN EXAM: no rashes or lesions noted and turgor normal Procedures Laceration Laceration 1: Site: lip Size (cm): 4 Description: flap and involves sunita border Depth: [id number] Local Anesthetic: lidocaine 1% Amount of anesthesia used (mL): 1 Pre-repair: wound explored and irrigated extensively Skin layer closed with: nylon and vicryl Size (cm): 5-0 Number of sutures: 9 Technique: simple, interrupted Course Vital Signs: Vital signs: Vital Signs Temperature 98.4 F 12/06/23 16:45 Pulse Rate 87 12/06/23 16:45 Respiratory Rate 16 12/06/23 16:45 Blood Pressure 119/67 12/06/23 16:45 Pulse Oximetry 95 12/06/23 16:45 MDM - Wound/Laceration Medical Decision Making Patient was evaluated in the emergency department today for complex lip laceration. Patient had fallen out of bed at about 2 AM however has not sought evaluation as she slept most of the day. She states that she slept most of the day because she took another Xanax today thinking that would help her pain. Patient has been on the same dose, 1 mg, for the last [address] imaging, head, cervical spine and facial bones. Patient was found to have a maxillary spine fracture. Her cervical spine reveals degenerative changes but no acute process. She denies any neck pain or upper extremity pain. Patient denies a headache but due to her grogginess opted for a CT head. No acute intracranial process identified. I did offer her referral and transfer to plastics. She is elected me to repair and have outpatient follow-up. Patient underwent lip repair. 9 sutures placed with combination of Vicryl and nylon. Patient has chosen [facility] for follow-up. I have asked the correctional casework specialist to assist with the referral process on Friday for outpatient follow-up with plastics.. Case reviewed with Dr. Mcclain. She is going to be treated prophylactically with Augmentin. Her first dose was given here in the emergency department Patient is going to discharge home and will return here for new concerning or worsening symptoms Lab Data Radiology Impressions Cervical Spine CT 12/06/23 17:15 IMPRESSION: No evidence of acute fracture or dislocation. Face CT 12/06/23 17:15 IMPRESSION: 1. Mildly displaced fracture of the maxillary spine. 2. No other definitive facial fractures are identified. Head CT 12/06/23 17:15 IMPRESSION: 1. No acute intracranial pathology. 2. Senescent changes. All radiology interpretation(s) finalized by discharge Discharge Plan Discharge Patient Disposition: Home Clinical Impression: Laceration, Avulsion of lip Condition: Stable Prescriptions: New amoxicillin-pot clavulanate 875-125 mg tablet 1 tab PO BID 5 Days Qty: 10 0RF No Action duloxetine [Cymbalta] 60 mg capsule,delayed release(DR/EC) 60 mg PO DAILY@09 atorvastatin 40 mg tablet 40 mg PO DAILY@21 duloxetine 30 mg capsule, delayed rel sprinkle 30 mg PO DAILY@09 amlodipine 5 mg tablet 5 mg PO DAILY Qty: 90 0RF tizanidine 2 mg tablet 2 mg PO DAILY@21 PRN (Reason: Muscle Spasm) alprazolam 1 mg tablet 1 mg PO DAILY@21 aspirin 81 mg Tablet,Delayed Release (Dr/Ec) 81 mg PO DAILY@09 levothyroxine 25 mcg tablet 25 mcg PO DAILY@09 metoprolol tartrate 50 mg tablet 50 mg PO DAILY@09 albuterol sulfate 90 mcg/actuation HFA aerosol inhaler 2 inh INHALATION Q4H PRN (Reason: shortness of breath or wheezing) Qty: 6.7 0RF albuterol sulfate 2.5 mg /3 mL (0.083 %) solution for nebulization 2.5 mg inhalation Q4H PRN (Reason: shortness of breath or wheezing) Qty: 90 0RF diclofenac sodium 50 mg tablet,delayed release (DR/EC) 50 mg PO BID Qty: 14 0RF cyclobenzaprine 5 mg Tablet 5 mg PO BID PRN (Reason: Muscle Spasm) pantoprazole 40 mg Tablet,Delayed Release (Dr/Ec) 40 mg PO DAILY Qty: 14 0RF levofloxacin 750 mg Tablet 750 mg PO DAILY@0600 Qty: 4 0RF amoxicillin-pot clavulanate 875-125 mg Tablet 1 tab PO BID Qty: 8 0RF Advair Diskus 250-50 mcg/dose blister with device 1 inh inhalation BID Qty: 60 0RF Spiriva with HandiHaler 18 mcg capsule, w/inhalation device 1 cap inhalation DAILY Qty: 30 0RF Rx Instructions: puncture 1 cap using device; one dose = 2 inhalations Discharge Orders: Discharge ED (Routine); Ordered 12/06/23 Ordered By: Dustin Escalante Referrals: Meghan Holley FNP [Primary Care Provider] - Discharge Diet: Advance as tolerated Discharge Activity: Resume usual activity Patient Instructions: Pain Management Activity Restrictions/Additional Instructions: You have a maxillary fracture that is minimally displaced. He also have a complex lip laceration that needs to be monitored closely. Started antibiotics here in the emergency department and I am going to send you home on a prescription for 5 days. Take these as directed. Follow-up with plastic surgery this week. process manager will assist with referral on Friday. They should reach out to you Friday afternoon. Please return to the emergency department for new concerning or worsening symptoms Coding Level of Care Code ED Bench Lay Out Technician for Tanya Thompson
[2023-12-06] MEDS: lidocaine 1% INJ 10 mL (per mL) INJECTION (19:40)
[2023-12-06] MEDS: amoxicillin-clav 875-125 mg Tablet 1 TAB PO (20:04)
[2023-12-06 20:13] VITALS: BP 119/67; PULSE 87; RESP 16; TEMP 36.9; O2SAT 95
--- NOTE | 2023-12-08 10:31 | DCPLANNER ---
I faxed patients chart and clouded images to [facility] on 12/08/23 at 1026 am. Phone number to this clinic is [phone]. Fax number is: [phone]. Clinic to contact patient for appt.
== END 2023-12-06 20:14 | disposition home or self-care (01) ==
PROVIDERS: Emergency Provider Nurse Practitioner; PCP Nurse Practitioner Family
DX: S01.511A Laceration without foreign body of lip, initial encounter (principal); F17.210 Nicotine dependence, cigarettes, uncomplicated; Z86.73 Personal history of transient ischemic attack (TIA), and cerebral infarction without residual deficits; E11.9 Type 2 diabetes mellitus without complications; E78.5 Hyperlipidemia, unspecified; I10 Essential (primary) hypertension; W06.XXXA Fall from bed, initial encounter; Z23 Encounter for immunization; Z79.82 Long term (current) use of aspirin
CPT/HCPCS: 12013; 70450; 70486; 72125; 90471; 90715; 96374; 99284; J1885

== ENCOUNTER 2025-09-24 18:57 | Emergency (ER) | payer MEDICARE, OTHER, SELFPAY ==
--- OUTSIDE RECORDS SUMMARY | 2025-09-24 19:03 | XMS_ITS | Clinical Summary ---
Author Organization [facility] Address [address] [place] [address] Care Team Providers Care Automobile Washer Steam Name Role Phone Reji Man MD Primary Care Provider + Allergies Active Allergy Reactions Criticality Noted Date Comments Codeine Hallucination Medium 09/20/2009 Medications Metoprolol-[place] chlorothiazide 50-25 mg Oral tablet Take 1 Tab by mouth daily. Active DIAZEPAM ORAL Take by mouth. Active Active Problems No known active problems Family History Medical History Relation Name Comments Colon Cancer Brother Cancer Mother pancreatic Relation Name Status Comments Brother Mother Social History Tobacco Use Types Packs/Day Years Used Date Smoking Tobacco: Every Day Cigarettes 0.5 20 Alcohol Use Standard Drinks/Week Comments No 0 (1 standard drink = 0.6 oz pur e alcohol) Comments Unknown Sex and Gender Information Value Date Recorded Sex Assigned at Not on file Legal Sex Female 6:27 AM DRILL HAND Gender Identity Not on file Sexual Orientation Not on file Last Filed Vital Signs Vital Sign Reading Time Taken Comments Blood Pressure - - Pulse - - Temperature - - Respiratory Rate - - Oxygen Saturation - - Inhaled Oxygen Concentration - - Weight 71.7 kg (158 lb) 09/20/2009 9:37 AM DRILL HAND Height 154.9 cm (5' 1 ) 09/20/2009 9:37 AM DRILL HAND Body Mass Index 29.85 09/20/2009 9:37 AM DRILL HAND Plan of Treatment Health Maintenance Due Date Last Done Comments DTAP/TDAP/TD VACCINES (1 - Tdap) 1969 PNEUMOCOCCAL VACCINE 50+ YEARS (1 of 2 - PCV) 12/18/18 70 BREAST CANCER SCREENING 1990 FIT-DNA Q 3 years 12/19/1995 FIT/FOBT Q 1 year 12/19/1995 Flex Sig/CT Colonography Q 5 years 12/19/1995 ZOSTER VACCINE (1 of 2) 2000 COLORECTAL SCREENING 09/05/2013 09/05/2003 Colorectal Cancer Screening 09/05/2013 OSTEOPOROSIS SCREENING 12/19/2015 INFLUENZA VACCINE (#1) 2025 RSV VACCINE (60+ or ) (1 - 1-dose 75+ series) 2025 Insurance MEDICARE PART A AND B evOLED Care Teams Automobile Washer Steam Relationship Specialty Start Date End Date Reji Man MD [facility] [address] [place] [phone] PCP - General 09/20/09
--- OUTSIDE RECORDS SUMMARY | 2025-09-24 19:03 | XMS_ITS | Encounter Summary ---
Author Organization [facility] Address [address] [place] [address] Care Team Providers Care Home Stager Name Role Phone Reji Man MD Primary Care Provider + Encounter Details Date Type Department Care Team (Latest Contact Info) Description 09/05/2003 Outpatient Historical [facility]- [place] [facility] [facility] [address] [place] [address] Grayson Vang MD [address] [place] [address] SCREENING MAL NEOP-COLON (Primary Dx) Social History Tobacco Use Types Packs/Day Years Used Date Smoking Tobacco: Never Assessed Comments Unknown Sex and Gender Information Value Date Recorded Sex Assigned at Not on file Legal Sex Female 6:27 AM 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
--- OUTSIDE RECORDS SUMMARY | 2025-09-24 19:04 | XMS_ITS | Encounter Summary ---
Author Organization [facility] Address [address] [place] [address] Care Team Providers Care Wireworker Name Role Phone Reji Man MD Primary Care Provider + Encounter Details Date Type Department Care Team (Latest Contact Info) Description 01/20/2003 Outpatient Historical [facility] Lit Buckner MD [address], [place] [id number] HYPERTENSION NOS (Primary Dx); HYPERLIPIDEMIA NEC/NOS Social History Tobacco Use Types Packs/Day Years Used Date Smoking Tobacco: Never Assessed Comments Unknown Sex and Gender Information Value Date Recorded Sex Assigned at Not on file Legal Sex Female 6:27 AM MILIEU COUNSELOR Gender Identity Not on file Sexual Orientation Not on file documented as of this encounter Plan of Treatment Not on file documented as of this encounter Visit Diagnoses Diagnosis Unspecified essential hypertension- Primary Other and unspecified hyperlipidemia documented in this encounter Care Teams Wireworker Relationship Specialty Start Date End Date Reji Man MD [address] [phone] PCP - General 09/20/09 documented as of this encounter
--- OUTSIDE RECORDS SUMMARY | 2025-09-24 19:04 | XMS_ITS | Encounter Summary ---
Author Organization [facility] Address [address] [place] [address] Care Team Providers Care Shipper Name Role Phone Reji Man MD Primary Care Provider + Encounter Details Date Type Department Care Team (Latest Contact Info) Description 12/27/2005 Outpatient Historical [facility] Cardiac Snout Puller [address] [place] [address] Thai Rowe MD [address] [facility] [address] [place] [address] Other Chest Pain (Primary Dx) Social History Tobacco Use Types Packs/Day Years Used Date Smoking Tobacco: Never Assessed Comments Unknown Sex and Gender Information Value Date Recorded Sex Assigned at Not on file Legal Sex Female 6:27 AM WINDOWS SECURITY ENGINEER Gender Identity Not on file Sexual Orientation Not on file documented as of this encounter Plan of Treatment Not on file documented as of this encounter Visit Diagnoses Diagnosis Other chest pain- Primary documented in this encounter Care Teams Shipper Relationship Specialty Start Date End Date Reji Man MD [address] [facility] [address] [place] [address] PCP - General 09/20/09 documented as of this encounter
--- OUTSIDE RECORDS SUMMARY | 2025-09-24 19:04 | XMS_ITS | Encounter Summary ---
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 CAN ROUTER USE MEDICATN Social History Tobacco Use Types Packs/Day Years Used Date Smoking Tobacco: Never Assessed Comments Unknown Sex and Gender Information Value Date Recorded Sex Assigned at Not on file Legal Sex Female 6:27 AM QUILL MACHINE TENDER Gender Identity Not on file Sexual Orientation Not on file documented as of this encounter Plan of Treatment Not on file documented as of this encounter Visit Diagnoses Diagnosis Unspecified essential hypertension- Primary Pure hypercholesterolem Pure hypercholesterolemia Encounter for long-term (current) use of other medications documented in this encounter Care Teams Work Ticket Distributor Relationship Specialty Start Date End Date Reji Man MD [address] [phone] PCP - General 09/20/09 documented as of this encounter
--- OUTSIDE RECORDS SUMMARY | 2025-09-24 19:04 | XMS_ITS | Encounter Summary ---
Author Organization [facility] Address [address] [place] [address] Care Team Providers Care Magazine Publisher Name Role Phone Reji Man MD Primary Care Provider + Encounter Details Date Type Department Care Team (Latest Contact Info) Description 12/29/2002 Outpatient Historical [facility] Lit Buckner MD [address] [place], [place] [id number] HYPERTENSION NOS (Primary Dx); TOBACCO USE DISORDER Social History Tobacco Use Types Packs/Day Years Used Date Smoking Tobacco: Never Assessed Comments Unknown Sex and Gender Information Value Date Recorded Sex Assigned at Not on file Legal Sex Female 6:27 AM CREDIT VERIFIER Gender Identity Not on file Sexual Orientation Not on file documented as of this encounter Plan of Treatment Not on file documented as of this encounter Visit Diagnoses Diagnosis Unspecified essential hypertension- Primary Tobacco use disorder documented in this encounter Care Teams Magazine Publisher Relationship Specialty Start Date End Date Reji Man MD [address] [phone] PCP - General 09/20/09 documented as of this encounter
--- OUTSIDE RECORDS SUMMARY | 2025-09-24 19:04 | XMS_ITS | Data Portability ---
Author Organization Neftali Antonio [facility] Address [address] [address] Assessment Encounter Date Assessment Date Assessment LastModified by Organization Details LastModified Time 12/12/2023 12/12/2023 CCA form completed at today's visit. Not available 12/12/2023 11:47:54 07/21/2024 07/21/2024 Patient has been doing okay for the most part. She has been caring for her who has Parkinson's and it has been more of a struggle recently. Not available 07/21/2024 10:05:50 01/19/2025 01/19/2025 Patient presente d to office today for their Medicare Annual Wellness Visit. Education was provided on healthy nutrition, including a diet rich in fruits and vegetables, minimizing simple carbohydrates, salt, and saturated fats. Encouraged regular cardiovascular exercise such as walking at least 30 minutes daily, 5 times per week. Emphasized preventive health measures and educated pt on fall prevention and community-based lifestyle interventions to help reduce health risks and promote healthy living. CCA form completed at today's visit. Not available 01/20/2025 16:32:55 06/29/2025 06/29/2025 Patient here today for a check-up. Overall she has been doing well. She does not want to have a colonoscopy or mammogram but will get scheduled for an eye exam and LDCT chest. She has some help now with her and that has made life easier. Not available 06/29/2025 14:57:06 Plan of Treatment Reminders Order Date Submit Date Provider Last Modified By Organization Details Last Modified Time Details Appointments None recorded. Lab CMP, serum or plasma 2024 025 [facility] [facility], [address], [address], [place], [address], 5 16:05:13 CBC 2024 025 [facility], [address], [address], [place], [address], 5 15:59:36 microalbumi n/creatinin e, mass ratio, urine 2024 025 [facility], [address] [facility] [address], [place], [address], 5 10:48:35 hemoglobin A1C/hemoglo bin total, QN, blood 2024 025 [facility], [address], [address], [place], [address], 5 16:11:52 TSH, serum or plasma 2024 025 [email or web address] ([facility]), [address] [place], [address], 5 14:57:09 CMP, serum or plasma 2024 025 [facility], [address], [address], [place], [address], 5 16:43:51 lipid panel, blood 2024 025 [facility], [address], [address], [place], [address], 5 16:43:53 CBC 2024 025 [facility], [address], [address], [place], [address], 5 16:16:08 hemoglobin A1C/hemoglo bin total, QN, blood 2024 025 [facility], [address], [address], [place], [address], 5 16:20:36 thyrotropin , QN, serum or plasma 2024 025 [facility], [address], [address], [place], [address], 5 17:25:44 CMP, serum or plasma 2023 024 [facility], [address], [address], [place], [address], 4 15:32:06 lipid panel, blood 2023 024 [facility], [address], [address], [place], [address], 4 15:33:17 CBC 2023 024 [facility], [address], [address], [place], [address], 4 11:21:20 microalbumi n/creatinin e, mass ratio, urine 2023 024 [facility], [address] [facility] [address], [address], [place], [address], 4 03:57:58 HbA1c (hemoglobin A1c), blood 2023 024 [facility] ([facility]), [address] [place], [address], 4 12:15:06 TSH, serum or plasma 2023 024 [facility] ([facility]), [address] [place], [address], 4 11:43:56 HbA1c (hemoglobin A1c), blood 2023 024 [facility] ([facility]), [address] [place], [address], 4 12:51:29 CMP, serum or plasma 2023 024 [facility], [address], [address], 4 13:43:29 CBC 2023 024 [facility], [address] [place] [address] [place], [place], [address], 4 12:36:12 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 Surgeries None recorded. Imaging LDCT, chest, for lung cancer screening 2024 025 [facility], [address] [place], [address], 5 09:10:03 XR, chest, 2 view 2023 024 [facility] ([facility]), [address] [place], [address], 4 18:51:11 Medication Orders prednisone 20 mg tablet 2023 025 [facility], [address], [place], [address], 15:56:09 Augmentin 875 mg-125 mg tablet [email or web address] [facility], [address], [place], [address], 15:55:46 Patient TargetsNo targets recorded. Patient Instructions Encounter Date Encounter Id Patient Instructions Last Modified By Organization Details Last Modified Time 12/12/2023 [id number] Call or return for questions or concerns. Not available 12/12/2023 11:47:36 07/21/2024 [id number] Quitting Tobacco : Care Instructions Not available 07/21/2024 10:15:36 Call or return for questions or concerns. Not available 07/21/2024 10:05:39 01/19/2025 [id number] advance care planning: care instructions Not available 01/20/2025 16:32:56 nutrition for older adults: care instructions Not available 01/20/2025 16:32:56 preventing falls : care instructions Not available 01/20/2025 16:32:56 Learning About Being Physically Active Not available 01/20/2025 16:32:57 Call or return for questions or concerns. Not available 01/20/2025 16:32:31 Discussed and explained advance directives such as standard forms to the patient. Face to face discussion lasted for a duration of ___ minutes. Not available 01/20/2025 16:32:36 Reason for Referral Mdm Sr Referral for Typ e 2 diabetes mellitus without complication Referring Physician: Meghan Pagan, Family Medicine, Encounter Date: 06/29/2025 Results Created Date Observation Date Name Description Value Unit Range Abnormal Flag Note LastModifiedBy Organization Detail LastModifiedTime 12/02/19 24 12/02/2023 TSH, serum or plasm a TSH 5.04 high Not Available [facility] ([facility]) [address] [place], [address], 12/02/2023 08:48:48 12/12/19 24 12/12/2023 CBC WBC 9.8 x10 4.0-10 .5 Not Available [facility] [address] [facility] 1, [place], [address], 12/12/2023 12:36:12 12/12/19 24 12/12/2023 CBC RBC 4.64 x10 3.50-5 .50 Not Available [facility] [address] [facility] 1, [place], [address], 12/12/2023 12:36:12 12/12/19 24 12/12/2023 CBC HGB 14.8 g/dL 12.0-1 6.0 Not Available [facility] [address] [facility] 1, [place], [address], 12/12/2023 12:36:12 12/12/19 24 12/12/2023 CBC HCT 41.7 % 37.0-4 7.0 Not Available [facility] [address] [facility] 1, [place], [address], 12/12/2023 12:36:12 12/12/19 24 12/12/2023 CBC MCV 89.9 fL 80.0-9 9.9 Not Available [facility] [address] [facility] 1, [place], [address], 12/12/2023 12:36:12 12/12/19 24 12/12/2023 CBC MCH 31.9 pg 27.0-3 2.0 Not Available [facility] [address] [facility] 1, [place], [address], 12/12/2023 12:36:12 12/12/19 24 12/12/2023 CBC MCHC 35.4 g/dL 32.0-3 6.0 Not Available [facility] [address] [facility], [place], [address], 12/12/2023 12:36:12 12/12/19 24 12/12/2023 CBC RDW 14.0 % 11.5-1 4.5 Not Available [facility] [address] [facility] [address], [place], [address], 12/12/2023 12:36:12 12/12/19 24 12/12/2023 CBC plt 265.4 x10 140.0- 451.0 Not Available [facility] [address] [facility] [address], [place], [address], 12/12/2023 12:36:12 12/12/19 24 12/12/2023 CBC lymphocytes % 27.1 % 20.0-5 0.0 Not Available [facility] [address] [facility] 1, [place], [address], 12/12/2023 12:36:12 12/12/19 24 12/12/2023 CBC granulcytes % 61.3 % 30.0-7 0.0 Not Available [facility] [address] [facility] [address], [place], [address], 12/12/2023 12:36:12 12/12/19 24 12/12/2023 CBC monocytes % 7.0 % 2.0-10 .0 Not Available [facility] [address] [facility] [address], [place], [address], 12/12/2023 12:36:12 12/12/19 24 12/12/2023 CBC granulcytes# 6.0 x10 Not Vivian ilable [facility] [address] [facility] [address], [place], [address], 12/12/2023 12:36:12 12/12/19 24 12/12/2023 CBC lymphocytes # 2.7 x10 Not Available [facility] [address] [facility], [place], [address], 12/12/2023 12:36:12 12/12/19 24 12/12/2023 CBC monocytes # 0.7 x10 Not [facility] [address] [facility] [address], [place], [address], 12/12/2023 12:36:12 12/12/19 24 12/12/2023 CMP (FEMA LE) glucose 150.0 mg/dL 60.0-9 9.0 high Not Available [facility] [address] [facility], [place], [address], 12/12/2023 13:43:29 12/12/19 24 12/12/2023 CMP (FEMA LE) BUN (blood urea nitrogen) 15.0 mg/dL 10.0-2 6.0 Not Available [facility] [address] [facility], [place], [address], 12/12/2023 13:43:29 12/12/19 24 12/12/2023 CMP (FEMA LE) creatinine (serum) 0.9 mg/dL 0.4-1. 5 Not Available [facility] [address] [facility] 1, [place], [address], 12/12/2023 13:43:29 12/12/19 24 12/12/2023 CMP (FEMA LE) BUN/creatini ne ratio 16.67 ratio Not Available [facility] [address] [facility] 1, [place], [address], 12/12/2023 13:43:29 12/12/19 24 12/12/2023 CMP (FEMA LE) eGFR calculated 65.4 Not Available [facility] [address] [facility], [place], [address], 12/12/2023 13:43:29 12/12/19 24 12/12/2023 CMP (FEMA LE) total protein 8.2 g/dL 6.0-8. 5 Not Available [facility] [address] [facility] 1, [place], [address], 12/12/2023 13:43:29 12/12/19 24 12/12/2023 CMP (FEMA LE) total bilirubin 0.6 mg/dL 0.2-1. 3 Not Available [facility] [address] [facility], [place], [address], 12/12/2023 13:43:29 12/12/19 24 12/12/2023 CMP (FEMA LE) albumin 4.7 g/dL 3.5-5. 5 Not Available [facility] [address] [facility] 1, [place], [address], 12/12/2023 13:43:29 12/12/19 24 12/12/2023 CMP (FEMA LE) globulin 3.5 calc Not Available [facility] [address] [facility] 1, [place], [address], 12/12/2023 13:43:29 12/12/19 24 12/12/2023 CMP (FEMA LE) AST (SGOT) 57.0 U/L 0.0-46 .0 high Not Available [facility] [address] [facility], [place], [address], 12/12/2023 13:43:29 12/12/19 24 12/12/2023 CMP (FEMA LE) altv (SGPT) 36.0 U/L 13.0-6 9.0 normal Not Available [facility] [address] [facility], [place], [address], 12/12/2023 13:43:29 12/12/19 24 12/12/2023 CMP (FEMA LE) A/G ratio 1.3 ratio Not Available [facility] [address] [facility] 1, [place], [address], 12/12/2023 13:43:29 12/12/19 24 12/12/2023 CMP (FEMA LE) ALP phos 56.0 U/L 30.0-1 40.0 normal Not Available [facility] [address] [facility], [place], [address], 12/12/2023 13:43:29 12/12/19 24 12/12/2023 CMP (FEMA LE) calcium 10.0 mg/dL 8.4-10 .5 Not Available [facility] [address] [facility] 1, [place], [address], 12/12/2023 13:43:29 12/12/19 24 12/12/2023 CMP (FEMA LE) sodium 142.0 mmol/ L 136.0- 145.0 Not Available [facility] [address] [facility] 1, [place], [address], 12/12/2023 13:43:29 12/12/19 24 12/12/2023 CMP (FEMA LE) potassium 4.3 mmol/ L 3.5-5. 1 Not Available [facility] [address] [facility] 1, [place], [address], 12/12/2023 13:43:29 12/12/19 24 12/12/2023 CMP (FEMA LE) chloride 107.0 mmol/ L 98.0-1 10.0 normal Not Available [facility] [address] [facility] 1, [place], [address], 12/12/2023 13:43:29 12/12/19 24 12/12/2023 CMP (FEMA LE) C02 28.0 mmol/ L 22.0-3 1.0 Not Available [facility] [address] [facility] 1, [place], [address], 12/12/2023 13:43:29 12/12/19 24 12/12/2023 CMP (FEMA LE) anion gap 7.0 calc Not Available [facility] [address] [facility] 1, [place], [address], 12/12/2023 13:43:29 12/12/19 24 12/12/2023 CMP (FEMA LE) osmolality 296.5 calc Not Available [facility] [address] [address], [place], [address], 12/12/2023 13:43:29 12/12/19 24 12/12/2023 HbA1c (hemo globi n A1c), blood HbA1c 6.5 Not Available [facility] ([facility]) [address] [place], [address], 12/11/2023 19:19:04 07/21/20 24 07/21/2024 CBC WBC 8.9 x10 4.0-10 .5 Not Available [facility] [address] [address], [place], [address], 07/21/2024 11:21:20 07/21/20 24 07/21/2024 CBC RBC 4.91 x10 3.50-5 .50 Not Available [facility] [address] [facility], [place], [address], 07/21/2024 11:21:20 07/21/20 24 07/21/2024 CBC HGB 14.9 g/dL 12.0-1 6.0 Not Available [facility] [address] [address], [place], [address], 07/21/2024 11:21:20 07/21/20 24 07/21/2024 CBC HCT 44.4 % 37.0-4 7.0 Not Available [facility] [address], [place], [address], 07/21/2024 11:21:20 07/21/20 24 07/21/2024 CBC MCV 90.4 fL 80.0-9 9.9 Not Available [facility] [address] [facility] [address], [place], [address], 07/21/2024 11:21:20 07/21/2007/21/2024 CBC MCH 30.3 pg 27.0-3 2.0 Not Available [facility] [address], [place], [address], 07/21/2024 11:21:20 07/21/2007/21/2024 CBC MCHC 33.5 g/dL 32.0-3 6.0 Not Available [facility] [address], [place], [address], 07/21/2024 11:21:20 07/21/2007/21/2024 CBC RDW 13.9 % 11.5-1 4.5 Not Available [facility] [address] [facility] 1, [place], [address], 07/21/2024 11:21:20 07/21/2007/21/2024 CBC plt 268.9 x10 140.0- 451.0 Not Available [facility] [address] [facility] [address], [place], [address], 07/21/2024 11:21:20 07/21/2007/21/2024 CBC lymphocytes % 32.7 % 20.0-5 0.0 Not Available [facility] [address], [place], [address], 07/21/2024 11:21:20 07/21/2007/21/2024 CBC granulcytes % 54.6 % 30.0-7 0.0 Not Available [facility] [address] [facility] Rojas [facility] 1, [place], [address], 07/21/2024 11:21:20 07/21/20 24 07/21/2024 CBC monocytes % 8.4 % 2.0-16 .0 Not Available [facility] [address] [facility] 1, [place], [address], 07/21/2024 11:21:20 07/21/2007/21/2024 CBC granulcytes# 4.9 x10 Not Vivian ilable [facility] [address] [facility], [place], [address], 07/21/2024 11:21:20 07/21/2007/21/2024 CBC lymphocytes # 2.9 x10 Not Available [facility] [address] [facility], [place], [address], 07/21/2024 11:21:20 07/21/2007/21/2024 CBC monocytes # 0.8 x10 Not Avai lable [facility] [address] [address], [place], [address], 07/21/2024 11:21:20 07/21/2007/21/2024 CMP (FEMA LE) glucose 128.0 mg/dL 60.0-9 9.0 high Not Available [facility] [address] [facility], [place], [address], 07/21/2024 15:32:06 07/21/2007/21/2024 CMP (FEMA LE) BUN (blood urea nitrogen) 18.0 mg/dL 10.0-2 6.0 Not Available [facility] [address] [facility], [place], [address], 07/21/2024 15:32:06 07/21/20 24 07/21/2024 CMP (FEMA LE) creatinine (serum) 1.0 mg/dL 0.4-1. 5 Not Available [facility] [address] [facility] 1, [place], [address], 07/21/2024 15:32:06 07/21/20 24 07/21/2024 CMP (FEMA LE) BUN/creatini ne ratio 18.37 ratio Not Available [facility] [address] [facility] [facility] [address] [facility] 1, [place], [address], 07/21/2024 15:32:06 07/21/2007/21/2024 CMP (FEMA LE) eGFR calculated 59.1 Not Available [facility] [address] [facility] [facility] Ro[address] [facility] 1, [place], [address], 07/21/2024 15:32:06 07/21/20 24 07/21/2024 CMP (FEMA LE) total protein 8.0 g/dL 6.0-8. 5 Not Available [facility] [address] [facility] 1, [place], [address], 07/21/2024 15:32:06 07/21/20 24 07/21/2024 CMP (FEMA LE) total bilirubin 0.6 mg/dL 0.2-1. 3 Not Available [facility] [address] [facility] 1, [place], [address], 07/21/2024 15:32:06 07/21/2007/21/2024 CMP (FEMA LE) albumin 4.7 g/dL 3.5-5. 5 Not Available [facility] [address] [facility] 1, [place], [address], 07/21/2024 15:32:06 07/21/20 24 07/21/2024 CMP (FEMA LE) globulin 3.3 calc Not Available [facility] [address] [facility] 1, [place], [address], 07/21/2024 15:32:06 07/21/20 24 07/21/2024 CMP (FEMA LE) AST (SGOT) 52.0 U/L 0.0-46 .0 high Not Available [facility] [address] [facility] 1, [place], [address], 07/21/2024 15:32:06 07/21/2007/21/2024 CMP (FEMA LE) altv (SGPT) 32.0 U/L 13.0-6 9.0 normal Not Available [facility] [address] [facility] 1, [place], [address], 07/21/2024 15:32:06 07/21/20 24 07/21/2024 CMP (FEMA LE) A/G ratio 1.4 ratio Not Available [facility] [address] [facility], [place], [address], 07/21/2024 15:32:06 07/21/20 24 07/21/2024 CMP (FEMA LE) ALP phos 58.0 U/L 30.0-1 40.0 normal Not Available [facility] [address] [facility] 1, [place], [address], 07/21/2024 15:32:06 07/21/20 24 07/21/2024 CMP (FEMA LE) calcium 10.0 mg/dL 8.4-10 .5 Not Available [facility] [address] [facility] 1, [place], [address], 07/21/2024 15:32:06 07/21/20 24 07/21/2024 CMP (FEMA LE) sodium 142.0 mmol/ L 136.0- 145.0 Not Available [facility] [address] [facility] 1, [place], [address], 07/21/2024 15:32:06 07/21/20 24 07/21/2024 CMP (FEMA LE) potassium 4.6 mmol/ L 3.5-5. 1 Not Available [facility] [address] [facility] Ro[address] [facility] 1, [place], [address], 07/21/2024 15:32:06 07/21/2007/21/2024 CMP (FEMA LE) chloride 103.0 mmol/ L 98.0-1 10.0 normal Not Available [facility] [address] [facility] 1, [place], [address], 07/21/2024 15:32:06 07/21/2007/21/2024 CMP (FEMA LE) C02 30.0 mmol/ L 22.0-3 1.0 Not Available [facility] [address] [facility] 1, [place], [address], 07/21/2024 15:32:06 07/21/2007/21/2024 CMP (FEMA LE) anion gap 9.0 calc Not Available [facility] [address] [facility] 1, [place], [address], 07/21/2024 15:32:06 07/21/2007/21/2024 CMP (FEMA LE) osmolality 296.4 calc Not Available [facility] [address] [facility] Rojas [facility] 1, [place], [address], 07/21/2024 15:32:06 07/21/2007/21/2024 LIPID PROFI LE (FEMA LE) cholesterol 196.0 mg/dL 0.0-20 0.0 Not Available [facility] [address] [facility] 1, [place], [address], 07/21/2024 15:33:17 07/21/20 24 07/21/2024 LIPID PROFI LE (FEMA LE) trig 307.0 mg/dL 0.0-15 0.0 high Not Available [facility] [address] [facility] 1, [place], [address], 07/21/2024 15:33:17 07/21/20 24 07/21/2024 LIPID PROFI LE (FEMA LE) HDL - direct 38.0 mg/dL >40.0 low Not Available [facility] [address] [facility] 1, [place], [address], 07/21/2024 15:33:17 07/21/20 24 07/21/2024 LIPID PROFI LE (FEMA LE) VLDL - direct 61.4 mg/dL Not Available [facility] [address] [facility] 1, [place], [address], 07/21/2024 15:33:17 07/21/20 24 07/21/2024 LIPID PROFI LE (FEMA LE) LDL - direct 96.6 mg/dL 0.0-13 0.0 Not Available [facility] [address] [facility] 1, [place], [address], 07/21/2024 15:33:17 07/21/2007/23/2024 ALBUM IN, RANDO M URINE W/CRE ATINI NE creatinine, random urine 117 mg/dL 20-275 normal Not Available [facility] [address] [place], [address], 07/23/2024 03:57:58 07/21/2007/23/2024 ALBUM IN, RANDO M URINE W/CRE ATINI NE albumin, urine 1.6 mg/dL see note: normal Refer ence Range : Refer ence Range Not estab lishe d Not Available [facility] [address] [place], [address], 07/23/2024 03:57:58 07/21/20 24 07/23/2024 ALBUM IN, RANDO M URINE W/CRE ATINI NE albumin/crea tinine ratio, random urine 14 mg/g_ creat <30 normal The ADA defin es abnor malit ies in album in excre tion as follo ws: Album inuri a Categ ory Resul t (mg/g creat inine ) Yohana l to Mildl y incre ased <30 Moder ately incre ased 30-29 9 Sever laurel incre ased > OR = 300 The ADA recom mends that at least two of three speci mens colle cted withi n a 3-6 month perio d be abnor mal befor e consi alexis g a patie nt to be withi n a diagn ostic categ ory. Not Available [employer] [place] [address] [place], [address], 07/23/2024 03:57:58 07/21/20 24 07/21/2024 HbA1c (hemo globi n A1c), blood HbA1c 6.5 Not Available [facility] ([facility]) [address] [place] [address], [id number], 07/21/2024 09:43:36 07/21/20 24 07/21/2024 TSH, serum or plasm a TSH 1.44 uIU/m L 0.49-3 .82 Not Available [facility] ([facility]) [address] [place], [id number], 07/21/2024 09:40:44 01/20/20 25 01/19/2025 CBC WBC 9.0 x10 4.0-10 .5 Not Available [facility] [address] [place] [address], [address], 01/19/2025 16:16:08 01/20/20 25 01/19/2025 CBC RBC 4.56 x10 3.50-5 .50 Not Available [facility] [address], [place], [address], 01/19/2025 16:16:08 01/20/2001/19/2025 CBC HGB 14.5 g/dL 12.0-1 6.0 Not Available [facility] [address] [facility] 1, [place], [address], 01/19/2025 16:16:08 01/20/2001/19/2025 CBC HCT 43.1 % 37.0-4 7.0 Not Available [facility] [address] [facility] 1, [place], [address], 01/19/2025 16:16:08 01/20/2001/19/2025 CBC MCV 94.5 fL 80.0-9 9.9 Not Available [facility] [address] [facility] 1, [place], [address], 01/19/2025 16:16:08 01/20/2001/19/2025 CBC MCH 31.7 pg 27.0-3 2.0 Not Available [facility] [address] [facility] 1, [place], [address], 01/19/2025 16:16:08 01/20/2001/19/2025 CBC MCHC 33.6 g/dL 32.0-3 6.0 Not Available [facility] [address] [facility] 1, [place], [address], 01/19/2025 16:16:08 01/20/2001/19/2025 CBC RDW 13.2 % 11.5-1 4.5 Not Available [facility] [address] [facility] 1, [place], [address], 01/19/2025 16:16:08 01/20/2001/19/2025 CBC plt 194.4 x10 140.0- 451.0 Not Available [facility] [address] [facility] 1, [place], [address], 01/19/2025 16:16:08 01/20/2001/19/2025 CBC lymphocytes % 35.6 % 20.0-5 0.0 Not Available [place] [facility] [address] [facility] 1, [place], [address], 01/19/2025 16:16:08 01/20/20 25 01/19/2025 CBC granulcytes % 54.2 % 30.0-7 0.0 Not Available [facility] [address] [facility] 1, [place], [address], 01/19/2025 16:16:08 01/20/2001/19/2025 CBC monocytes % 6.8 % 2.0-16 .0 Not Available [place] [facility] [address] [facility] 1, [place], [address], 01/19/2025 16:16:08 01/20/2001/19/2025 CBC granulcytes# 4.9 x10 Not Vivian ilable [facility] [address] [facility] 1, [place], [address], 01/19/2025 16:16:08 01/20/2001/19/2025 CBC lymphocytes # 3.2 x10 Not Available [place] [facility] [address] [facility] 1, [place], [address], 01/19/2025 16:16:08 01/20/20 25 01/19/2025 CBC monocytes # 0.6 x10 Not Avai lable [facility] [address] [facility] 1, [place], [address], 01/19/2025 16:16:08 01/20/2001/1901/19/2025 HBA1C hemaglobin A1C 6.3 4.2-6. 5 Not Available [facility] [address] [facility] 1, [place], [address], 01/19/2025 16:20:36 01/20/20 25 01/19/2025 CMP (FEMA LE) glucose 115.0 mg/dL 60.0-9 9.0 high Not Available [facility] [address] [facility] 1, [place], [address], 01/19/2025 16:43:50 01/20/20 25 01/19/2025 CMP (FEMA LE) BUN (blood urea nitrogen) 16.0 mg/dL 10.0-2 6.0 Not Available [facility] [address] [address], [place], [address], 01/19/2025 16:43:50 01/20/20 25 01/19/2025 CMP (FEMA LE) creatinine (serum) 0.8 mg/dL 0.4-1. 5 Not Available [facility] [address] [address], [place], [address], 01/19/2025 16:43:50 01/20/20 25 01/19/2025 CMP (FEMA LE) BUN/creatini ne ratio 20.00 ratio Not Available [facility] [address] [facility] 1, [place], [address], 01/19/2025 16:43:50 01/20/20 25 01/19/2025 CMP (FEMA LE) eGFR calculated 74.5 Not Available [facility] [address] [facility] 1, [place], [address], 01/19/2025 16:43:50 01/20/20 25 01/19/2025 CMP (FEMA LE) total protein 7.8 g/dL 6.0-8. 5 Not Available [facility] [address] [facility], [place], [address], 01/19/2025 16:43:50 01/20/20 25 01/19/2025 CMP (FEMA LE) total bilirubin 0.5 mg/dL 0.2-1. 3 Not Available [facility] [address] [facility] 1, [place], [address], 01/19/2025 16:43:50 01/20/20 25 01/19/2025 CMP (FEMA LE) albumin 4.5 g/dL 3.5-5. 5 Not Available [facility] [address] [facility] 1, [place], [address], 01/19/2025 16:43:50 01/20/20 25 01/19/2025 CMP (FEMA LE) globulin 3.3 calc Not Available [place] [facility] [address] [facility] 1, [place], [address], 01/19/2025 16:43:50 01/20/20 25 01/19/2025 CMP (FEMA LE) AST (SGOT) 46.0 U/L 0.0-46 .0 Not Available [facility] [address] [facility] 1, [place], [address], 01/19/2025 16:43:50 01/20/20 25 01/19/2025 CMP (FEMA LE) altv (SGPT) 36.0 U/L 13.0-6 9.0 normal Not Available [facility] [address] [facility] 1, [place], [address], 01/19/2025 16:43:50 01/20/20 25 01/19/2025 CMP (FEMA LE) A/G ratio 1.4 ratio Not Available [facility] [address] [facility] 1, [place], [address], 01/19/2025 16:43:50 01/20/20 25 01/19/2025 CMP (FEMA LE) ALP phos 55.0 U/L 30.0-1 40.0 normal Not Available [facility] [address] [facility] 1, [place], [address], 01/19/2025 16:43:50 01/20/20 25 01/19/2025 CMP (FEMA LE) calcium 9.8 mg/dL 8.4-10 .5 Not Available [facility] [address] [facility] 1, [place], [address], 01/19/2025 16:43:50 01/20/20 25 01/19/2025 CMP (FEMA LE) sodium 138.0 mmol/ L 136.0- 145.0 Not Available [facility] [address] [facility] 1, [place], [address], 01/19/2025 16:43:50 01/20/20 25 01/19/2025 CMP (FEMA LE) potassium 4.4 mmol/ L 3.5-5. 1 Not Available [facility] [address] [address], [place], [address], 01/19/2025 16:43:50 01/20/20 25 01/19/2025 CMP (FEMA LE) chloride 103.0 mmol/ L 98.0-1 10.0 normal Not Available [facility] [address] [facility] 1, [place], [address], 01/19/2025 16:43:50 01/20/20 25 01/19/2025 CMP (FEMA LE) C02 27.0 mmol/ L 22.0-3 1.0 Not Available [facility] [address] [address], [place], [address], 01/19/2025 16:43:50 01/20/20 25 01/19/2025 CMP (FEMA LE) anion gap 8.0 calc Not Available [facility] [address] [address], [place], [address], 01/19/2025 16:43:50 01/20/20 25 01/19/2025 CMP (FEMA LE) osmolality 287.1 calc Not Available [facility] [address] [address], [place], [address], 01/19/2025 16:43:50 01/20/20 25 01/19/2025 LIPID PROFI LE (FEMA LE) cholesterol 177.0 mg/dL 0.0-20 0.0 Not Available [facility] [address] [facility] 1, [place], [address], 01/19/2025 16:43:53 01/20/20 25 01/19/2025 LIPID PROFI LE (FEMA LE) trig 279.0 mg/dL 0.0-15 0.0 high Not Available [facility] [address] [facility] 1, [place], [address], 01/19/2025 16:43:53 01/20/20 25 01/19/2025 LIPID PROFI LE (FEMA LE) HDL - direct 42.0 mg/dL >40.0 Not Available [facility] [address] [facility] 1, [place], [address], 01/19/2025 16:43:53 01/20/20 25 01/19/2025 LIPID PROFI LE (FEMA LE) VLDL - direct 55.8 mg/dL Not Available [facility] [address] [facility] 1, [place], [address], 01/19/2025 16:43:53 01/20/20 25 01/19/2025 LIPID PROFI LE (FEMA LE) LDL - direct 79.2 mg/dL 0.0-13 0.0 Not Available [facility] [address] [facility] 1, [place], [address], 01/19/2025 16:43:53 01/20/2001/19/2025 TSH TSH 1.40 uIU/m L 0.49-3 .82 Not Available [facility] [address] [facility] 1, [place], [address], 01/19/2025 17:25:44 06/29/2006/29/2025 CBC WBC 9.5 x10 4.0-10 .5 Not Available [facility] [address] [facility] 1, [place], [address], 06/29/2025 15:59:36 06/29/2006/29/2025 CBC RBC 4.61 x10 3.50-5 .50 Not Available [facility] [address] [facility] 1, [place], [address], 06/29/2025 15:59:36 06/29/2006/29/2025 CBC HGB 14.5 g/dL 12.0-1 6.0 Not Available [facility] [address] [facility] 1, [place], [address], 06/29/2025 15:59:36 06/29/2006/29/2025 CBC HCT 44.0 % 37.0-4 7.0 Not Available [facility] [address] [facility] 1, [place], [address], 06/29/2025 15:59:36 06/29/2006/29/2025 CBC MCV 95.5 fL 80.0-9 9.9 Not Available [facility] [address] [facility] 1, [place], [address], 06/29/2025 15:59:36 06/29/2006/29/2025 CBC MCH 31.4 pg 27.0-3 2.0 Not Available [facility] [address] [facility] 1, [place], [address], 06/29/2025 15:59:36 06/29/20 25 06/29/2025 CBC MCHC 32.9 g/dL 32.0-3 6.0 Not Available [facility] [address] [facility] 1, [place], [address], 06/29/2025 15:59:36 06/29/20 25 06/29/2025 CBC RDW 13.0 % 11.5-1 4.5 Not Available [facility] [address] [facility] 1, [place], [address], 06/29/2025 15:59:36 06/29/20 25 06/29/2025 CBC plt 216.3 x10 140.0- 451.0 Not Available [facility] [address] [facility] 1, [place], [address], 06/29/2025 15:59:36 06/29/20 25 06/29/2025 CBC lymphocytes % 30.0 % 20.0-5 0.0 Not Available [facility] [address] [facility] 1, [place], [address], 06/29/2025 15:59:36 06/29/20 25 06/29/2025 CBC granulcytes % 60.5 % 30.0-7 0.0 Not Available [facility] [address] [facility] 1, [place], [address], 06/29/2025 15:59:36 06/29/20 25 06/29/2025 CBC monocytes % 5.5 % 2.0-16 .0 Not Available [place] [facility] [address] [facility] 1, [place], [address], 06/29/2025 15:59:36 06/29/20 25 06/29/2025 CBC granulcytes# 5.8 x10 Not Vivian ilable [facility] [address] [address], [place], [address], 06/29/2025 15:59:36 06/29/20 25 06/29/2025 CBC lymphocytes # 2.9 x10 Not Available [facility] [address] [address], [place], [address], 06/29/2025 15:59:36 06/29/20 25 06/29/2025 CBC monocytes # 0.5 x10 Not Avai lable [facility] [address] [address], [place], [address], 06/29/2025 15:59:36 06/29/20 25 06/29/2025 CMP (FEMA LE) glucose 126.0 mg/dL 60.0-9 9.0 high Not Available [facility] [address] [address], [place], [address], 06/29/2025 16:05:13 06/29/20 25 06/29/2025 CMP (FEMA LE) BUN (blood urea nitrogen) 13.0 mg/dL 10.0-2 6.0 Not Available [facility] [address] [address], [place], [address], 06/29/2025 16:05:13 06/29/20 25 06/29/2025 CMP (FEMA LE) creatinine (serum) 0.9 mg/dL 0.4-1. 5 Not Available [facility] [address] [address], [place], [address], 06/29/2025 16:05:13 06/29/20 25 06/29/2025 CMP (FEMA LE) BUN/creatini ne ratio 14.44 ratio Not Available [place] [facility] [address] [facility] 1, [place], [address], 06/29/2025 16:05:13 06/29/2006/29/2025 CMP (FEMA LE) eGFR calculated 65.1 Not Available [facility] [address] [facility] 1, [place], [address], 06/29/2025 16:05:13 06/29/2006/29/2025 CMP (FEMA LE) total protein 7.6 g/dL 6.0-8. 5 Not Available [facility] [address] [facility] 1, [place], [address], 06/29/2025 16:05:13 06/29/2006/29/2025 CMP (FEMA LE) total bilirubin 0.6 mg/dL 0.2-1. 3 Not Available [facility] [address] [facility] 1, [place], [address], 06/29/2025 16:05:13 06/29/2006/29/2025 CMP (FEMA LE) albumin 4.5 g/dL 3.5-5. 5 Not Available [facility] [address] [facility] 1, [place], [address], 06/29/2025 16:05:13 06/29/2006/29/2025 CMP (FEMA LE) globulin 3.1 calc Not Available [place] [facility] [address] [facility] 1, [place], [address], 06/29/2025 16:05:13 06/29/2006/29/2025 CMP (FEMA LE) AST (SGOT) 55.0 U/L 0.0-46 .0 high Not Available [facility] [address] [facility] 1, [place], [address], 06/29/2025 16:05:13 06/29/20 25 06/29/2025 CMP (FEMA LE) altv (SGPT) 42.0 U/L 13.0-6 9.0 normal Not Available [facility] [address] [facility] 1, [place], [address], 06/29/2025 16:05:13 06/29/2006/29/2025 CMP (FEMA LE) A/G ratio 1.5 ratio Not Available [facility] [address] [facility] 1, [place], [address], 06/29/2025 16:05:13 06/29/2006/29/2025 CMP (FEMA LE) ALP phos 60.0 U/L 30.0-1 40.0 normal Not Available [facility] [address] [facility] 1, [place], [address], 06/29/2025 16:05:13 06/29/2006/29/2025 CMP (FEMA LE) calcium 9.4 mg/dL 8.4-10 .5 Not Available [facility] [address] [facility] 1, [place], [address], 06/29/2025 16:05:13 06/29/2006/29/2025 CMP (FEMA LE) sodium 139.0 mmol/ L 136.0- 145.0 Not Available [facility] [address] [facility] 1, [place], [address], 06/29/2025 16:05:13 06/29/2006/29/2025 CMP (FEMA LE) potassium 4.1 mmol/ L 3.5-5. 1 Not Available [facility] [address] [facility] 1, [place], [address], 06/29/2025 16:05:13 06/29/2006/29/2025 CMP (FEMA LE) chloride 105.0 mmol/ L 98.0-1 10.0 normal Not Available [facility] [address] [facility] 1, [place], [address], 06/29/2025 16:05:13 06/29/20 25 06/29/2025 CMP (FEMA LE) C02 27.0 mmol/ L 22.0-3 1.0 Not Available [facility] [address] [facility] 1, [place], [address], 06/29/2025 16:05:13 06/29/2006/29/2025 CMP (FEMA LE) anion gap 7.0 calc Not Available [facility] [address] [facility], [place], [address], 06/29/2025 16:05:13 06/29/2006/29/2025 CMP (FEMA LE) osmolality 288.6 calc Not Available [facility] [address] [facility] 1, [place], [address], 06/29/2025 16:05:13 06/29/2006/29/2025 HBA1C hemaglobin A1C 6.4 4.2-6. 5 Not Available [facility] [address] [facility], [place], [address], 06/29/2025 16:11:52 06/29/2006/29/2025 TSH TSH 1.07 uIU/m L 0.49-3 .82 Not Available [place] [facility] [address] [facility] 1, [place], [address], 06/29/2025 16:30:41 06/29/20 25 07/01/2025 ALBUM IN, RANDO M URINE W/CRE ATINI NE creatinine, random urine 69 mg/dL 20-275 normal Not Available [facility] [address] [place], [address], 07/01/2025 10:48:35 06/29/2007/01/2025 ALBUM IN, RANDO M URINE W/CRE ATINI NE albumin, urine 1.1 mg/dL see note: normal Refer ence Range : Refer ence Range Not estab lishe d Not Available [facility] [address] , [place], [address], 07/01/2025 10:48:35 06/29/2007/01/2025 ALBUM IN, RANDO M URINE W/CRE ATINI NE albumin/crea tinine ratio, random urine 16 mg/g_ creat <30 normal The ADA defin es abnor malit ies in album in excre tion as follo ws: Album inuri a Categ ory Resul t (mg/g creat inine ) Yohana l to Mildl y incre ased <30 Moder ately incre ased 30-29 9 Sever alurel incre ased > OR = 300 The ADA recom mends that at least two of three speci mens colle cted withi n a 3-6 month perio d be abnor mal befor e consi alexis g a patie nt to be withi n a diagn ostic categ ory. Not Available [facility] [address] [place], [address], 07/01/2025 10:48:35 07/21/2001/02/2025 XR, chest , 2 view No observ ation record ed. [email or web address] [facility] ([facility]) [address] [place] [address], [phone], 01/02/2025 22:37:53 07/22/2007/21/2024 XR, chest , 2 view No observ ation record ed. [email or web address] [facility] ([facility]) [address] [place] [address], [phone], 07/22/2024 17:26:33 Result Notes None recorded. Problems Name Problem SNOMED Code Status Onset Date Resolution Date Notes Provider Name and Address Organization Details Recorded Time Backache 030523669 Completed 201811/09/2018 BACKACHE - Status is Inactive ; Recorded 11/09/19 19 8:26AM by Dale Cohen CMT, Annotati on/Adden dum; Promoted ; acuity set as *; Not Available [facility] 3 03:08:53 Adult health examinat ion Completed 201811/09/2018 ROUTINE GENERAL MEDICAL EXAMINAT ION AT A [facility] - Status is Inactive ; Recorded 11/09/19 19 8:26AM by Dale Cohen CMT, Annotati on/Adden dum; Promoted ; acuity set as *; Not Available [facility] 3 03:08:53 Acute bronchos pasm 63493020978 100 Completed 202004/16/2021 BRONCHOS PASM - Status is Inactive ; Recorded 04/16/20 21 3:15PM by Dale Cohen CMT, Annotati on/Adden dum; Promoted ; acuity set as *; Not Available [facility] 3 03:08:53 Arthropa thy 102049983 Active 2022 DALE carmona [facility] 4 17:09:59 Insomnia 751631102 Active 2022 DALE carmona [facility] 4 17:10:43 Nicotine dependen ce 18041216 Active 2022 DALE carmona [facility] 4 17:10:57 Depressi ve disorder 75170627 Active 2022 ADLE carmona [facility] 4 17:10:10 Gastroes ophageal reflux disease 508871746 Active 2022 DALE carmona [facility] 4 17:10:25 Hyperten sive disorder 05193194 Active 2022 DALE carmona [facility] 4 17:10:34 Hypothyr oidism 30921780 [facility] 17:10:37 Chronic obstruct abby pulmonar y disease 20360736 Active 2022 [facility] 4 17:10:03 Type 2 diabetes mellitus without complica tion 031025382 Active 2022 DALE COHEN [facility] 4 17:11:05 Mixed hyperlip idemia 139692644 Active 2022 [facility] 4 17:10:50 [facility] hyperten gretchen 01950709 Active 2022 [facility] 4 17:10:17 Mixed anxiety and depressi ve disorder 799135646 Active 2022 [facility] 4 17:10:47 Problem Notes None recorded. Procedures Surgical History Date Name Laterality Status Provider Name and Address Organization Details Recorded Time 07/20/20 25 diabetic retinal eye exam completed DALE VICKI [facility] 07/27/2025 15:45:32 07/21/20 24 plain X-ray of chest completed [facility] 07/22/2024 16:12:55 12/06/[address] of cervical spine completed [facility] 12/09/2023 10:50:12 12/06/[address] of face completed DALELUCA COHEN [facility] 12/09/2023 10:52:31 12/06/[address] of head completed [facility] 12/09/2023 10:52:20 07/09/20 23 radiography of hip completed [facility] 07/15/2023 10:41:52 Carpal Tunnel Surgery completed [facility], LNaeemL.CNaeem 12/11/2023 19:16:51 appendectomy completed [facility] 01/19/2025 14:36:12 section completed [facility], PamL.CNaeem 01/19/2025 14:36:25 cholecystostomy completed [facility] 01/19/2025 14:36:39 hysterectomy completed [facility], LNaeemL.CNaeem 01/19/2025 14:36:57 Imaging Results None recorded. Procedure Notes None recorded. Medical Equipment None Reported. Allergies Allergen ID Allergen Name Allergen Category Reaction Reaction Severity Criticality Documentation Date Start Date Code Code System Note Provider Name and Address Organization Details Recorded Time 86163 acetamino phen / hydrocodo ne medicatio n nausea Not available Not available 05/10/2023 13765 2 RxNorm [facility] 4 09:39:25 45332 trazodone hydrochlo ride medicatio n itching Not available Not available 05/10/2023 62150 RxNorm DALE COHEN [facility] 4 09:39:36 554 codeine medicatio n hallucina tions mild low 01/07/2023 2670 RxNorm VICKI MONTES [facility] 3 11:05:47 Medications Name Sig Start Date Stop Date Status Note LastModified by Organization Details LastModified Time amoxicill in 500 mg capsule TAKE 1 CAPSULE BY MOUTH THREE TIMES DAILY UNTIL GONE 01/19 completed Not Available Not Available Not Available atorvasta tin 40 mg tablet Take 1 tablet every day by oral route at bedtime for 90 days. active Not Available Not Available No t Available metformin 500 mg tablet Take 1 tablet by mouth once daily active Not Available Not Available No t Available ipratropi um 0.5 mg-albute rol 3 mg (2.5 mg base)/3 mL nebulizat ion soln Inhale 3 mL 4 times a day by nebuliza tion route as needed. 2022 active Not Available Not Available Not Avai lable albuterol sulfate 2.5 mg/3 mL (0.083 %) solution for nebulizat ion USE 1 VIAL IN NEBULIZE R EVERY 6 HOURS NEEDED active Not Available Not Available No t Available alprazola m 1 mg tablet TAKE 1 TABLET BY MOUTH AT BEDTIME 2024 active Not Available Not Available Not Avai lable prednison e 20 mg tablet TAKE 2 TABLETS BY MOUTH ONCE DAILY FOR 5 DAYS 12/06 completed Not Available Not Available Not Available amlodipin e 5 mg tablet TAKE 1 TABLET BY MOUTH ONCE DAILY FOR 90 DAYS active Not Available Not Available No t Available levothyro xine 25 mcg tablet TAKE 1 TABLET BY MOUTH ONCE DAILY . APPOINTM ENT REQUIRED FOR FUTURE REFILLS 07/29 completed Not Available Not Available Not Available levothyro xine 75 mcg tablet TAKE 1 TABLET BY MOUTH ONCE DAILY active Not Available Not Available No t Available levothyro xine 50 mcg tablet Take 1 tablet every day by oral route for 90 days. 12/04 completed Not Available Not Available Not Available pantopraz ole 40 mg tablet,de layed release TAKE 1 TABLET BY MOUTH ONCE DAILY 01/07 completed Not Available Not Available Not Available metoprolo l tartrate 50 mg tablet TAKE 1 TABLET BY MOUTH ONCE DAILY active Not Available Not Available No t Available omeprazol e 20 mg capsule,d elayed release TAKE 1 CAPSULE BY MOUTH TWICE DAILY active Not Available Not Available No t Available levofloxa armin 750 mg tablet TAKE 1 TABLET BY MOUTH ONCE DAILY AT 6 AM 01/07 completed Not Available Not Available Not Available metformin ER 500 mg tablet,ex tended release 24 hr TAKE 1 TABLET BY MOUTH DAILY active Not Available Not Available No t Available amoxicill in 875 mg-potass ium clavulana te 125 mg tablet TAKE 1 TABLET BY MOUTH EVERY 12 HOURS FOR 10 DAYS 12/06 completed Not Available Not Available Not Available cyclobenz aprine 5 mg tablet Take 1 tablet by mouth twice daily as needed 2024 active Not Available Not Available Not Avai lable duloxetin e 30 mg capsule,d elayed release TAKE 1 CAPSULE BY MOUTH ONCE DAILY active Not Available Not Available No t Available duloxetin e 60 mg capsule,d elayed release TAKE 1 CAPSULE BY MOUTH ONCE DAILY active Not Available Not Available No t Available chlorhexi dine gluconate 0.12 % mouthwash FILL CAP TO FILL LINE AND SWISH FOR 30 SECONDS THEN SPIT, TWICE DAILY 06/29 completed Not Available Not Available Not Available aspirin daily 07/01 completed 0; Recorded 12/10/19 23 5:09PM by Dale Cohen CMT, Office Visit; Not Available Not Available Not Available lisinopri l-hydroch lorothiaz zee two times daily 07/01 completed 86619; Recorded 08/08/20 20 2:28PM by Dale Cohen CMT (Authori zed through EVARISTO Fernando), Refill Request; Refill Quantity : 180; Tablet; Not Available Not Available Not Available alprazola m at bedtime 07/01 completed 9; Recorded 10/29/19 23 2:21PM by Dale Cohen CMT (Authori zed through Abhijit Kramer MD), Refill Request; Refill Quantity : 0; Not Available Not Available Not Available metformin daily 07/09 completed 91525; Recorded 05/08/20 22 12:33PM by Dale Cohen CMT (Authori zed through EVARISTO Fernando), Office Visit; Refill Quantity : 90; Tablet; Not Available Not Available Not Available [facility] Levothyro xine Sodium daily 07/09 completed 39649; Recorded 10/29/19 23 2:19PM by Dale Cohen CMT (Authori zed through EVARISTO Fernando), Refill Request; Refill Quantity : 90; Tablet; Not Available Not Available Not Available donepezil daily 07/[address] Lewis e; 0; Recorded 12/10/19 5:09PM by Dale Cohen CMT, Office Visit; Not Available Not Available Not Available Cymbalta daily 07/01 completed Recorded 11/14/19 11:58AM by Dale Cohen CMT, Historic al Summary; Refill Quantity : 0; Not Available Not Available Not Available Vitals Date Recorded Body height Body mass index (BMI) Body weight Respiratory rate Body temperature Heart rate Oxygen saturation Systolic And Diastolic Provider Name and Address Organization Details Last Updated DateTime 4 152.4 cm 27.9 kg/m2 03111.7 1 g 20 /min 97.3 [degF] 65 /min 93 % 118/60 mm[Hg] Ashia Garcia [facility] 4 17:28:49 Date Recorded Body height Body mass index (BMI) Body weight Oxygen saturation Heart rate Body temperature Systolic And Diastolic Provider Name and Address Organization Details Last Updated DateTime 4 152.4 cm 27.7 kg/m2 18532.1 2 g 97 % 94 /min 98.6 [degF] 152/90 mm[Hg] DALE COHEN [facility] 4 10:41:47 Date Recorded Body height Body mass index (BMI) Body weight Heart rate Oxygen saturation Respiratory rate Systolic And Diastolic Provider Name and Address Organization Details Last Updated DateTime 5 152.4 cm 28.9 kg/m2 85022.6 7 g 78 /min 98 % 18 /min 142/86 mm[Hg] DALE CHOEN [facility] 5 14:32:43 Date Recorded Body height Body mass index (BMI) Body weight Oxygen saturation Heart rate Respiratory rate Systolic And Diastolic Provider Name and Address Organization Details Last Updated DateTime 5 152.4 cm 28.1 kg/m2 12672.3 g 96 % 82 /min 22 /min 144/80 mm[Hg] DALE COHEN [facility] 5 14:16:14 Date Recorded Body height Body mass index (BMI) Body weight Oxygen saturation Heart rate Respiratory rate Body temperature Systolic And Diastolic Provider Name and Address Organization Details Last Updated DateTime 4 152.4 cm 28.7 kg/m2 92431.0 8 g 94 % 80 /min 22 /min 98.1 [degF] 160/88 mm[Hg] DALE COHEN [facility] 4 09:36:23 Social History Question Answer Notes LastModified by Organizat ion Details LastModified Time Tobacco Smoking Status Current Every Day Smoker DALE VICKI [facility] 12/11/2023 19:16:00 What Was The Date Of Your Most Recent Tobacco Screening? 06/29/2025 Information not available 06/29/2025 What Is Your Current Pack Years? 30ormorepack years Information not available 07/21/2024 What Is Your Relationship Status? Niraj [email or web address] Information not available 12/11/2023 At What Age Did You Start Smoking Tobacco? 35 Information not available 07/21/2024 How Much Tobacco Do You Smoke? 0.5 PPD Information not available 07/21/2024 Has Tobacco Cessation Counseling Been Provided? Yes Information not available 07/21/2024 On What Date Was Tobacco Cessation Counseling Provided? 06/29/2025 Information not available 06/29/2025 How Many Years Have You Smoked Tobacco? 38 Information not available 07/21/2024 Sex: Unknown Functional Status Question Answer Note LastModified by Organization D etails LastModified Time Do you or have you ever used any other forms of tobacco or nicotine? No Information not available 07/21/2024 What is your level of alcohol consumption? None Information not available 12/11/2023 Are you able to care for yourself independently? Yes [email or web address] Information not available 12/11/2023 Do you or have you ever used any nicotine-free cigarettes, vape, or chewing tobacco? No Information not available 07/21/2024 Mental Status None recorded. Family History Relationship Description Onset Age of this Age Resolved Age Notes LastModified by Organization Details LastModified Time Mother Diabetes mellitus Not available 19:14:59 Mother Malignant neoplasm of pancreas [email or web address] Not available 19:15:16 Brother Malignant neoplasm of colon [email or web address] Not available 19:15:38 Medical History Condition Response Anxiety Disorder Y Diabetes Y High Cholesterol Y Stroke Y Depression Y COPD Y Gynecological HistoryNo gynecological history recorded. Obstetrics History GPAL:G 0 P 0 0 0 0 Immunizations Vaccine Type Date Status Note Provider Nam e and Address Organization Details Recorded Time Influenza, high-dose, quadrivalent, PF 0 completed MEGHAN PAGAN [address], [address], [facility] 07/09/2023 12:51:09 COVID-19, mRNA, LNP-S, PF, 100 mcg/0.5mL dose or 50 mcg/0.25mL dose 1 completed MEGHAN PAGAN [address], [address], [facility] 07/09/2023 12:51:09 COVID-19, mRNA, LNP-S, PF, 100 mcg/0.5mL dose or 50 mcg/0.25mL dose 1 completed MEGHAN PAGAN [address], [address], [facility] 07/09/2023 12:51:09 COVID-19, mRNA, LNP-S, PF, 100 mcg/0.5mL dose or 50 mcg/0.25mL dose 2 margaret PAGAN [address], [address], [facility] 07/09/2023 12:51:09 COVID-19, mRNA, LNP-S, PF, 100 mcg/0.5mL dose or 50 mcg/0.25mL dose 1 completed MEGHAN PAGAN, [address], [address], [facility] 07/09/2023 12:51:09 pneumococcal polysaccharide PPV23 7 completed MEGHAN PAAGN, [address], [address], [facility] 07/09/2023 12:51:09 Pneumococcal conjugate PCV 13 6 completed MEGHAN PAGAN, [address], [address], [facility] 07/09/2023 12:51:09 zoster live 5 completed MEGHAN PAGAN, [address], [address], [facility] 07/09/2023 12:51:09 Influenza, high-dose, trivalent, PF 6 completed MEGHAN PAGAN, [address], [address], [facility] 07/09/2023 12:51:09 Influenza, split virus, trivalent, preservative 2 completed MEGHAN PAGAN, [address], [address], [facility] 07/09/2023 12:51:09 Influenza, split virus, trivalent, preservative 1 completed MEGHAN PAGAN, [address], [address], [facility] 07/09/2023 12:51:09 Tdap 4 completed EVARISTO MAYA [address] [place] [address], [address], [place] [facility] 07/21/2024 09:52:45 Influenza, adjuvanted, quadrivalent, PF 3 completed DALE carmona [facility] 07/15/2023 16:28:28 Influenza, split virus, trivalent, preservative 4 completed Not Available [facility] 07/15/2023 14:08:54 Past Encounters Encounter ID Performer Location Encounter Start Date Encounter Closed Date Diagnosis/Indication Diagnosis SNOMED-CT Code Diagnosis ICD10 Code Diagnosis IMO Codes Diagnosis Note [id number] EVARISTO MAYA [facility] ([facility]) [address] [place] [id number] 01/07/2023 10:55:09 01/08/2023 18:26:49 Chronic obstructive pulmonary disease 48562178 J44.1 Hypothyroidism 29813721 E03.4 Continue Levothyrox ine Type 2 elo betes mellitus without complication 574126226 E11.9 Continue metformin, checks about once every 3 weeks. Mixed hyperlipidemia 267 097745 E78.2 Continue atrovasati n daily. Essential hypertension 74135258 I10 Continue metoprolol . Tobacco user 001767511 Z 72.0 Down to 5 cigarettes per day. Mixed anxi ety and depressive disorder 647097220 F41.8 Continue with alprazolam at bedtime. [id number] EVARISTO MAYA [facility] ([facility]) [address] [place] [phone] 07/09/2023 11:20:05 07/11/2023 14:41:28 Low back pain 922550499 M54.50 Type 2 elo betes mellitus without complication 194939152 E11.9 Continue metformin, checks about once every 3 weeks. Hypothyroidism 81236036 E03.4 Pain of ri ght hip joint 4632824948 30982 M25.075 [id number] EVARISTO MAYA [facility] ([facility]) [address] [place] [phone] 07/15/2023 14:08:40 07/15/2023 16:48:00 Influenza vaccine needed 3504245523 106 Z23 [id number] TANVIR CARBAJAL [facility] ([facility]) [address] [place] [phone] 12/09/2023 16:57:53 12/09/2023 18:06:59 Laceration of lower lip 725490790 S01.511D Will extend Augmenting BID for 7 additional days. Patient has a follow up with PCP in 3 days and encouraged to keep this appointmen t. Recommend vaseline on lip to keep area moist. If patient develops fever, should return to ED. Patent verbalizes understand ing. [id number] EVARISTO MAYA [facility] ([facility]) [address] [place] [id number] 12/12/2023 10:17:36 12/12/2023 11:49:36 Type 2 diabetes mellitus without complication 706644143 E11.9 Continue metformin, checks about once every 3 weeks. Hypothyroidism 34895033 E03.4 Recent TSH 5.04 Laceration of lower lip 773719641 S01.511D Appt with Dr. Koo on 12/23/23. Hyperlipidemia 04222218 E78.2 Continue atorvastat in. Essential hypertension 10895225 I10 Continue metoprolol . Low back pain 991266773 M54.50 Continue cyclobenza kuldip as needed. Depressive disorder 3548 9007 F32.A Continue Cymbalta. [id number] EVARISTO MAYA [facility] ([facility]) [address] [place] [id number] 07/21/2024 09:24:16 07/21/2024 10:16:44 Diabetes mellitus 17106641 E11.9 Hypothyroidism 43766424 E03.4 Recent TSH 5.04 Essential hypertension 46516703 I10 Continue metoprolol . Screening mammography 24 914122 Z12.31 Nicotine dependence 5629 4008 F17.200 Caregiver stress syndrome 530119919 F43.89 Cares for her with Parkinson' s. Acute exac erbation of chronic obstructive pulmonary disease 542431960 J44.1 Previously saw pulmonolog ist [place] [id number] MEGHAN PAGAN [employer] [facility] ([facility]) [address] [place] [id number] 01/19/2025 14:22:46 01/19/2025 16:12:48 Adult health examination 511015062 Z00.00 Hypothyroidism 00480286 E03.4 Type 2 elo betes mellitus without complication 210251271 E11.9 Essential hypertension 12512151 I10 Continue metoprolol . Chronic ob structive pulmonary disease 98828311 J44.1 J44.9 Albuterol and Ipratropiu m as needed. Mixed hyperlipidemia 267 877642 E78.2 Continue atorvastat in daily. Nicotine dependence 5629 4008 Z72.0 Does not wish to quit. Chronic low back pain 27 0180850 M54.50 Tylenol/Ib uprofen. [id number] EVARISTO MAYA [facility] ([facility]) [address] [place] [id number] 06/29/2025 13:57:51 06/29/2025 14:58:10 Hypothyroidism 60071166 E03.4 Type 2 elo betes mellitus without complication 345989055 E11.9 Essential hypertension 59849236 I10 Continue metoprolol . 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 Mammogram declined 53140 5004 Z53.20 [id number] Discussed with patient the benefits of early detection, the role of screening mammograms , and the risks associated with delaying or refusing screening. She does not wish to schedule an appointmen t for screening at this time. Colon [facility] er screening declined 9501993961 9109 Z53.20 9191415259 Colonoscop ies are done to screen for and prevent colorectal cancer, which is the second leading cause of cancer deaths in men and women. Colonoscop ies can also help identify and treat other conditions in the colon and rectum. The risk of not having a colonoscop y includes increased risk of cancer diagnosis, advanced-s tage cancer at diagnosis, and from colorectal cancer. Other options are available as well including Cologuard and Occult stool testing. These are declined as well. Smokes tobacco daily 449 186782 F17.200 27171233 Does not wish to quit. Health Concerns Section Related Observation LastModified by Organization Detai ls LastModified Time None Recorded Concern Status LastModified by Organization Details LastModified Time None Recorded Advance Directives Directive None Recorded Payers Insurance Date Sequence Insurance Name Policy Number Policy Joel Covered Member ID Joel Member ID Guarantor Name 06/26/2025 [place] - [id number] (MEDICARE) Janene Anne [id number] Janene Anne 06/26/2025 2 [employer] SU[employer]LE[employer]AL - [employer] INSURANCE (MEDICARE SUPPLEMENT) Janene Anne [id number] Janene Anne 07/21/2024 1 [facility] (MEDICARE REPLACEMENT/AD VANTAGE - PPO) [id number] Janene Anne [id number] Janene Anne 07/21/2024 1 [facility] (MEDICARE REPLACEMENT/AD VANTAGE - PPO) [id number] Janene Anne [id number] Janene Anne 06/26/2025 1 [place] Janene Anne [id number] Janene Anne 01/19/2025 2 [employer] - PLAN F (MEDICARE SUPPLEMENT) Janene Anne [id number] Janene Anne Notes Date Note Type Note Provider Name and Address Organization Details Recorded Time 4 text/html Skin LesionReported by PatientHPIFor location, patient reportslip. For quality, patient reportstenderandsore. For severity, patient reportsmild. For duration, patient reports4 days. For timing, patient reportsabrupt. For alleviating factors, patient reportsoral antibiotics.ROS as noted in the HPI Patient is a 72 year old female who presents to the walk in clinic today for a wound re-evaluation. Patient reports she had a fall 3 days ago and was seen in the ED for a complicated lower lip laceration. Patient reports sutures were placed but she was only given 5 days of antibiotics and patient reports concerns for infection today. Reports yellow drainage from the wound site and wanted to have it re-evaluated. Has been taking Augmentin as prescribed but is on the last day of antibiotics today. VAHE BURROUGHS, EVARISTO-C [address] [place] [address], [phone], [facility] 12/14/2023 22:49:11 4 text/html LacerationReported by PatientHPIFor quality, patient reportspainful. For type of trauma, patient reportslaceration. For location, patient reportslips. For severity, patient reportsimproving. For onset of trauma, patient reports7 days. MEGHAN PAGAN, [facility] [address] [place], [address], [facility] 12/12/2023 11:52:41 4 text/html DiabetesReported by PatientHPIFor compliance, patient reportsnoncompliant with home glucose monitoringbut reportscompliant with medicationsandcompliant with follow-up visits. For duration, patient reportschronic. For control, patient reportsusually well controlled,treated with diet and oral medications, andhemoglobin a1c has been less than 7. For associated symptoms, patient reportsno weight loss.Complications and Co-morbiditiesFor chronic complications, patient reportshypertension: yes. CoughReported by PatientHPIFor context, patient reportssmoker. For quality, patient reportsproductive. For severity, patient reportsmoderate. For associated symptoms, patient reportsno fever. HypothyroidReported by PatientHPIFor associated symptoms, patient reportsfatigue. For reason for visit, patient reportstsh check/labs. For duration, patient reports>12 months. MEGHAN PAGAN, [facility] [address] [place], [address], [facility] 07/21/2024 10:17:32 5 text/html Medicare Annual Wellness VisitReported by PatientSocial/Behavioral HistoryFor diet and nutrition, patient reportshealthy diet. For fracture risk, patient reportsno history of fractures.Mental Status:For depression risk, patient reportsno loss of interest in activities,no significant changes in weight,no sleep disturbances or insomnia, andno loss of energy. For orientation, patient reportsno disorientation to time,no disorientation to date, andno disorientation to place. For concentration and memory, patient reportsno decreased concentrating ability,no memory lapses or loss, anddoes not forget words. For speech/motor difficulties, patient reportsno speech difficulties.Functional AbilityFor hearing, patient reportsno loss of hearing. For vision, patient reportsno vision problems. For activities of daily living, patient reportsable to bathe with limited or no assistance,able to contol urination and bowels,able to dress with limited or no assistance,able to feed self with limited or no assistance,able to get out of chair or bed with limited or no assistance,able to groom with limited or no assistance, andable to toilet with limited or no assistance. For instrumental activities of daily living, patient reportsable to do house work with limited or no assistance,able to grocery shop with limited or no assistance,able to manage medications with limited or no assistance,able to manage money with limited or no assistance,able to prepare meals with limited or no assistance, andable to use the phone with limited or no assistance. For falls risk assessment, patient reportsno frequent falls while walkingandno fall in the past year. For home safety, patient reportsno vision or hearing loss while driving. HypothyroidReported by PatientHPIFor reason for visit, patient reportsgeneral check-upandtsh check/labs. For duration, patient reports>12 months. For associated symptoms, patient reportsno weakness,no lightheadedness,no fatigue,no cold intolerance,no weight gain,no pain,no edema,no chest pain, andno palpitations. For treatment, patient reportstaking medication as prescribed. MEGHAN PAGAN, [address], [address], [facility] 01/20/2025 16:34:12 5 text/html Hypertension IM/FMReported by PatientHPIFor self care, patient reportssmoker. For quality, patient reportshere for check-up. For duration, patient reportshtn present for ___ years. For alleviating factors, patient reportsmedication. For associated symptoms, patient reportsno chest pain. HypothyroidReported by PatientHPIFor reason for visit, patient reportsgeneral check-upandtsh check/labs. For duration, patient reports>12 months. For treatment, patient reportstaking medication as prescribedandlast tsh level: 1.40. MEGHAN PAGAN, [address], [address], [facility], [place] 06/29/2025 14:57:33 OBGyn Episode No OBEpisode recorded.
--- OUTSIDE RECORDS SUMMARY | 2025-09-24 19:04 | XMS_ITS | Encounter Summary ---
Author Organization [facility] Address [address] [place] [address] Care Team Providers Care Decal Decorator Name Role Phone Reji Man MD Primary Care Provider + Encounter Details Date Type Department Care Team (Late st Contact Info) Description 01/07/2003 Outpatient Historical [facility] Lit Buckner MD [address] [place] [address] Social History Tobacco Use Types Packs/Day Years Used Date Smoking Tobacco: Never Assessed Comments Unknown Sex and Gender Information Value Date Recorded Sex Assigned at Not on file Legal Sex Female 6:27 AM ALUMINIZER Gender Identity Not on file Sexual Orientation Not on file documented as of this encounter Plan of Treatment Not on file documented as of this encounter Visit Diagnoses Not on filedocumented in this encounter Care Teams Decal Decorator Relationship Specialty Start Date End Date Reji Man MD [address] [id number] PCP - General 09/20/09 documented as of this encounter
--- OUTSIDE RECORDS SUMMARY | 2025-09-24 19:04 | XMS_ITS | Patient Health Record ---
Author Organization [facility] Address [address] [place] [address] Care Team Providers Care Silo Operator Name Role Phone Kishan Meghan JOHNSON Primary Care Provider Coral Reaves Unavailable [phone] Allergies Allergen (clinical drug ingredient) Drug/Non Drug Allergy documented on EMR Reaction Allergy Type Onset Date Status codeine Codeine Unknown Drug Allergy Active Reason For Referral No Information Medications Medication SIG (Take, Route, Frequency, Duration) Notes Start Date End Date Status metFORMIN HCl 500 MG Tablet 1 tablet with a meal Orally Once a day Active Metoprolol Tartrate 50 MG Tablet 1 tablet with food Orally Twice a day Active DULoxetine HCl 30 MG Capsule Delayed Release Particles 1 capsule Orally Once a day 30 mg in AM 60 mg in PM Active ALPRAZolam 1 MG Tablet 1 tablet Orally Twice a day Active Levothyroxine Sodium 25 MCG Tablet 1 tablet in the morning on an empty stomach Orally Once a day Active amLODIPine Besylate 5 MG Tablet 1 tablet Orally Once a day Active Albuterol Sulfate (2.5 MG/3ML) 0.083% Nebulization Solution 3 mL as needed Inhalation every 6 hrs Active Cyclobenzaprine HCl 5 MG Tablet 1 tablet at bedtime as needed Orally Once a day Active Social History Tobacco Use: Social History Observation Description Date Details (start date - stop date) Current Smoker NA - NA Social History Tobacco Use: Social Info Question Answer Notes xTobacco Use/Smoking Are you a current smoker How many cigarettes a day do you smoke? 6-10 Problems Problem Type SNOMED Code ICD Code Onset Dates Problem Status W/U Status Risk Notes Problem Tobacco user (129351041) Cigarette nicotine dependence without complication (F17.210) Active confirmed Problem COPD - Chronic obstructive pulmonary disease (47401142) COPD (chronic obstructive pulmonary disease) (J44.9) Active confirmed Problem Seasonal allergy (310747501) Seasonal allergies (J30.2) Active confirmed Plan Of Treatment No Information Insurance Providers Payer Name Payer Address Payer Phone Subscriber Number Group Number Insured Name Patient Relationship to Insured Coverage Start Date Coverage End Date [place] [address] JACQUELYN REARDON [phone] [id number] Janene Anne Self - patient is the insured [place] [employer] [facility] [address] [place] [phone] [id number] Janene Anne Self - patient is the insured Medical (General) History Medical History History ICD Code Problem:Obesity (disorder) , Status :: A ctive measles mumps chicken pox pneumonia hernia back trouble HTN bronchitis stroke Surgical History Surgery Date(Month/Year) section hysterectomy left knee bilateral hands cholecystectomy bladder surgery Hospitalization History Reason Date(Month/Year) bronchitis 01/02
--- OUTSIDE RECORDS SUMMARY | 2025-09-24 19:04 | XMS_ITS | Encounter Summary ---
Author Organization [facility] Address [address] [place] [address] Care Team Providers Care Color Grinder Name Role Phone Reji Man MD Primary Care Provider + Encounter Details Date Type Department Care Team (Late st Contact Info) Description 02/27/2006 Outpatient Historical [facility] Central [facility] [address] [place] [address] Otto Ponce MD [address] [place] [address] Benign Neoplasm of Skin of Other and Unspecified Parts of Face (Primary Dx) Social History Tobacco Use Types Packs/Day Years Used Date Smoking Tobacco: Never Assessed Comments Unknown Sex and Gender Information Value Date Recorded Sex Assigned at Not on file Legal Sex Female 6:27 AM DIRECTOR OF PEOPLE Gender Identity Not on file Sexual Orientation Not on file documented as of this encounter Plan of Treatment Not on file documented as of this encounter Visit Diagnoses Diagnosis Benign neoplasm of skin of other and unspecified parts of face- Primary documented in this encounter Care Teams Color Grinder Relationship Specialty Start Date End Date Reji Man MD [address] [address] PCP - General 09/20/09 documented as of this encounter
--- OUTSIDE RECORDS SUMMARY | 2025-09-24 19:04 | XMS_ITS | Encounter Summary ---
Author Organization [facility] Address [address] [place] [address] Care Team Providers Care Bilingual Research Interviewer Name Role Phone Reji Man MD Primary Care Provider + Encounter Details Date Type Department Care Team (Latest Contact Info) Description 12/09/2002 Outpatient Historical 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
--- OUTSIDE RECORDS SUMMARY | 2025-09-24 19:04 | XMS_ITS | Encounter Summary ---
Author Organization [facility] Address [address] [place] [address] Care Team Providers Care Plant Control Operator Name Role Phone Reji Man MD Primary Care Provider + Encounter Details Date Type Department Care Team (Latest Contact Info) Description 12/26/2005 Outpatient Historical [facility] Cardiology- [place] [employer] [address] [place] [address] Chandler Maurre MD [address] [facility] [address] [place] [address] Unspecified Essential Hypertension (Primary Dx); Pure Hypercholesterolem; Precordial Pain Social History Tobacco Use Types Packs/Day Years Used Date Smoking Tobacco: Never Assessed Comments Unknown Sex and Gender Information Value Date Recorded Sex Assigned at Not on file Legal Sex Female 6:27 AM BRADDISHER Gender Identity Not on file Sexual Orientation Not on file documented as of this encounter Plan of Treatment Not on file documented as of this encounter Visit Diagnoses Diagnosis Unspecified essential hypertension- Primary Pure hypercholesterolem Pure hypercholesterolemia Precordial pain documented in this encounter Care Teams Plant Control Operator Relationship Specialty Start Date End Date Reji Man MD [address] [facility] [address] [place] [address] PCP - General 09/20/09 documented as of this encounter
--- OUTSIDE RECORDS SUMMARY | 2025-09-24 19:04 | XMS_ITS | Encounter Summary ---
Author Organization [facility] Address [address] [place] [address] Care Team Providers Care Supervisor Fish Bait Processing Name Role Phone Reji Man MD Primary Care Provider + Encounter Details Date Type Department Care Team (Latest Contact Info) Description 09/05/[address] [facility] Endoscopy [address] [place] [address] Grayson Vang MD [address] [facility] [address] [place] [address] SCREENING MAL NEOP-COLON (Primary Dx) Social History Tobacco Use Types Packs/Day Years Used Date Smoking Tobacco: Never Assessed Comments Unknown Sex and Gender Information Value Date Recorded Sex Assigned at Not on file Legal Sex Female 6:27 AM LADLE FILLER Gender Identity Not on file Sexual Orientation Not on file documented as of this encounter Plan of Treatment Not on file documented as of this encounter Visit Diagnoses Diagnosis Special screening for malignant neoplasms, colon- Primary documented in this encounter Care Teams Supervisor Fish Bait Processing Relationship Specialty Start Date End Date Reji Man MD [address] [facility] [address] [place] [address] PCP - General 09/20/09 documented as of this encounter
--- OUTSIDE RECORDS SUMMARY | 2025-09-24 19:04 | XMS_ITS | Encounter Summary ---
Author Organization [facility] Address [address] [place] [address] Care Team Providers Care Clinical Dietician Name Role Phone Reji Man MD Primary Care Provider + Encounter Details Date Type Department Care Team (Late st Contact Info) Description 02/27/[address] [facility] Dermatology- [address] [place] [address] Otto Ponce MD [address] [place] [address] Inflamed Seborr Keratos (Primary Dx); Benign Neoplasm of Skin of Other and Unspecified Parts of Face; Benign Alcides Skin Arm Social History Tobacco Use Types Packs/Day Years Used Date Smoking Tobacco: Never Assessed Comments Unknown Sex and Gender Information Value Date Recorded Sex Assigned at Not on file Legal Sex Female 6:27 AM YARN EXAMINER Gender Identity Not on file Sexual Orientation Not on file documented as of this encounter Plan of Treatment Not on file documented as of this encounter Visit Diagnoses Diagnosis Inflamed seborr keratos- Primary Inflamed seborrheic keratosis Benign neoplasm of skin of other and unspecified parts of face Benign alcides skin arm Benign neoplasm of skin of upper limb, including shoulder documented in this encounter Care Teams Clinical Dietician Relationship Specialty Start Date End Date Reji Man MD [address] [facility] [address] [place] [phone] PCP - General 09/20/09 documented as of this encounter
--- OUTSIDE RECORDS SUMMARY | 2025-09-24 19:04 | XMS_ITS | Encounter Summary ---
Author Organization [facility] Address [address] [place] [address] Care Team Providers Care Electrical Instrument Repairer Name Role Phone Reji Man MD Primary Care Provider + Encounter Details Date Type Department Care Team (Latest Contact Info) Description 07/27/2003 Outpatient Historical [facility] Lit Buckner MD [address] [place], [place] [id number] HYPERTENSION NOS (Primary Dx); TOBACCO USE DISORDER Social History Tobacco Use Types Packs/Day Years Used Date Smoking Tobacco: Never Assessed Comments Unknown Sex and Gender Information Value Date Recorded Sex Assigned at Not on file Legal Sex Female 6:27 AM RESTORATIVE AIDE Gender Identity Not on file Sexual Orientation Not on file documented as of this encounter Plan of Treatment Not on file documented as of this encounter Visit Diagnoses Diagnosis Unspecified essential hypertension- Primary Tobacco use disorder documented in this encounter Care Teams Electrical Instrument Repairer Relationship Specialty Start Date End Date Reji Man MD [address] [phone] PCP - General 09/20/09 documented as of this encounter
--- OUTSIDE RECORDS SUMMARY | 2025-09-24 19:04 | XMS_ITS | Continuity of Care Document ---
Author Organization Neftali Antonio, [facility] ([facility]) Address [address] [facility] [place] [address] Assessment Encounter Date Assessment Date Assessment LastModified by Organization Details LastModified Time 06/29/2025 06/29/2025 Patient here today for a [...] Lab CMP, serum or plasma 2024 025 [facility], [address], [facility], [place], [address], 16:05:13 CBC 2024 025 [facility], [address] [facility], [facility], [place], [address], 15:59:36 microalbumi n/creatinin e, mass ratio, urine 2024 025 Fannect [facility], [address] [place] [address] [address], [address] [place], [address], 10:48:35 hemoglobin A1C/hemoglo bin total, QN, blood 2024 025 JOSE Mazariegos [facility], [address], [address], [place], [address], 16:11:52 TSH, serum or plasma 2024 025 [facility] ([facility]), [address] [facility], [place], [address], 14:57:09 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 Surgeries None recorded. Imaging LDCT, chest, for lung cancer screening 2024 025 [facility], [address] [place], [address], 09:10:03 Medication Orders None recorded. Patient TargetsNo targets recorded. Patient InstructionsNo instructions recorded. Reason for Referral [employer] Specialist Referral for Typ e 2 diabetes mellitus without complication Referring Physician: Meghan Pagan, Family Medicine, Encounter Date: 06/29/2025 Results Created Date Observation Date Name Description Value Unit Range Abnormal Flag Note LastModifiedBy Organization Detail LastModifiedTime 06/29/2006/29/2025 CBC WBC 9.5 x10 4.0-10 .5 Not Available [facility] [address] [facility] [address], [place], [address], 06/29/2025 15:59:36 06/29/20 25 06/29/2025 CBC RBC 4.61 x10 3.50-5 .50 Not Available [facility] [address] [facility] [address], [place], [address], 06/29/2025 15:59:36 06/29/20 25 06/29/2025 CBC HGB 14.5 g/dL 12.0-1 6.0 Not Available [facility] [address] [facility], [place], [address], 06/29/2025 15:59:36 06/29/20 25 06/29/2025 CBC HCT 44.0 % 37.0-4 7.0 Not Available [facility] [address] [facility], [place], [address], 06/29/2025 15:59:36 06/29/20 25 06/29/2025 CBC MCV 95.5 fL 80.0-9 9.9 Not Available [facility] [address] [facility] 1, [place], [address], 06/29/2025 15:59:36 06/29/20 25 06/29/2025 CBC MCH 31.4 pg 27.0-3 2.0 Not Available [facility] [address] [facility], [place], [address], 06/29/2025 15:59:36 06/29/2006/29/2025 CBC MCHC 32.9 g/dL 32.0-3 6.0 Not Available [facility] [address] [facility], [place], [address], 06/29/2025 15:59:36 06/29/2006/29/2025 CBC RDW 13.0 % 11.5-1 4.5 Not Available [facility] [address] [facility], [place], [address], 06/29/2025 15:59:36 06/29/2006/29/2025 CBC plt 216.3 x10 140.0- 451.0 Not Available [facility] [address] [facility], [place], [address], 06/29/2025 15:59:36 06/29/2007 0706/29/2025 CBC lymphocytes % 30.0 % 20.0-5 0.0 Not Available [facility] [address] [facility], [place], [address], 06/29/2025 15:59:36 06/29/20 25 06/29/2025 CBC granulcytes % 60.5 % 30.0-7 0.0 Not Available [facility] [address] [facility], [place], [address], 06/29/2025 15:59:36 06/29/20 25 06/29/2025 CBC monocytes % 5.5 % 2.0-16 .0 Not Available [facility] [address] [facility], [place], [address], 06/29/2025 15:59:36 06/29/20 25 06/29/2025 CBC granulcytes# 5.8 x10 Not Vivian ilable [facility] [address] [address], [place], [address], 06/29/2025 15:59:36 06/29/20 25 06/29/2025 CBC lymphocytes # 2.9 x10 Not Available [facility] [address] [facility], [place], [address], 06/29/2025 15:59:36 06/29/20 25 06/29/2025 CBC monocytes # 0.5 x10 Not Avai lable [facility] [address] [facility], [place], [address], 06/29/2025 15:59:36 06/29/20 25 06/29/2025 CMP (FEMA LE) glucose 126.0 mg/dL 60.0-9 9.0 high Not Available [facility] [address] [facility], [place], [address], 06/29/2025 16:05:13 06/29/20 25 06/29/2025 CMP (FEMA LE) BUN (blood urea nitrogen) 13.0 mg/dL 10.0-2 6.0 Not Available [facility] [address] Yam[address] [facility], [place], [address], 06/29/2025 16:05:13 06/29/2006/29/2025 CMP (FEMA LE) creatinine (serum) 0.9 mg/dL 0.4-1. 5 Not Available [facility] [address] [facility], [place], [address], 06/29/2025 16:05:13 06/29/2006/29/2025 CMP (FEMA LE) BUN/creatini ne ratio 14.44 ratio Not Available [facility] [address] [facility], [place], [address], 06/29/2025 16:05:13 06/29/2006/29/2025 CMP (FEMA LE) eGFR calculated 65.1 Not Available [facility] [address] [facility], [place], [address], 06/29/2025 16:05:13 06/29/2006/29/2025 CMP (FEMA LE) total protein 7.6 g/dL 6.0-8. 5 Not Available [facility] [address] [facility], [place], [address], 06/29/2025 16:05:13 06/29/2006/29/2025 CMP (FEMA LE) total bilirubin 0.6 mg/dL 0.2-1. 3 Not Available [facility] [address] [facility], [place], [address], 06/29/2025 16:05:13 09/17/20 25 06/29/2025 CMP (FEMA LE) albumin 4.5 g/dL 3.5-5. 5 Not Available [facility] [address] [facility], [place], [address], 06/29/2025 16:05:13 06/29/20 25 06/29/2025 CMP (FEMA LE) globulin 3.1 calc Not Available [facility] [address] [facility], [place], [address], 06/29/2025 16:05:13 06/29/20 25 06/29/2025 CMP (FEMA LE) AST (SGOT) 55.0 U/L 0.0-46 .0 high Not Available [facility] [address] [facility], [place], [address], 06/29/2025 16:05:13 06/29/20 25 06/29/2025 CMP (FEMA LE) altv (SGPT) 42.0 U/L 13.0-6 9.0 normal Not Available [facility] [address] [facility], [place], [address], 06/29/2025 16:05:13 06/29/20 25 06/29/2025 CMP (FEMA LE) A/G ratio 1.5 ratio Not Available [facility] [address] [facility] 1, [place], [address], 06/29/2025 16:05:13 06/29/20 25 06/29/2025 CMP (FEMA LE) ALP phos 60.0 U/L 30.0-1 40.0 normal Not Available [facility] [address] [facility], [place], [address], 06/29/2025 16:05:13 06/29/20 25 06/29/2025 CMP (FEMA LE) calcium 9.4 mg/dL 8.4-10 .5 Not Available [facility] [address] [facility], [place], [address], 06/29/2025 16:05:13 06/29/2006/29/2025 CMP (FEMA LE) sodium 139.0 mmol/ L 136.0- 145.0 Not Available [facility] [address] [facility] 1, [place], [address], 06/29/2025 16:05:13 06/29/2006/29/2025 CMP (FEMA LE) potassium 4.1 mmol/ L 3.5-5. 1 Not Available [facility] [address] [facility] 1, [place], [address], 06/29/2025 16:05:13 06/29/2006/29/2025 CMP (FEMA LE) chloride 105.0 mmol/ L 98.0-1 10.0 normal Not Available [facility] [address] [facility] 1, [place], [address], 06/29/2025 16:05:13 06/29/2006/29/2025 CMP (FEMA LE) C02 27.0 mmol/ L 22.0-3 1.0 Not Available [facility] [address] [facility] [address], [place], [address], 06/29/2025 16:05:13 06/29/2006/29/2025 CMP (FEMA LE) anion gap 7.0 calc Not Available [facility] [address] [facility] 1, [place], [address], 06/29/2025 16:05:13 06/29/2006/29/2025 CMP (FEMA LE) osmolality 288.6 calc Not Available [facility] [address] [facility] 1, [place], [address], 06/29/2025 16:05:13 06/29/20 25 06/29/2025 HBA1C hemaglobin A1C 6.4 4.2-6. 5 Not Available [facility] [address] [facility], [place], [address], 06/29/2025 16:11:52 06/29/20 25 06/29/2025 TSH TSH 1.07 uIU/m L 0.49-3 .82 Not Available [facility] [address] [facility], [place], [address], 06/29/2025 16:30:41 06/29/20 25 07/01/2025 ALBUM IN, RANDO M URINE W/CRE ATINI NE creatinine, random urine 69 mg/dL 20-275 normal Not Available [facility] [address] [address] [place], [address], 07/01/2025 10:48:35 06/29/20 25 07/01/2025 ALBUM IN, RANDO M URINE W/CRE ATINI NE albumin, urine 1.1 mg/dL see note: normal Refer ence Range : Refer ence Range Not estab lishe d Not Available [facility] [address] [place], [address], 07/01/2025 10:48:35 06/29/20 25 07/01/2025 ALBUM IN, RANDO M [...] a diagn ostic categ ory. Not Available [facility] [address], [place], [address], 07/01/2025 10:48:35 Result Notes None recorded. Problems Name Problem SNOMED Code Status Onset Date Resolution Date Notes Provider Name and Address Organization Details Recorded Time Backache 926162695 Completed 201811/09/2018 BACKACHE - Status is Inactive ; Recorded 11/09/19 19 8:26AM by Dale Cohen CMT, Annotati on/Adden dum; Promoted ; acuity set as *; Not Available [facility] 3 03:08:53 Adult health examinat ion Completed 201811/09/2018 ROUTINE GENERAL MEDICAL EXAMINAT ION AT A HEALTH CARE FACILITY - Status is Inactive ; Recorded 11/09/19 19 8:26AM by Dale Cohen CMT, Annotati on/Adden dum; Promoted ; acuity set as *; Not Available [facility] 3 03:08:53 Acute bronchos pasm [id number] 100 Completed 202004/16/2021 BRONCHOS PASM - Status is Inactive ; Recorded 04/16/20 21 3:15PM by Dale Cohen CMT, Annotati on/Adden dum; Promoted ; acuity set as *; Not Available [facility] 3 03:08:53 Arthropa thy 216789277 Active 2022 DALE carmona [facility] 4 17:09:59 Insomnia 149322309 Active 2022 DALE carmona [facility] 4 17:10:43 Nicotine dependen ce 85169032 Active 2022 DALE carmona [facility] 4 17:10:57 Depressi ve disorder 29799984 Active 2022 DALE carmona [facility] 4 17:10:10 Gastroes ophageal reflux disease 148034899 Active 2022 DALE carmona [facility] 4 17:10:25 Hyperten sive disorder 07058944 [facility] 17:10:34 Hypothyr oidism 30029331 Active 2022 [facility] 17:10:37 Chronic obstruct abby pulmonar y disease 74214523 Active 2022 [facility] 4 17:10:03 Type 2 diabetes mellitus without complica tion 895307739 Active 2022 [facility] 17:11:05 Mixed hyperlip idemia 235143323 Active 2022 DALE COHEN [facility] 4 17:10:50 [facility] hyperten gretchen 59079886 Active 2022 [facility] 17:10:17 Mixed anxiety and depressi ve disorder 204835937 Active 2022 DALE COHEN [facility] 4 17:10:47 Problem Notes None recorded. Procedures Surgical History Date Name Laterality Status Provider Name and Address Organization Details Recorded Time 07/20/20 25 diabetic retinal eye exam completed DALE COHEN [facility] 07/27/2025 15:45:32 07/21/20 24 plain X-ray of chest completed DALE COHEN [facility] 07/22/2024 16:12:55 12/06/[address] of cervical spine completed DALE COHEN [facility] 12/09/2023 10:50:12 12/06/[address] of face completed [facility] 12/09/2023 10:52:31 12/06/[address] of head completed [facility], LN[facility]em[facility]em 12/09/2023 10:52:20 07/09/20 23 radiography of hip completed [facility], LN[facility]emL.[facility]em 07/15/2023 10:41:52 Carpal Tunnel Surgery completed [facility], PamL.CNaeem 12/11/2023 19:16:51 appendectomy completed [facility], PamL.CNaeem 01/19/2025 14:36:12 section completed [facility], PamL.CNaeem 01/19/2025 14:36:25 cholecystostomy completed [facility] 01/19/2025 14:36:39 hysterectomy completed [facility] 01/19/2025 14:36:57 Imaging Results None recorded. Procedure Notes None recorded. Medical Equipment None Reported. Allergies Allergen ID Allergen Name Allergen Category Reaction Reaction Severity Criticality Documentation Date Start Date Code Code System Note Provider Name and Address Organization Details Recorded Time 78308 acetamino phen / hydrocodo ne medicatio n nausea Not available Not available 05/10/2023 53119 2 RxNorm DALE COHEN [facility] 4 09:39:25 88375 trazodone hydrochlo ride medicatio n itching Not available Not available 05/10/2023 92143 RxNorm DALE COHEN [facility] LNaeemL.[facility]em 4 09:39:36 554 codeine medicatio n hallucina tions mild low 01/07/2023 2670 RxNorm VICKI [facility], Neftali 11:05:47 Medications Name Sig Start Date Stop [...] aspirin daily 07/01 completed 0; Recorded 12/10/19 5:09PM by Dale Cohen CMT, Office Visit; Not Available Not Available Not Available lisinopri l-hydroch lorothiaz zee two times daily 07/01 completed 39820; Recorded 08/08/20 20 2:28PM by Dale Cohen CMT (Authori natanael through EVARISTO Fernando), Refill Request; Refill Quantity : 180; Tablet; Not Available Not Available Not Available alprazola m at bedtime 07/01 completed 9; Recorded 10/29/19 23 2:21PM by Dale Cohen CMT (Authori zed through Abhijit Kramer MD), Refill Request; Refill Quantity : 0; Not Available Not Available Not Available metformin daily 07/09 completed 25218; Recorded 05/08/20 12:33PM by Dale Cohen CMT (Authori natanael through EVARISTO Fernando), Office Visit; Refill Quantity : 90; Tablet; Not Available Not Available Not Available [facility] Levothyro xine Sodium daily 07/09 completed 55837; Recorded 10/29/19 2:19PM by Dale Cohen CMT (Authori natanael through EVARISTO Fernando), Refill Request; Refill Quantity [...] and Address Organization Details Last Updated DateTime 152.4 cm 28.1 kg/m2 48913.3 g 96 % 82 /min 22 /min 144/80 mm[Hg] DALE COHEN [facility] 14:16:14 Social History Question Answer Notes LastModified by Organizat ion Details LastModified Time Tobacco Smoking Status Current Every Day Smoker DALE COHEN [facility] 12/11/2023 19:16:00 What Was The Date Of Your Most Recent Tobacco Screening? 06/29/2025 Information not available 06/29/2025 What Is Your Current Pack Years? [email or web address] years Information not available 07/21/2024 What Is Your Relationship Status? Niraj [email or web address] Information not available 12/11/2023 At What Age [...] is your level of alcohol consumption? None [email or web address] Information not available 12/11/2023 Are you able to care for yourself independently? Yes [email or web address] Information not available 12/11/2023 Do you or have you ever used any nicotine-free cigarettes, vape, or chewing tobacco? No Information not available 07/21/2024 Mental Status None recorded. Family History Relationship Description Onset Age of this Age Resolved Age Notes LastModified by Organization Details LastModified Time Mother Diabetes mellitus [email or web address] Not available 19:14:59 Mother Malignant neoplasm of pancreas [email or web address] Not available 19:15:16 Brother Malignant neoplasm of colon [email or web address] Not available 19:15:38 Medical History Condition Response Anxiety Disorder Y Diabetes Y High Cholesterol Y Stroke Y Depression Y COPD Y Gynecological HistoryNo gynecological history recorded. Obstetrics History GPAL:G 0 P 0 0 0 0 Immunizations Vaccine Type Date Status Note Provider Nam e and Address Organization Details Recorded Time Influenza, high-dose, quadrivalent, PF [address], [address], [facility] 07/09/2023 12:51:09 COVID-19, mRNA, LNP-S, PF, 100 mcg/0.5mL dose or 50 mcg/0.25mL dose 1 completed EVARISTO MAYA [address] [place], [address], [facility] 07/09/2023 12:51:09 COVID-19, mRNA, LNP-S, PF, 100 mcg/0.5mL dose or 50 mcg/0.25mL dose 1 completed EVARISTO MAYA [address] [place], [address], [facility] 07/09/2023 12:51:09 COVID-19, mRNA, LNP-S, PF, 100 mcg/0.5mL dose or 50 mcg/0.25mL dose 2 completed MEGHAN PAGAN, [address], [address], [facility] 07/09/2023 12:51:09 COVID-19, mRNA, LNP-S, PF, 100 mcg/0.5mL dose or 50 mcg/0.25mL dose 1 completed MEGHAN PAGAN, [address], [address], [facility] 07/09/2023 12:51:09 pneumococcal polysaccharide PPV23 7 completed MEGHAN PAGAN, [address], [address], [facility] 07/09/2023 12:51:09 Pneumococcal conjugate PCV 13 6 completed MEGHAN PAGAN, [address], [address], [facility] 07/09/2023 12:51:09 zoster live 5 completed MEGHAN PAGAN, [address], [address], [facility] 07/09/2023 12:51:09 Influenza, high-dose, trivalent, PF 6 completed MEGHAN PAGAN, [address], [address], [facility] 07/09/2023 12:51:09 Influenza, split virus, trivalent, preservative 2 completed MEGHAN LATASHA, [facility] [address] [place], [address], [facility] 07/09/2023 12:51:09 Influenza, split virus, trivalent, preservative 1 completed MEGHAN LATASHA, [facility] [address] [place], [address], [facility] 07/09/2023 12:51:09 Tdap 4 completed MEGHANPatricio JARRETTLATASHA, [facility] [address] [place], [address], [facility] 07/21/2024 09:52:45 Influenza, adjuvanted, quadrivalent, PF 3 completed DALE carmona [facility] 07/15/2023 16:28:28 Influenza, split virus, trivalent, preservative 4 completed Not Available [facility] 07/15/2023 14:08:54 Past Encounters Encounter ID Performer Location Encounter Start Date Encounter Closed Date Diagnosis/Indication Diagnosis SNOMED-CT Code Diagnosis ICD10 Code Diagnosis IMO Codes Diagnosis Note [id number] MEGHAN PAGAN [facility] ([facility]) [address] [place] [address] 06/29/2025 13:57:51 06/29/2025 14:58:10 Hypothyroidism 39720004 E03.4 Type 2 elo betes mellitus without complication 678734903 E11.9 Essential hypertension 15641119 I10 Continue metoprolol . Mixed anxi ety and depressive disorder 960668770 F41.8 Continue with alprazolam at bedtime. Mammogram declined 54073 5004 Z53.20 [id number] Discussed with patient the benefits of early detection, the role of screening mammograms , and the risks associated with delaying or refusing screening. She does not wish to schedule an appointmen t for screening at this time. Colon canc er screening declined [id number] 9109 Z53.20 3646319966 Colonoscop ies are done to screen for [...] declined as well. Smokes tobacco daily 449 809261 F17.200 52801630 Does not wish to quit. Health Concerns Section Related Observation LastModified by Organization Detai ls LastModified Time None Recorded Concern Status LastModified by Organization Details LastModified Time None Recorded Payers Encounter Date Sequence Insurance Name Policy Number Policy Joel Covered Member ID Joel Member ID Guarantor Name 06/29/2025 1 [place] Janene Anne [id number] Janene Anne 06/29/2025 2 [employer] SU[employer]AL - [employer] (MEDICARE SUPPLEMENT) Janene Anne [id number] Janene Anne Notes Date Note Type Note Provider Name and Address Organization Details Recorded Time 06/29/2025 text/html Hypertension IM/FMReported by PatientHPIFor self care, patient reportssmoker. For quality, patient reportshere for check-up. For duration, patient reportshtn present for ___ years. For alleviating factors, patient reportsmedication. For associated symptoms, patient reportsno chest pain. HypothyroidReported by PatientHPIFor reason for visit, patient reportsgeneral check-upandtsh check/labs. For duration, patient reports>12 months. For treatment, patient reportstaking medication as prescribedandlast tsh level: 1.40. MEGHAN PAGAN, [facility] [address] [place], [address], [facility] 06/29/2025 14:57:33 OBGyn Episode No OBEpisode recorded.
--- NOTE | 2025-09-24 19:06 | XRR_ITS ---
PROCEDURE INFORMATION: Exam: XR Chest Exam date and time: 09/24/2025 8:33 PM Age: 74 years old Clinical indication: Pain; Chest pressure; Additional info: Chest pain; Copd exacerbation; SOB TECHNIQUE: Imaging protocol: Radiologic exam of the chest. 3 image(s) are submitted. Views: 1 view. COMPARISON: CR XR chest 2V* [id number] 07/21/2024 9:34 AM FINDINGS: Lungs: Subtle pulmonary infiltrate involving bilateral lung base, more prominent as compared to prior study, could represent pneumonia in the correct clinical setting, especially right lower lobe. No pulmonary consolidation, effusion or pneumothorax seen. Pleural spaces: See Lungs finding. Heart/Mediastinum: Unremarkable. No cardiomegaly. Bones/joints: Unremarkable. XR/XR chest 1V portable [id number] IMPRESSION: Subtle pulmonary infiltrate involving bilateral lung base, more prominent as compared to prior study, could represent pneumonia in the correct clinical setting, especially right lower lobe. No pulmonary consolidation, effusion or pneumothorax seen.
--- NOTE | 2025-09-24 19:06 | ECG_ITS ---
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 Measurements Intervals [place] Rate: 82 P: 65 MT: 163 QRS: 37 QRSD: 74 T: 65 QT: 336 QTc: 394 Interpretive Statements SINUS RHYTHM LOW QRS VOLTAGE IN PRECORDIAL LEADS [QRS DEFLECTION < 1.0 mV IN CHEST LEADS] Compared to ECG 12/17/2022 01:47:38 No significant changes Electronically Signed On 09-25-2025 16:57:44 [employer]LL[employer] WORKER by Edgar Hogue M.D. [email or web address]
[2025-09-24 19:19] VITALS: BP 163/80; PULSE 86; RESP 19; TEMP 38.1; O2SAT 93; BMI 28.7
--- NOTE | 2025-09-24 19:27 | ECG_ITS ---
[employer] Test Date: 2025-09-24 Pat Name: Janene Anne Department: Room: Gender: Female [employer] Person: : 1950 Requested By: Jagdish Barry Order Number: [id number] Gunter MD: Edgar Hogue M.D. 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 [id number] [id number]
[2025-09-24 20:06] LABS: Hematocrit 43.2 % (36-47); Hemoglobin 14.30 g/dL (11.27-16.99); Mean Corpuscular HGB Conc 33.1 g/dL (30-55); Mean Corpuscular Hemoglobin 31.2 pg (27-33); Mean Corpuscular Volume 94.1 fl (85-98); Nucleated Red Blood Cells % 0 %; Platelet Count 202 10^3/cmm (157-399); Red Blood Count 4.59 10^6/uL (3.85-5.65); White Blood Count 12.46 10^3/uL (3.29-11.43)
[2025-09-24 20:42] LABS: Troponin(5th) Baseline 16 ng/L (0-10)
[2025-09-24 20:53] LABS: Alanine Aminotransferase 21 U/L (0-33); Albumin Level 4.5 g/dL (3.5-5.2); Alkaline Phosphatase 56 U/L (35-105); Anion Gap 17.2 (5-19); Aspartate Amino Transferase 46 U/L (0-32); Blood Urea Nitrogen 12 mg/dL (8-23); Calcium 9.7 mg/dL (8.5-10.5); Carbon Dioxide 25 mmol/L (22-29); Chloride 99 mmol/L (98-107); Globulin 3.3 g/dL (1.3-4.6); Glucose 130 mg/dL (65-115); NT Pro B Type Natriuretic Pept 141 pg/mL (0-125); Osmolality Calculated 286 mOsm/kg (285-295); Potassium 4.2 mmol/L (3.5-5.1); Sodium 137 mmol/L (136-145); Total Protein 7.8 g/dL (6.6-8.7)
--- NOTE | 2025-09-24 21:01 | CTR_ITS ---
PROCEDURE INFORMATION: Exam: CT Chest With Contrast; Diagnostic Exam date and time: 09/24/2025 9:26 PM Age: 74 years old Clinical indication: Bloating; Fever and shortness of breath; Prior surgery; Surgery date: 6+ months; Surgery type: Cervical fusion. Gb. Hysterectomy. Csection. SOB with fever and abd distention. History of sbo. ; Additional info: SOB, fever, abd distention, constipation, HX of sbo TECHNIQUE: Imaging protocol: Diagnostic computed tomography of the chest with contrast. Radiation optimization: All CT scans at this facility use at least one of these dose optimization techniques: automated exposure control; mA and/or kV adjustment per patient size (includes targeted exams where dose is matched to clinical indication); or iterative reconstruction. Contrast material: OMNI 350; Contrast volume: 100 ml; Contrast route: INTRAVENOUS (IV); COMPARISON: CT chest wo con [id number] 12/17/2022 11:20 AM RADIATION DOSE METRICS: Total DLP (mGy-cm): 724.38 FINDINGS: Lungs: Breathing artifact limits evaluation of the pulmonary parenchyma. Scattered areas of basilar atelectasis or scarring. No pulmonary consolidation. No pulmonary mass or suspicious pulmonary nodule evaluation limited by breathing artifact. Opacification of right lower lobe bronchi may represent areas of mucous plugging or aspiration. Pleural spaces: No pleural effusion or pneumothorax. Heart: Heart size is within normal limits. There is no pericardial effusion or pericardial thickening. Coronary arteries: No coronary artery calcification. Lymph nodes: Prominent mediastinal lymph nodes. No definitively enlarged lymph nodes. Vasculature: Atherosclerotic calcifications of the aorta are present. No aneurysm is identified. Bones/joints: No acute osseous abnormalities are seen. Soft tissues: The soft tissues are within normal limits. PROCEDURE INFORMATION: Exam: CT Abdomen And Pelvis With Contrast Exam date and time: 09/24/2025 9:26 PM Age: 74 years old Clinical indication: Bloating; Fever and shortness of breath; Prior surgery; Surgery date: 6+ months; Surgery type: Cervical fusion. Gb. Hysterectomy. Csection. SOB with fever and abd distention. History of sbo. ; Additional info: SOB, fever, abd distention, constipation, HX of sbo TECHNIQUE: Imaging protocol: Computed tomography of the abdomen and pelvis with contrast. Radiation optimization: All CT scans at this facility use at least one of these dose optimization techniques: automated exposure control; mA and/or kV adjustment per patient size (includes targeted exams where dose is matched to clinical indication); or iterative reconstruction. Contrast material: OMNI 350; Contrast volume: 100 ml; Contrast route: INTRAVENOUS (IV); COMPARISON: CT abdomen [facility] [id number] 07/08/2022 2:17 PM RADIATION DOSE METRICS: Total DLP (mGy-cm): 724.38 FINDINGS: Liver: Mild undulation and possible nodularity of the liver surface are nonspecific and suggest chronic liver disease, possibly cirrhosis. Gallbladder and biliary ducts: The gallbladder is surgically absent. There is no ductal dilatation. Pancreas: The pancreas is normal. Spleen: The spleen is normal. Adrenal glands: The adrenal glands are normal. Kidneys and ureters: There is normal enhancement of the kidneys. No renal calcifications are identified. There is no hydronephrosis. Stomach and bowel: Mild retained colonic stool. There is no large or small bowel obstruction. There is no evidence of bowel wall thickening. Appendix: A normal appendix is not identified. There is no secondary evidence of acute appendicitis. Intraperitoneal space: No pneumoperitoneum. No other focal inflammatory changes. No free fluid or fluid collection. Retroperitoneal space: Nonspecific areas of increased soft tissue density in the left upper quadrant and trace fluid extending along the retroperitoneal reflection are nonspecific and may reflect edema. There is associated thickening or tracking of fluid along the mesorectal fascia. Vasculature: Atherosclerotic calcifications of the aorta are present. No aneurysm is identified. Lymph nodes: No enlarged lymph nodes are identified. Urinary bladder: The bladder is unremarkable. Reproductive: The uterus is absent. Bones/joints: No acute osseous abnormalities are seen. Soft tissues: The soft tissues are within normal limits. CT/CT chest abdpel w/*[id number] IMPRESSION: 1. Opacification of right lower lobe bronchi may represent areas of mucous plugging or aspiration. No associated consolidation. 2. No other evidence of acute cardiopulmonary disease. IMPRESSION: 1. Nonspecific areas of increased soft tissue density in the left upper quadrant and trace fluid extending along the retroperitoneal reflection are nonspecific and may reflect edema. There is associated thickening or tracking of fluid along the mesorectal fascia. Changes related to pancreatitis contract along this pathway. 2. No other evidence of acute intra-abdominal or pelvic process.
--- NOTE | 2025-09-24 21:06 | W.ED.SOB ---
Documented by User: JACQUELYN Torres 09/25/25 11:12 HPI - SOB/Dyspnea General: Chief Complaint: Shortness of Breath/Dyspnea Stated Complaint: severe SOB cough Time Seen by Provider: 09/24/25 20:34 Source: patient Mode of arrival: ambulatory Limitations: no limitations History of Present Illness: HPI Narrative: Patient is a 74-year-old female with past medical history of type 2 diabetes who presents to the emergency department complaining of shortness of breath and increasing cough for the past 2 days. Also notes a history of COPD and is a current everyday smoker, has been so for 40 years. Notes that she has had a cough productive of sputum and has been wheezing. Notes some chest pain, but notes primarily is pleuritic and worse with her coughing and breathing. Overall has felt weak, but no nausea vomiting or diarrhea. Notes some stomach distention but also believes this is from constipation as she has only had 2 small stools in the past 2 weeks. Has tried [id number] medications but has not gotten much relief. She was mildly hypoxic with triage placed on 1 L, but during my examination she was weaned off of this and maintaining above 90%. She has been notably febrile as well, 100.5 temperature with triage and she is given Tylenol. No other symptoms are reported at this time. She tells me that she is prone to getting a pneumonia and this feels similar. MD elicited complaint: shortness of breath, cough, pain with inspiration and chest pain Pertinent past history: COPD, diabetes, pneumonia and other (Current everyday smoker) Onset (ago): day(s) Associated symptoms: Reports chest pain and fever(s); Deny abdominal pain, lightheadedness, nausea, palpitations or vomiting Related Data Home Medications ?Medication ?Instructions ?Recorded ?Confirmed atorvastatin 40 mg tablet 40 mg PO DAILY@02/15/20 12/20/22 duloxetine 60 mg capsule,delayed 60 mg PO DAILY@02/15/20 12/20/22 release (Cymbalta) duloxetine 30 mg capsule,delayed 30 mg PO DAILY@04/04/20 12/20/22 release sprinkle alprazolam 1 mg tablet 1 mg PO DAILY@09/27/20 12/20/22 aspirin 81 mg tablet,delayed 81 mg PO DAILY@09/27/20 12/20/22 release levothyroxine 25 mcg tablet 25 mcg PO DAILY@09/27/20 12/20/22 metoprolol tartrate 50 mg tablet 50 mg PO DAILY@09/27/20 12/20/22 tizanidine 2 mg tablet 2 mg PO DAILY@21 PRN Muscle Spasm 09/27/20 12/20/22 cyclobenzaprine 5 mg tablet 5 mg PO BID PRN Muscle Spasm 12/17/22 12/20/22 Previous Rx's ?Medication ?Instructions ?Recorded albuterol sulfate 90 mcg/actuation 2 inh inhalation Q4H PRN shortness 09/27/20 aerosol inhaler of breath or wheezing #6.7 grams albuterol sulfate 2.5 mg/3 mL 2.5 mg (3 mL) inhalation Q4H PRN 05/28/21 (0.083 %) solution for nebulization shortness of breath or wheezing #90 mL diclofenac sodium 50 mg 50 mg PO BID #14 tabs 09/09/21 tablet,delayed release amlodipine 5 mg tablet 5 mg PO DAILY #90 tabs 10/30/21 amoxicillin 875 mg-potassium 1 tab PO BID #8 tabs 12/19/22 clavulanate 125 mg tablet fluticasone 250 mcg-salmeterol 50 1 inh inhalation BID #60 ea 12/19/22 mcg/dose blistr powdr for inhalation (Advair Diskus) levofloxacin 750 mg tablet 750 mg PO DAILY@0600 #4 tabs 12/19/22 pantoprazole 40 mg tablet,delayed 40 mg PO DAILY #14 tabs 12/19/22 release tiotropium bromide 18 mcg capsule 1 cap inhalation DAILY #30 12/19/22 with inhalation device (Spiriva inhalations with HandiHaler) doxycycline hyclate 100 mg tablet 100 mg PO BID 7 days #14 tabs 09/24/25 prednisone 10 mg tablets in a dose 10 mg PO DIRECTED #21 ea 09/24/25 pack Allergies Allergy/AdvReac Type Severity Reaction Status Date / Time codeine Allergy Unknown Verified 09/24/25 19:28 Review of Systems General: Reports: 10 or more systems reviewed and unremarkable except in HPI and below Const: Reports: fever(s), fatigue and malaise; Denies: chills Eyes: Denies: change in vision ENMT: Denies: throat pain, ear or mastoid pain or nasal discharge Card: Reports: chest pain and dyspnea on exertion; Denies: palpitations, swelling of feet/ankles or lightheadedness Resp: Reports: dyspnea, productive cough and wheezing GI: Denies: abdominal pain, nausea, vomiting, diarrhea or constipation : Denies: flank pain, difficulty voiding, dysuria or urinary frequency Musc: Denies: neck pain, back pain or joint pain Skin/Breast: Denies: rash Neuro: Denies: headache(s), numbness in extremities or weakness in extremities PFSH ED PFSH: Medical History Urinary retention with incomplete bladder emptying Trigger thumb, right thumb History of TIA (transient ischemic attack) GERD (gastroesophageal reflux disease) DM type 2 (diabetes mellitus, type 2) Hypothyroidism Anxiety Hyperlipidemia Hypertension Small vessel disease, cerebrovascular Mild cognitive impairment with memory loss Aftercare following surgery of the genitourinary system Chest pain Tobacco abuse Hx of dizziness HTN (hypertension) Carotid arterial disease Palpitations Vaginal prolapse Surgical History S/P bladder repair single incision midurethral sling performed on 04/19/[address] Alva at [facility] History of carpal tunnel surgery H/O arthroscopic knee surgery H/O bladder repair surgery H/O section Hx of cholecystectomy Hx of hysterectomy, total H/O neck surgery Family History Daughter No problems noted. Brother Colon cancer, Onset Age: 64 Diabetes Hypertension Mother Diabetes Hypertension Stroke Denies family history of Clotting disorder Hyperlipidemia Anesthesia complication Bleeding disorder Social History Smoking and tobacco/nicotine status: current every day tobacco/nicotine user cigarettes Packs smoked per day: 0.5 Alcohol intake: never Substance/Drug Use: never Lives independently: Yes Marital status: Physical Exam Const: COMMON NORMALS: no acute distress, patient oriented x3 and no limitations GENERAL APPEARANCE: cooperative and well developed ORIENTATION/CONSCIOUSNESS: Yes awake, Yes oriented to person, Yes oriented to place and Yes oriented to time OTHER: Tired appearing but nontoxic HENMT: COMMON NORMALS: normocephalic, atraumatic and hearing grossly normal bilaterally HEAD & SCALP: normocephalic and atraumatic OTHER: Moist oral mucosa Eye: COMMON NORMALS: Equal, round and reactive pupils present, EOMs intact bilaterally and conjunctivae normal CONJUNCTIVA: Yes conjunctivae normal PUPIL: Yes Equal, round and reactive pupils present Neck/C-Spine: COMMON NORMALS: full ROM and supple Resp: OTHER: There is mild diffuse expiratory wheezing throughout all lung moe, however slightly diminished air movement to the right lower lobe. Cardio: COMMON NORMALS: regular rate, regular rhythm, No clicks present (Cardio), No murmurs present (Cardio) and No rub (Cardio) RATE: regular rate RHYTHM: regular rhythm GI: OTHER: There is mild abdominal distention, diffusely tender to palpation. Decreased bowel sounds. Extremity: COMMON NORMALS: normal to inspection, full ROM, capillary refill normal and no pedal edema Neuro: COMMON NORMALS: patient oriented x3, moves all extremities, no focal motor deficits and no sensory deficits noted SENSORIUM/ORIENTATION: Yes oriented to person, Yes oriented to place and Yes oriented to time Skin: COMMON NORMALS: no rashes or lesions noted GENERAL SKIN EXAM: no rashes or lesions noted Course Vital Signs: Vital signs: Vital Signs Temperature 100.5 F H 09/24/25 19:19 Pulse Rate 87 09/24/25 23:38 Respiratory Rate 18 09/24/25 22:56 Blood Pressure 149/68 09/24/25 23:38 Pulse Oximetry 90 09/24/25 23:38 Oxygen Delivery Me thod Room Air 09/24/25 23:30 MDM - SOB/Dyspnea Medical Decision Making Patient presented with shortness of breath and coughing for the past couple days associate with wheezing, cough had been productive as well and she does tell me she is prone to pneumonia. Febrile with triage also placed on 1 L of oxygen due to being in the mid 80s, however after DuoNeb therapy and Solu-Medrol oxygen had brought to above 90% without oxygen and she had noted to me that she felt better. On exam initially there was diffuse expiratory wheezing likely representing reactive airway disease or COPD exacerbation and some decreased air movement in the right lower lobe, where x-ray and CT of the chest showing opacification that likely representing community-acquired pneumonia. With her abdominal distention abdomen CT also ordered there is no other significant concern, had been some soft tissue density left upper quadrant that is nonspecific, she is not tender to the epigastric region and with her reporting decreased bowel movements this is likely constipation and will treat with constipation medications. For the pneumonia, she will be treated with antibiotics and being that she has been in the low 90s and required oxygen initially on arrival I offered her admission but she is stating she would like to do a trial of outpatient therapy and she knows to return if she feels worse. Her delta troponin is negative, BNP not significant elevated did not seem to be fluid overloaded on exam. This is presenting as community-acquired pneumonia explaining the fever and the overall weakness, and she is told to return if she is still feeling worse in the next couple of days. She agrees with this plan at this time, she will take MiraLAX following administration of lactulose mineral oil and mag citrate here and will also return if her abdominal pain worsens or she starts to have any epigastric pain that would resemble any pancreatitis. Lab Data 09/24/25 19:49 09/24/25 19:49 Labs/Radiology: Radiology Impressions Chest X-Ray 09/24/25 19:06 IMPRESSION: Subtle pulmonary infiltrate involving bilateral lung base, more prominent as compared to prior study, could represent pneumonia in the correct clinical setting, especially right lower lobe. No pulmonary consolidation, effusion or pneumothorax seen. Chest/Abdomen/Pelvis CT 09/24/25 21:01 IMPRESSION: 1. Opacification of right lower lobe bronchi may represent areas of mucous plugging or aspiration. No associated consolidation. 2. No other evidence of acute cardiopulmonary disease. IMPRESSION: 1. Nonspecific areas of increased soft tissue density in the left upper quadrant and trace fluid extending along the retroperitoneal reflection are nonspecific and may reflect edema. There is associated thickening or tracking of fluid along the mesorectal fascia. Changes related to pancreatitis contract along this pathway. 2. No other evidence of acute intra-abdominal or pelvic process. Laboratory Results WBC 12.46 10^3/uL (3.29-11.43) H 09/24/25 19:49 RBC 4.59 10^6/uL (3.85-5.65) 09/24/25 19:49 Hgb 14.30 g/dL (11.27-16.99) 09/24/25 19:49 Hct 43.2 % (36-47) 09/24/25 19:49 MCV 94.1 fl (85-98) 09/24/25 19:49 MCH 31.2 pg (27-33) 09/24/25 19:49 MCHC 33.1 g/dL (30-55) 09/24/25 19:49 RDW 13.2 % (12.1-15.1) 09/24/25 19:49 Plt Count 202 10^3/cmm (157-399) 09/24/25 19:49 MPV 9.7 fL (7.4-10.4) 09/24/25 19:49 Neut % (Auto) 62.8 % 09/24/25 19:49 Lymph % (Auto) 24.7 % 09/24/25 19:49 Lander % (Auto) 9.9 % 09/24/25 19:49 Eos % (Auto) 1.5 % 09/24/25 19:49 Baso % (Auto) 0.9 % 09/24/25 19:49 Neut # (Auto) 7.83 10^3/uL (1.8-7.7) H 09/24/25 19:49 Lymph # (Auto) 3.1 10^3/uL (0.8-4.8) 09/24/25 19:49 Lander # (Auto) 1.2 10^3/uL (0.2-0.9) H 09/24/25 19:49 Eos # (Auto) 0.2 10^3/uL (0.0-0.8) 09/24/25 19:49 Baso # (Auto) 0.1 10^3/uL (0.0-0.1) 09/24/25 19:49 Nucleated RBC % (auto) 0 % 09/24/25 19:49 Nucleated RBCs # 0.0 /100WBC 09/24/25 19:49 Sodium 137 mmol/L (136-145) 09/24/25 19:49 Potassium 4.2 mmol/L (3.5-5.1) 09/24/25 19:49 Chloride 99 mmol/L (98-107) 09/24/25 19:49 Carbon Dioxide 25 mmol/L (22-29) 09/24/25 19:49 Anion Gap 17.2 (5-19) 09/24/25 19:49 BUN 12 mg/dL (8-23) 09/24/25 19:49 Creatinine 0.9 mg/dL (0.5-0.9) 09/24/25 19:49 GFR Calculation Not Reportable 09/24/25 19:49 Glucose 130 mg/dL (65-115) H 09/24/25 19:49 Calculated Osmolality 286 mOsm/kg (285-295) 09/24/25 19:49 Lactic Acid 1.1 mmol/L (0.5-2.2) 09/24/25 21:36 Calcium 9.7 mg/dL (8.5-10.5) 09/24/25 19:49 Total Bilirubin 0.8 mg/dL (0.15-1.2) 09/24/25 19:49 AST 46 U/L (0-32) H 09/24/25 19:49 ALT 21 U/L (0-33) 09/24/25 19:49 Alkaline Phosphatase 56 U/L (35-105) 09/24/25 19:49 Troponin T Baseline 16 ng/L (0-10) H 09/24/25 19:49 Troponin T 60 Minute 15.66 ng/L (0-10) H 09/24/25 21:03 Delta Troponin T -0.34 ABS# (0-10) L 09/24/25 21:03 NT-Pro-B Natriuret Pep 141 pg/mL (0-125) H 09/24/25 19:49 Total Protein 7.8 g/dL (6.6-8.7) 09/24/25 19:49 Albumin 4.5 g/dL (3.5-5.2) 09/24/25 19:49 Globulin 3.3 g/dL (1.3-4.6) 09/24/25 19:49 Influenza A (PCR) Negative (Negative) 09/24/25 21:55 Influenza Type B (PCR) Negative (Negative) 09/24/25 21:55 RSV (PCR) Negative (Negative) 09/24/25 21:55 SARS-CoV-2 (PCR) Negative (Negative) 09/24/25 21:55 All radiology interpretation(s) finalized by discharge Discharge Plan Discharge Patient Disposition: Home Clinical Impression: COPD exacerbation Pneumonia Qualifiers: Pneumonia type: due to unspecified organism Laterality: right Lung location: lower lobe of lung Qualified Code(s): J18.9 - Pneumonia, unspecified organism Constipation Qualifiers: Constipation type: unspecified constipation type Qualified Code(s): K59.00 - Constipation, unspecified Condition: Stable Prescriptions: New prednisone 10 mg tablets,dose pack 10 mg PO DIRECTED Qty: 21 0RF Rx Instructions: see taper instructions 6 tablets on day 1, 5 tablets on day 2, 4 tablets on day 3, 3 tablets on day 4, 2 tablets on day 5, and 1 tablet a day 6. P.o. doxycycline hyclate 100 mg tablet 100 mg PO BID 7 Days Qty: 14 0RF No Action duloxetine [Cymbalta] 60 mg capsule,delayed release(DR/EC) 60 mg PO DAILY@09 atorvastatin 40 mg tablet 40 mg PO DAILY@21 duloxetine 30 mg capsule, delayed rel sprinkle 30 mg PO DAILY@09 amlodipine 5 mg tablet 5 mg PO DAILY Qty: 90 0RF tizanidine 2 mg tablet 2 mg PO DAILY@21 PRN (Reason: Muscle Spasm) alprazolam 1 mg tablet 1 mg PO DAILY@21 aspirin 81 mg Tablet,Delayed Release (Dr/Ec) 81 mg PO DAILY@09 levothyroxine 25 mcg tablet 25 mcg PO DAILY@09 metoprolol tartrate 50 mg tablet 50 mg PO DAILY@09 albuterol sulfate 90 mcg/actuation HFA aerosol inhaler 2 inh INHALATION Q4H PRN (Reason: shortness of breath or wheezing) Qty: 6.7 0RF albuterol sulfate 2.5 mg /3 mL (0.083 %) solution for nebulization 2.5 mg inhalation Q4H PRN (Reason: shortness of breath or wheezing) Qty: 90 0RF diclofenac sodium 50 mg tablet,delayed release (DR/EC) 50 mg PO BID Qty: 14 0RF cyclobenzaprine 5 mg Tablet 5 mg PO BID PRN (Reason: Muscle Spasm) pantoprazole 40 mg Tablet,Delayed Release (Dr/Ec) 40 mg PO DAILY Qty: 14 0RF levofloxacin 750 mg Tablet 750 mg PO DAILY@0600 Qty: 4 0RF amoxicillin-pot clavulanate 875-125 mg Tablet 1 tab PO BID Qty: 8 0RF Advair Diskus 250-50 mcg/dose blister with device 1 inh inhalation BID Qty: 60 0RF Spiriva with HandiHaler 18 mcg capsule, w/inhalation device 1 cap inhalation DAILY Qty: 30 0RF Rx Instructions: puncture 1 cap using device; one dose = 2 inhalations Discharge Orders: Discharge ED (Routine); Ordered 09/24/25 Ordered By: Thai Delacruz Referrals: Meghan Holley FNP [Primary Care Provider, Unknown] Patient Instructions: Patient Portal & Jessica Instructions Activity Restrictions/Additional Instructions: Discharge Instructions Diagnosis: You are being discharged with a diagnosis of right lower lobe pneumonia. You also have chronic obstructive pulmonary disease (COPD), which is a lung condition that makes it harder to breathe. Medications: Doxycycline - Take 100 mg by mouth twice daily for 7 days to treat your pneumonia. Take this medication with a full glass of water and avoid lying down for at least 30 minutes after taking it to prevent irritation of your esophagus (food pipe). Complete the full course even if you start feeling better. Prednisone taper - This steroid medication helps reduce inflammation in your lungs. Take as directed: - Days 1-5: 40 mg once daily - Then stop This 5-day course is recommended for COPD exacerbations and helps improve breathing and recovery. Continue your regular breathing treatments as prescribed for your COPD. Use your short-acting inhalers (rescue inhalers) more frequently if you experience increased shortness of breath. Warning Signs - Call Your Doctor or Go to the Emergency Room If You Experience: - Worsening shortness of breath or breathing difficulty at rest that does not improve with your rescue inhaler - Fever (temperature above 100.4?F) - Chest pain - Confusion or changes in mental status - Swelling in your legs or ankles - Coughing up blood - Inability to eat or drink Constipation Management: To help with constipation at home: - Drink plenty of fluids (at least 6-8 glasses of water daily) - Increase fiber in your diet by eating more fruits, vegetables, and whole grains - Stay as active as possible - even short walks can help - Consider an tygk-yjc-zpsnjdx stool softener (such as docusate) or gentle laxative if needed - Avoid straining during bowel movements General Instructions: - Rest and allow your body to recover - Avoid smoking and secondhand smoke, as this worsens COPD and slows healing from pneumonia - Wash your hands frequently to prevent spreading infection - Get adequate sleep Follow-up: Schedule a follow-up appointment with your primary care doctor within 1-2 weeks after discharge to ensure your pneumonia is improving and your COPD remains stable. Questions? If you have any questions or concerns about your medications or symptoms, contact your doctor's office. Print Language: Iraqi Coding Level of Care Code ED Repair Order Clerk for Chg Fwd Documented by User: Jagdish Mcclain DO 09/25/25 17:03 HPI - SOB/Dyspnea General: Chief Complaint: Shortness of Breath/Dyspnea Stated Complaint: severe SOB cough Time Seen by Provider: 09/24/25 20:34 Related Data Home Medications ?Medication ?Instructions ?Recorded ?Confirmed atorvastatin 40 mg tablet 40 mg PO DAILY@02/15/20 12/20/22 duloxetine 60 mg capsule,delayed 60 mg PO DAILY@02/15/20 12/20/22 release (Cymbalta) duloxetine 30 mg capsule,delayed 30 mg PO DAILY@04/04/20 12/20/22 release sprinkle alprazolam 1 mg tablet 1 mg PO DAILY@09/27/20 12/20/22 aspirin 81 mg tablet,delayed 81 mg PO DAILY@09/27/20 12/20/22 release levothyroxine 25 mcg tablet 25 mcg PO DAILY@09/27/20 12/20/22 metoprolol tartrate 50 mg tablet 50 mg PO DAILY@09/27/20 12/20/22 tizanidine 2 mg tablet 2 mg PO DAILY@ PRN Muscle Spasm 09/27/20 12/20/22 cyclobenzaprine 5 mg tablet 5 mg PO BID PRN Muscle Spasm 12/17/22 12/20/22 Previous Rx's ?Medication ?Instructions ?Recorded albuterol sulfate 90 mcg/actuation 2 inh inhalation Q4H PRN shortness 09/27/20 aerosol inhaler of breath or wheezing #6.7 grams albuterol sulfate 2.5 mg/3 mL 2.5 mg (3 mL) inhalation Q4H PRN 05/28/21 (0.083 %) solution for nebulization shortness of breath or wheezing #90 mL diclofenac sodium 50 mg 50 mg PO BID #14 tabs 09/09/21 tablet,delayed release amlodipine 5 mg tablet 5 mg PO DAILY #90 tabs 10/30/21 amoxicillin 875 mg-potassium 1 tab PO BID #8 tabs 12/19/22 clavulanate 125 mg tablet fluticasone 250 mcg-salmeterol 50 1 inh inhalation BID #60 ea 12/19/22 mcg/dose blistr powdr for inhalation (Advair Diskus) levofloxacin 750 mg tablet 750 mg PO DAILY@0600 #4 tabs 12/19/22 pantoprazole 40 mg tablet,delayed 40 mg PO DAILY #14 tabs 12/19/22 release tiotropium bromide 18 mcg capsule 1 cap inhalation DAILY #30 12/19/22 with inhalation device (Spiriva inhalations with HandiHaler) doxycycline hyclate 100 mg tablet 100 mg PO BID 7 days #14 tabs 09/24/25 prednisone 10 mg tablets in a dose 10 mg PO DIRECTED #21 ea 09/24/25 pack Allergies Allergy/AdvReac Type Severity Reaction Status Date / Time codeine Allergy Unknown Verified 09/24/25 19:28 PFSH ED PFSH: Medical History Urinary retention with incomplete bladder emptying Trigger thumb, right thumb History of TIA (transient ischemic attack) GERD (gastroesophageal reflux disease) DM type 2 (diabetes mellitus, type 2) Hypothyroidism Anxiety Hyperlipidemia Hypertension Small vessel disease, cerebrovascular Mild cognitive impairment with memory loss Aftercare following surgery of the genitourinary system Chest pain Tobacco abuse Hx of dizziness HTN (hypertension) Carotid arterial disease Palpitations Vaginal prolapse Surgical History S/P bladder repair single incision midurethral sling performed on 04/19/[address] Alva at [facility] History of carpal tunnel surgery H/O arthroscopic knee surgery H/O bladder repair surgery H/O section Hx of cholecystectomy Hx of hysterectomy, total H/O neck surgery Family History Daughter No problems noted. Brother Colon cancer, Onset Age: 64 Diabetes Hypertension Mother Diabetes Hypertension Stroke Denies family history of Clotting disorder Hyperlipidemia Anesthesia complication Bleeding disorder Social History Smoking and tobacco/nicotine status: current every day tobacco/nicotine user cigarettes Packs smoked per day: 0.5 Alcohol intake: never Substance/Drug Use: never Lives independently: Yes Marital status: Course Vital Signs: Vital signs: Vital Signs Temperature 100.5 F H 09/24/25 19:19 Pulse Rate 87 09/24/25 23:38 Respiratory Rate 18 09/24/25 22:56 Blood Pressure 149/68 09/24/25 23:38 Pulse Oximetry 90 09/24/25 23:38 Oxygen Delivery Me thod Room Air 09/24/25 23:30 MDM - SOB/Dyspnea Medical Decision Making Patient presented with shortness of breath and coughing for the past couple days associate with wheezing, cough had been productive as well and she does tell me she is prone to pneumonia. Febrile with triage also placed on 1 L of oxygen due to being in the mid 80s, however after DuoNeb therapy and Solu-Medrol oxygen had brought to above 90% without oxygen and she had noted to me that she felt better. On exam initially there was diffuse expiratory wheezing likely representing reactive airway disease or COPD exacerbation and some decreased air movement in the right lower lobe, where x-ray and CT of the chest showing opacification that likely representing community-acquired pneumonia. With her abdominal distention abdomen CT also ordered there is no other significant concern, had been some soft tissue density left upper quadrant that is nonspecific, she is not tender to the epigastric region and with her reporting decreased bowel movements this is likely constipation and will treat with constipation medications. For the pneumonia, she will be treated with antibiotics and being that she has been in the low 90s and required oxygen initially on arrival I offered her admission but she is stating she would like to do a trial of outpatient therapy and she knows to return if she feels worse. Her delta troponin is negative, BNP not significant elevated did not seem to be fluid overloaded on exam. This is presenting as community-acquired pneumonia explaining the fever and the overall weakness, and she is told to return if she is still feeling worse in the next couple of days. She agrees with this plan at this time, she will take MiraLAX following administration of lactulose mineral oil and mag citrate here and will also return if her abdominal pain worsens or she starts to have any epigastric pain that would resemble any pancreatitis. This patient was originally seen by Mr. Jayme PA-C. I agree with his history, evaluation and management. Lab Data 09/24/25 19:49 09/24/25 19:49 Labs/Radiology: Radiology Impressions Chest X-Ray 09/24/25 19:06 IMPRESSION: Subtle pulmonary infiltrate involving bilateral lung base, more prominent as compared to prior study, could represent pneumonia in the correct clinical setting, especially right lower lobe. No pulmonary consolidation, effusion or pneumothorax seen. Chest/Abdomen/Pelvis CT 09/24/25 21:01 IMPRESSION: 1. Opacification of right lower lobe bronchi may represent areas of mucous plugging or aspiration. No associated consolidation. 2. No other evidence of acute cardiopulmonary disease. IMPRESSION: 1. Nonspecific areas of increased soft tissue density in the left upper quadrant and trace fluid extending along the retroperitoneal reflection are nonspecific and may reflect edema. There is associated thickening or tracking of fluid along the mesorectal fascia. Changes related to pancreatitis contract along this pathway. 2. No other evidence of acute intra-abdominal or pelvic process. Laboratory Results WBC 12.46 10^3/uL (3.29-11.43) H 09/24/25 19:49 RBC 4.59 10^6/uL (3.85-5.65) 09/24/25 19:49 Hgb 14.30 g/dL (11.27-16.99) 09/24/25 19:49 Hct 43.2 % (36-47) 09/24/25 19:49 MCV 94.1 fl (85-98) 09/24/25 19:49 MCH 31.2 pg (27-33) 09/24/25 19:49 MCHC 33.1 g/dL (30-55) 09/24/25 19:49 RDW 13.2 % (12.1-15.1) 09/24/25 19:49 Plt Count 202 10^3/cmm (157-399) 09/24/25 19:49 MPV 9.7 fL (7.4-10.4) 09/24/25 19:49 Neut % (Auto) 62.8 % 09/24/25 19:49 Lymph % (Auto) 24.7 % 09/24/25 19:49 Lander % (Auto) 9.9 % 09/24/25 19:49 Eos % (Auto) 1.5 % 09/24/25 19:49 Baso % (Auto) 0.9 % 09/24/25 19:49 Neut # (Auto) 7.83 10^3/uL (1.8-7.7) H 09/24/25 19:49 Lymph # (Auto) 3.1 10^3/uL (0.8-4.8) 09/24/25 19:49 Lander # (Auto) 1.2 10^3/uL (0.2-0.9) H 09/24/25 19:49 Eos # (Auto) 0.2 10^3/uL (0.0-0.8) 09/24/25 19:49 Baso # (Auto) 0.1 10^3/uL (0.0-0.1) 09/24/25 19:49 Nucleated RBC % (auto) 0 % 09/24/25 19:49 Nucleated RBCs # 0.0 /100WBC 09/24/25 19:49 Sodium 137 mmol/L (136-145) 09/24/25 19:49 Potassium 4.2 mmol/L (3.5-5.1) 09/24/25 19:49 Chloride 99 mmol/L (98-107) 09/24/25 19:49 Carbon Dioxide 25 mmol/L (22-29) 09/24/25 19:49 Anion Gap 17.2 (5-19) 09/24/25 19:49 BUN 12 mg/dL (8-23) 09/24/25 19:49 Creatinine 0.9 mg/dL (0.5-0.9) 09/24/25 19:49 GFR Calculation Not Reportable 09/24/25 19:49 Glucose 130 mg/dL (65-115) H 09/24/25 19:49 Calculated Osmolality 286 mOsm/kg (285-295) 09/24/25 19:49 Lactic Acid 1.1 mmol/L (0.5-2.2) 09/24/25 21:36 Calcium 9.7 mg/dL (8.5-10.5) 09/24/25 19:49 Total Bilirubin 0.8 mg/dL (0.15-1.2) 09/24/25 19:49 AST 46 U/L (0-32) H 09/24/25 19:49 ALT 21 U/L (0-33) 09/24/25 19:49 Alkaline Phosphatase 56 U/L (35-105) 09/24/25 19:49 Troponin T Baseline 16 ng/L (0-10) H 09/24/25 19:49 Troponin T 60 Minute 15.66 ng/L (0-10) H 09/24/25 21:03 Delta Troponin T -0.34 ABS# (0-10) L 09/24/25 21:03 NT-Pro-B Natriuret Pep 141 pg/mL (0-125) H 09/24/25 19:49 Total Protein 7.8 g/dL (6.6-8.7) 09/24/25 19:49 Albumin 4.5 g/dL (3.5-5.2) 09/24/25 19:49 Globulin 3.3 g/dL (1.3-4.6) 09/24/25 19:49 Influenza A (PCR) Negative (Negative) 09/24/25 21:55 Influenza Type B (PCR) Negative (Negative) 09/24/25 21:55 RSV (PCR) Negative (Negative) 09/24/25 21:55 SARS-CoV-2 (PCR) Negative (Negative) 09/24/25 21:55 Discharge Plan Discharge Patient Disposition: Home Clinical Impression: COPD exacerbation Pneumonia Qualifiers: Pneumonia type: due to unspecified organism Laterality: right Lung location: lower lobe of lung Qualified Code(s): J18.9 - Pneumonia, unspecified organism Constipation Qualifiers: Constipation type: unspecified constipation type Qualified Code(s): K59.00 - Constipation, unspecified Condition: Stable Prescriptions: New prednisone 10 mg tablets,dose pack 10 mg PO DIRECTED Qty: 21 0RF Rx Instructions: see taper instructions 6 tablets on day 1, 5 tablets on day 2, 4 tablets on day 3, 3 tablets on day 4, 2 tablets on day 5, and 1 tablet a day 6. P.o. doxycycline hyclate 100 mg tablet 100 mg PO BID 7 Days Qty: 14 0RF No Action duloxetine [Cymbalta] 60 mg capsule,delayed release(DR/EC) 60 mg PO DAILY@09 atorvastatin 40 mg tablet 40 mg PO DAILY@21 duloxetine 30 mg capsule, delayed rel sprinkle 30 mg PO DAILY@09 amlodipine 5 mg tablet 5 mg PO DAILY Qty: 90 0RF tizanidine 2 mg tablet 2 mg PO DAILY@21 PRN (Reason: Muscle Spasm) alprazolam 1 mg tablet 1 mg PO DAILY@21 aspirin 81 mg Tablet,Delayed Release (Dr/Ec) 81 mg PO DAILY@09 levothyroxine 25 mcg tablet 25 mcg PO DAILY@09 metoprolol tartrate 50 mg tablet 50 mg PO DAILY@09 albuterol sulfate 90 mcg/actuation HFA aerosol inhaler 2 inh INHALATION Q4H PRN (Reason: shortness of breath or wheezing) Qty: 6.7 0RF albuterol sulfate 2.5 mg /3 mL (0.083 %) solution for nebulization 2.5 mg inhalation Q4H PRN (Reason: shortness of breath or wheezing) Qty: 90 0RF diclofenac sodium 50 mg tablet,delayed release (DR/EC) 50 mg PO BID Qty: 14 0RF cyclobenzaprine 5 mg Tablet 5 mg PO BID PRN (Reason: Muscle Spasm) pantoprazole 40 mg Tablet,Delayed Release (Dr/Ec) 40 mg PO DAILY Qty: 14 0RF levofloxacin 750 mg Tablet 750 mg PO DAILY@0600 Qty: 4 0RF amoxicillin-pot clavulanate 875-125 mg Tablet 1 tab PO BID Qty: 8 0RF Advair Diskus 250-50 mcg/dose blister with device 1 inh inhalation BID Qty: 60 0RF Spiriva with HandiHaler 18 mcg capsule, w/inhalation device 1 cap inhalation DAILY Qty: 30 0RF Rx Instructions: puncture 1 cap using device; one dose = 2 inhalations Discharge Orders: Discharge ED (Routine); Ordered 09/24/25 Ordered By: Thai Delacruz Referrals: Meghan Holley FNP [Primary Care Provider, Unknown] Patient Instructions: Patient Portal & Jessica Instructions Activity Restrictions/Additional Instructions: Discharge Instructions Diagnosis: You are being discharged with a diagnosis of right lower lobe pneumonia. You also have chronic obstructive pulmonary disease (COPD), which is a lung condition that makes it harder to breathe. Medications: Doxycycline - Take 100 mg by mouth twice daily for 7 days to treat your pneumonia. Take this medication with a full glass of water and avoid lying down for at least 30 minutes after taking it to prevent irritation of your esophagus (food pipe). Complete the full course even if you start feeling better. Prednisone taper - This steroid medication helps reduce inflammation in your lungs. Take as directed: - Days 1-5: 40 mg once daily - Then stop This 5-day course is recommended for COPD exacerbations and helps improve breathing and recovery. Continue your regular breathing treatments as prescribed for your COPD. Use your short-acting inhalers (rescue inhalers) more frequently if you experience increased shortness of breath. Warning Signs - Call Your Doctor or Go to the Emergency Room If You Experience: - Worsening shortness of breath or breathing difficulty at rest that does not improve with your rescue inhaler - Fever (temperature above 100.4?F) - Chest pain - Confusion or changes in mental status - Swelling in your legs or ankles - Coughing up blood - Inability to eat or drink Constipation Management: To help with constipation at home: - Drink plenty of fluids (at least 6-8 glasses of water daily) - Increase fiber in your diet by eating more fruits, vegetables, and whole grains - Stay as active as possible - even short walks can help - Consider an [id number] stool softener (such as docusate) or gentle laxative if needed - Avoid straining during bowel movements General Instructions: - Rest and allow your body to recover - Avoid smoking and secondhand smoke, as this worsens COPD and slows healing from pneumonia - Wash your hands frequently to prevent spreading infection - Get adequate sleep Follow-up: Schedule a follow-up appointment with your primary care doctor within 1-2 weeks after discharge to ensure your pneumonia is improving and your COPD remains stable. Questions? If you have any questions or concerns about your medications or symptoms, contact your doctor's office. Print Language: Iraqi Coding Level of Care Code ED Repair Order Clerk for Tanya Thompson
[2025-09-24] MEDS: iohexol 350 mg/mL 500 mL Btl (per mL) IV (21:27)
[2025-09-24 21:51] VITALS: BP 158/60; PULSE 80; O2SAT 96
[2025-09-24 22:16] LABS: Lactic Sepsis W/Reflex 1.1 mmol/L (0.5-2.2)
[2025-09-24 22:25] VITALS: BP 156/78; O2SAT 90
[2025-09-24 22:40] LABS: Respiratory Syncytial Virus Ce NEGATIVE (Negative); SARS-CoV-2 PCR NEGATIVE (Negative)
[2025-09-24 22:56] VITALS: PULSE 71; RESP 18; O2SAT 90
[2025-09-24] MEDS: lactulose oral liq 20 gm/30 mL UDC 30 GM PO (23:23)
[2025-09-24] MEDS: magnesium citrate Btl 296 mL PO (23:25)
[2025-09-24] MEDS: methylPREDNISolone sod succ 125 mg/2 mL INJ IVP (23:26)
[2025-09-24 23:30] VITALS: BP 150/72; PULSE 96; O2SAT 89
[2025-09-24 23:38] VITALS: BP 149/68; PULSE 87; O2SAT 90
== END 2025-09-24 23:46 | disposition home or self-care (01) ==
PROVIDERS: Emergency Medicine; Emergency Provider Physician Assistant; PCP Nurse Practitioner Family
DX: J44.1 Chronic obstructive pulmonary disease with (acute) exacerbation (principal); J18.9 Pneumonia, unspecified organism; K59.00 Constipation, unspecified; Z11.52 Encounter for screening for COVID-19; Z79.82 Long term (current) use of aspirin; F17.210 Nicotine dependence, cigarettes, uncomplicated; Z86.73 Personal history of transient ischemic attack (TIA), and cerebral infarction without residual deficits; E78.5 Hyperlipidemia, unspecified; I10 Essential (primary) hypertension; E11.9 Type 2 diabetes mellitus without complications
CPT/HCPCS: 36415; 71045; 71260; 74177; 80053; 83605; 83880; 84484; 85025; 87040; 87637; 93005; 94640; 96374; 99285; J2919; J9999